=== PATIENT | female | born 1935 | race Caucasian/White ===

== ENCOUNTER → 2017-01-05 | Outpatient (CLI) | payer MEDICARE, BC ==
--- NOTE | 2017-01-05 15:41 | US ---
EXAMINATION TYPE: US thyroid st tissue head/neck DATE OF EXAM: 01/05/2017 COMPARISON: 08/26/2010 CLINICAL HISTORY: E04.1 Thyroid Nodule. Follow up nodule. Hx of BX= WNL per patient. On synthroid. GLAND SIZE: Right Lobe: 2.5 x 1.0 x 1.3 cm Overall Parenchyma: Slightly heterogenous Left Lobe: 2.1 x 1.4 x 1.1 cm cm Overall Parenchyma: Slightly heterogenous Isthmus Thickness: 0.2 cm NODULES RIGHT: # of nodules measured on right: 0 LEFT: # of nodules measured on left: 1 1. 1.5 X 1.0 x 0.9 cm mixed nodule at the mid/lower pole with poorly defined margins. This nodule is taller than wide and shows slight intranodular vascularity. Prior size: 1.8 x 1.2 x 1.1 cm ISTHMUS: # of nodules measured in the isthmus: 0 Bilateral neck scanned, no evidence of lymphadenopathy. IMPRESSION: No enlargement of a left lobe thyroid nodule
== END | disposition home or self-care (01) ==
LOC: RADUSWWP 10:18
PROVIDERS: ATTEND Internal Medicine Endocrinology, Diabetes & Metabolism
DX: E04.1 Nontoxic single thyroid nodule (principal)
CPT/HCPCS: 76536

== ENCOUNTER 2017-03-09 13:23 | Emergency (ER) | payer MEDICARE, BC ==
--- NOTE | 2017-03-09 14:15 | ED ---
General Adult HPI - General Chief complaint: ENT Stated complaint: Nose Bleed Time Seen by Provider: 03/09/17 13:55 Source: patient, RN notes reviewed Mode of arrival: ambulatory Limitations: no limitations - History of Present Illness Initial comments: chief complaint and history of present illness an 81-year-old female with a complaint of left sided nosebleed. Patient reports it started proximal one hour ago. Nose clamp was placed this did control the bleeding that was no posterior bleeding. Patient reports this occurs 2 or 3 times per week. Patient also adds that she has CPAP machine on every night. - Related Data Home Medications Medication Instructions Recorded Confirmed Aspirin [Adult Low Dose Aspirin EC] 81 mg PO DAILY 10/05/16 03/09/17 Dulaglutide [Trulicity] 1.5 mg SQ DAILY 10/05/16 03/09/17 Glimepiride [Amaryl] 2 mg PO DAILY 10/05/16 03/09/17 Levothyroxine Sodium [Synthroid] 75 mcg PO DAILY 10/05/16 03/09/17 [place]-3 Fatty Acids [[place]-3] 12,000 mg PO DAILY 10/05/16 03/09/17 Red Yeast Rice 1,200 mg PO DAILY 10/05/16 03/09/17 metFORMIN HCL 1,000 mg PO DAILY 10/05/16 03/09/17 Cholecalciferol [Vitamin D3] 1,000 unit PO DAILY 03/09/17 03/09/17 Ergocalciferol [Vitamin D2] 50,000 unit PO Q14D 03/09/17 03/09/17 Allergies Allergy/AdvReac Type Severity Reaction Status Date / Time milk AdvReac Diarrhea Verified 03/09/17 14:24 Review of Systems ROS Statement: Those systems with pertinent positive or pertinent negative responses have been documented in the HPI. review of systems no headache or visual acuity changes she has left nares abuse axis, no sore throat no chest pain shows breath GI/ problems. All systems were reviewed. Past medical problems significant for non-insulin diabetes mellitus, hypothyroidism and she uses CPAP machine for sleep apnea. Surgeries include hysterectomyPartial. Family history mother had esophageal carcinoma.nonsmoker nondrinker. ALLERGIES to milk. ROS Other: All systems not noted in ROS Statement are negative. Past Medical History Past Medical History: Diabetes Mellitus, Sleep Apnea/CPAP/BIPAP, Thyroid Disorder History of Any Multi-Drug Resistant Organisms: None Reported Past Surgical History: Hysterectomy Past Anesthesia/Blood Transfusion Reactions: No Reported Reaction Past Psychological History: No Psychological Hx Reported Smoking Status: Former smoker Past Alcohol Use History: None Reported Past Drug Use History: None Reported General Exam - General Exam Comments Initial Comments: General: The patient is awake and alert, here with left nares epistaxis ongoing for one hour. Controlled by squeezing the anterior aspect of the nose. Vital signs temp 98.0 pulse 79 respiratory rate 17, pulse ox 98% room air blood pressure 174 /70. Patient does not normally have high blood pressure. This will be rechecked. Eye: Pupils are equal, round and reactive to light, extra-ocular movements are intact ; there is normal conjunctiva bilaterally. No signs of icterus. Ears, nose, mouth and throat: moist mucous membranes. Examination of the left nares does find 1 spot from which the patient appears to be bleeding from currently controlled with a clot. This area was cauterized with silver nitrate with good effect. Neck: The neck is supple, there is no tenderness or JVD. Cardiovascular: no complaint chest pain or palpitations. Respiratory: no shortness of breath. No wheezing appreciated. Gastrointestinal: no nausea no vomiting no diarrhea complained of. Neurological: no neuro deficits Skin: no bruising. Limitations: no limitations Course Vital Signs 03/09/17 03/09/17 13:43 14:15 Temperature 98.0 F Pulse Rate 79 68 Respiratory 17 18 Rate Blood Pressure 174/70 178/73 O2 Sat by Pulse 98 96 Oximetry Procedures - Procedures Initial comment: procedure; the area was identified within the left nares is a probable source for her epistaxis. This was cauterized with silver nitrate with good effect. Patient with a blood pressure rechecked and observed for short while and make sure the bleeding is controlled. Patient was advised to follow-up with her ENT because of the frequency of her epistaxis. The patient does not appear to be anemic. Dr. Del [place] Medical Decision Making - Medical Decision Making No bleeding is noted after silver nitrate was used to cauterize the area. Vital signs remained stable. Patient alert. Advised follow-up with your family doctor and/or ENT as needed. Disposition Clinical Impression: Epistaxis not due to trauma Disposition: HOME SELF-CARE Condition: Stable Instructions: Nosebleed (ED) Additional Instructions: follow directions. Follow-up family physician or return emergency room as needed. Referrals: Ariana Pastor MD [Primary Care Provider] - 1-2 days Time of Disposition: 14:40
[2017-03-09 14:18] VITALS: RESP 18
[2017-03-09 14:51] VITALS: BP 145/67; PULSE 65; TEMP 98.2
== END 2017-03-09 14:51 | disposition home or self-care (01) ==
LOC: EC 13:23
DX: R04.0 Epistaxis (principal); Z91.011 Allergy to milk products; E11.9 Type 2 diabetes mellitus without complications; G47.30 Sleep apnea, unspecified; E07.9 Disorder of thyroid, unspecified; Z87.891 Personal history of nicotine dependence; Z79.82 Long term (current) use of aspirin; Z79.84 Long term (current) use of oral hypoglycemic drugs; Z79.899 Other long term (current) drug therapy; Z99.89 Dependence on other enabling machines and devices
CPT/HCPCS: 30901; 99283

== ENCOUNTER → 2017-03-23 | Outpatient (CLI) | payer MEDICARE, BC ==
--- NOTE | 2017-03-24 11:20 | MM ---
Reason for exam: screening (asymptomatic). Last mammogram was performed 1 year and 2 months ago. History: Patient is postmenopausal. Physical Findings: A clinical breast exam by your physician is recommended on an annual basis and results should be correlated with mammographic findings. MG 3D Screening Mammo W/Cad Bilateral CC and MLO view(s) were taken. Prior study comparison: January 26, 2016, bilateral MG 3d screening mammo w/cad. January 14, 2015, bilateral MG screening mammo w CAD. The breast tissue is heterogeneously dense. This may lower the sensitivity of mammography. Stable benign calcifications. There is no discrete abnormality. No significant changes when compared with prior studies. ASSESSMENT: Benign, BI-RAD 2 RECOMMENDATION: Routine screening mammogram of both breasts in 1 year.
== END | disposition home or self-care (01) ==
LOC: RADMAMWWP 15:15
PROVIDERS: ATTEND Family Medicine
DX: Z12.31 Encounter for screening mammogram for malignant neoplasm of breast (principal)
CPT/HCPCS: 77063; 77067

== ENCOUNTER 2017-12-11 12:15 | Emergency (ER) | payer MEDICARE, BC ==
[2017-12-11 12:21] VITALS: BP 149/77; PULSE 73; RESP 20; TEMP 98.3
[2017-12-11] MEDS ORDERED: SILVER NITRATE APPLICATOR 1 EACH STICK..EA. TOPICAL STA (12:35)
--- NOTE | 2017-12-11 12:41 | ED ---
General Adult HPI - General Chief complaint: ENT Stated complaint: Nosebleed Source: patient Mode of arrival: ambulatory Limitations: no limitations - History of Present Illness Initial comments: Dictation was produced using Plann[employer] dictation software. please excuse any grammatical, word or spelling errors. Chief Complaint: 82-year-old female past medical history of epistaxis presents with nosebleeds. History of Present Illness: 82-year-old female presents with severe episode of epistaxis. Patient has history of intermittent epistaxis. She states that last night she had a really bad bleed from her nose. Patient has seen ENT in the past. She uses CPAP machine every night. Patient states she's had intermittent nosebleeds however they're well controlled at home by herself however this time was much worse. Patient denies any anticoagulation used she does take baby aspirin. Denies any history of hypertension. Patient states that since being in the emergency department her nose has stopped bleeding. The ROS documented in this emergency department record has been reviewed and confirmed by me. Those systems with pertinent positive or negative responses have been documented in the HPI. All other systems are other negative and/or noncontributory. - Related Data Home Medications Medication Instructions Recorded Confirmed Aspirin [Adult Low Dose Aspirin EC] 81 mg PO DAILY 10/05/16 03/09/17 Dulaglutide [Trulicity] 1.5 mg SQ DAILY 10/05/16 03/09/17 Glimepiride [Amaryl] 2 mg PO DAILY 10/05/16 03/09/17 Levothyroxine Sodium [Synthroid] 75 mcg PO DAILY 10/05/16 03/09/17 [place]-3 Fatty Acids [[place]-3] 12,000 mg PO DAILY 10/05/16 03/09/17 metFORMIN HCL 1,000 mg PO DAILY 10/05/16 03/09/17 Cholecalciferol [Vitamin D3] 1,000 unit PO DAILY 03/09/17 03/09/17 Ergocalciferol [Vitamin D2] 50,000 unit PO Q14D 03/09/17 03/09/17 Ascorbic Acid [Vitamin C with Dulce 500 mg PO DAILY 12/11/17 12/11/17 Hips] Rosuvastatin Calcium [Crestor] 40 mg PO HS 12/11/17 12/11/17 Previous Rx's Medication Instructions Recorded Sodium Chloride [[place]] 1 spray EA NOSTRIL QID #1 bottle 12/11/17 Allergies Allergy/AdvReac Type Severity Reaction Status Date / Time milk AdvReac Diarrhea Verified 12/11/17 12:43 Review of Systems ROS Statement: Those systems with pertinent positive or pertinent negative responses have been documented in the HPI. ROS Other: All systems not noted in ROS Statement are negative. Past Medical History Past Medical History: Diabetes Mellitus, Sleep Apnea/CPAP/BIPAP, Thyroid Disorder History of Any Multi-Drug Resistant Organisms: None Reported Past Surgical History: Hysterectomy Past Anesthesia/Blood Transfusion Reactions: No Reported Reaction Past Psychological History: No Psychological Hx Reported Smoking Status: Former smoker Past Alcohol Use History: None Reported Past Drug Use History: None Reported General Exam - General Exam Comments Initial Comments: PHYSICAL EXAM: General Impression: Alert and oriented x3, not in acute distress HEENT: Normocephalic atraumatic, extra-ocular movements intact, pupils equal and reactive to light bilaterally, mucous membranes moist, no blood in the posterior oropharynx, there is a small bleeding appearing area to the anterior nasal septum on the left naris Cardiovascular: Heart regular rate and rhythm, S1&S2 audible, no murmurs, rubs or gallops Chest: Lungs clear to auscultation bilaterally, no rhonchi, no wheeze, no rales Abdomen: Bowel sounds present, abdomen soft, non-tender, non-distended, no organomegaly Musculoskeletal: Pulses present and equal in all extremities, no peripheral edema Motor: Power 5/5 bilaterally, no focal deficits noted Neurological: CN II-XII grossly intact, no focal motor or sensory deficits noted Skin: Intact with no visualized rashes Psych: Normal affect and mood Limitations: no limitations Course Vital Signs 12/11/17 12:19 Temperature 98.3 F Pulse Rate 73 Respiratory 20 Rate Blood Pressure 149/77 O2 Sat by Pulse 99 Oximetry Medical Decision Making - Medical Decision Making ED course: Her old female presents with clinical presentation consistent with anterior epistaxis. Vital signs upon arrival are within acceptable limits. Source of bleeding is identified on physical examination. Patient hemodynamically stable. No indication for laboratory evaluation at this time. Patient not on any anticoagulation medications warranting coag elation panel evaluation. That area is cauterized. Patient is told that her frequent nosebleeds are likely secondary to CPAP machine. Patient told to keep the nasal septum moist prior to applying her CPAP machine at night. Anterior nasal septum is cauterized using silver nitrate stick. Patient tolerated procedure well. Patient given sterile jelly to apply to her nose to prevent further bleeding. Patient also prescribed a [place] Startex. She is advised to keep the septum moist. Advised to follow-up with ENT physician upon discharge. Disposition Clinical Impression: Epistaxis Disposition: HOME SELF-CARE Instructions: Nosebleed (ED) Prescriptions: Sodium Chloride [[place]] 1 spray EA NOSTRIL QID #1 bottle Is patient prescribed a controlled substance at d/c from ED?: No Referrals: Ariana Pastor MD [Primary Care Provider] - 1-2 days Peter Villa MD [STAFF PHYSICIAN] - 1-2 days Time of Disposition: 12:48
== END 2017-12-11 13:29 | disposition home or self-care (01) ==
LOC: EC 12:15
DX: R04.0 Epistaxis (principal); E11.9 Type 2 diabetes mellitus without complications; E07.9 Disorder of thyroid, unspecified; G47.30 Sleep apnea, unspecified; Z87.891 Personal history of nicotine dependence; Z99.89 Dependence on other enabling machines and devices; Z90.710 Acquired absence of both cervix and uterus; Z79.82 Long term (current) use of aspirin; Z79.84 Long term (current) use of oral hypoglycemic drugs; Z79.899 Other long term (current) drug therapy; Z91.011 Allergy to milk products
CPT/HCPCS: 30901; 99283

== ENCOUNTER → 2018-02-19 | Outpatient (CLI) | payer MEDICARE, BC ==
[2018-02-19 16:27] LABS: Albumin 4.3 g/dL (3.80-4.90); Albumin/Globulin Ratio 2.69 (1.20-2.10); Anion Gap 4.4 mmol/L (4.00-12.00); Calcium 8.9 mg/dL (8.7-10.3); Carbon Dioxide 27.6 mmol/L (21.6-31.8); Globulin 1.6 g/dL (2.1-3.7); LDL Cholesterol,Calculated 44.8 mg/dL (0.0-131.0); Total Bilirubin 0.4 mg/dL (0.2-1.2); Total Protein 5.9 g/dL (6.2-8.2); VLDL Calculation 16.2 mg/dL (5.00-40.00)
[2018-02-19 22:30] LABS: Hemoglobin A1C 7.6 % (4.0-6.0)
== END ==
LOC: LABWHC1 09:53
PROVIDERS: ATTEND Internal Medicine Endocrinology, Diabetes & Metabolism
DX: E11.65 Type 2 diabetes mellitus with hyperglycemia (principal)
CPT/HCPCS: 36415; 80053; 80061; 82043; 82570; 82607; 83036; 84443

== ENCOUNTER → 2018-08-08 | Outpatient (CLI) | payer MEDICARE, BC ==
--- NOTE | 2018-08-08 16:07 | US ---
EXAMINATION TYPE: US thyroid st tissue head/neck DATE OF EXAM: 08/08/2018 COMPARISON: NONE CLINICAL HISTORY: E04.1 Thyroid nodule. Thyroid nodule GLAND SIZE: Right Lobe: 2.8 x 1.2 x 1.3 cm Overall Parenchyma: homogenous Left Lobe: 2.5 x 1.3 x 1.5 cm Overall Parenchyma: heterogeneous Isthmus Thickness: 0.3 cm NODULES RIGHT: # of nodules measured on right: 0 LEFT: # of nodules measured on left: 1 1. 1.5 X 1.1 x 1.1 cm mixed nodule at the mid pole with poorly defined margins; . This nodule is t aller than wide and shows intranodular vascularity. Prior size: 1.5 x 1.0 x 0.9 cm ISTHMUS: # of nodules measured in the isthmus: 0 Bilateral neck scanned, no evidence of lymphadenopathy. IMPRESSION: Stable left thyroid nodule.
== END ==
LOC: RADUSWWP 14:49
PROVIDERS: ATTEND Internal Medicine Endocrinology, Diabetes & Metabolism
DX: E04.1 Nontoxic single thyroid nodule (principal)
CPT/HCPCS: 76536; 77080

== ENCOUNTER → 2018-08-08 | Outpatient (CLI) | payer MEDICARE, BC ==
--- NOTE | 2018-08-09 07:26 | BD ---
EXAMINATION TYPE: Axial Bone Density DATE OF EXAM: 08/08/2018 COMPARISON: NONE CLINICAL HISTORY: disorder of bone Height: 5 '1 /2 Weight: 113 FRAX RISK QUESTIONS: History of Fracture in Adulthood: y Secondary Osteoporosis: RISK FACTORS HISTORY OF: Hip Fracture (Right): When: 2019 History of Wrist Fracture: Rt When: 68 Surgery to Hip(right/): When: 2019 Postmenopausal woman: y MEDICATIONS: Thyroid Medications: Which medication: Levothyroxine How Lon years Additional Medications: type 2 diabetes Additional History: EXAM MEASUREMENTS: Bone mineral densitometry was performed using the [employer] System. Bone mineral density as measured about the Lumbar spine is: ----- L1-L4(G/cm2): 1.250 T Score Values are as follows: ----- L2: -0.8 ----- L3: 1.3 ----- L4: 2.3 ----- L1-L4: 0.6 Bone mineral density about the L hip (g/cm2): 0.945 T Score values are as follows: -----L Neck: -0.7 -----L Total: -1.1 IMPRESSION: Normal (Values between +1 and -1 indicate normal bone mass). Consider repeating this study in 5 year s or sooner if there is some new clinical indication. NOTE: T-SCORE=SD OF THE YOUNG ADULT MEAN.
== END ==
LOC: RADBDWWP 14:47
PROVIDERS: ATTEND Family Medicine
DX: M89.9 Disorder of bone, unspecified (principal)
CPT/HCPCS: 77080

== ENCOUNTER → 2019-08-28 | Outpatient (CLI) | payer MEDICARE, OTHER ==
--- NOTE | 2019-08-28 13:29 | US ---
EXAMINATION TYPE: US thyroid st tissue head/neck DATE OF EXAM: 08/28/2019 COMPARISON: US 08/08/2018 CLINICAL HISTORY: Thyroid nodule E04.1. GLAND SIZE: Right Lobe: 3.2 x 1.1 x 0.9 cm Overall Parenchyma: heterogenous Left Lobe: 2.8 x 1.2 x 1.3 cm Overall Parenchyma: heterogeneous Isthmus Thickness: 0.2 cm NODULES RIGHT: # of nodules measured on right: 0 LEFT: # of nodules measured on left: 1 1. 1.6 X 1.1 x 1.1 cm hypoechoic mixed nodule at the mid pole with well-defined margins; . This no dule is wider than tall and shows intranodular vascularity. Prior size: 1.5 x 1.1 x 1.1 cm ISTHMUS: # of nodules measured in the isthmus: 0 Bilateral neck scanned, no evidence of lymphadenopathy. Stable left side thyroid nodule IMPRESSION: Stable 1.6 cm left thyroid nodule
== END | disposition home or self-care (01) ==
LOC: RADUSWWP 12:33
PROVIDERS: ATTEND Internal Medicine Endocrinology, Diabetes & Metabolism
DX: E04.1 Nontoxic single thyroid nodule (principal)
CPT/HCPCS: 76536

== ENCOUNTER 2019-10-17 22:19 | Inpatient (IN) | payer MEDICARE, OTHER ==
[2019-10-17] MEDS: MORPHINE SULFATE 4 MG/ML SYRINGE IVP STA (23:19)
[2019-10-17 23:48] LABS: Basophils % (A) 0 %; Eosinophils # (A) 0.1 k/uL (0-0.7); Eosinophils % (A) 1 %; HCT 34.6 % (34.0-46.0); HGB 11.4 gm/dL (11.4-16.0); Lymphocytes # (A) 0.8 k/uL (1.0-4.8); Lymphocytes % (A) 8 %; MCH 27.6 pg (25.0-35.0); MCHC 32.8 g/dL (31.0-37.0); MCV 84.3 fL (80.0-100.0); Mean Platelet Volume 7.2; Monocytes # (A) 0.4 k/uL (0-1.0); Monocytes % (A) 3 %; Neutrophils # (A) 9.1 k/uL (1.3-7.7); Neutrophils % (A) 88 %; Platelet Count 285 k/uL (150-450); RBC 4.11 m/uL (3.80-5.40); WBC 10.3 k/uL (3.8-10.6)
--- NOTE | 2019-10-17 23:49 | ED ---
Fall HPI - General Chief Complaint: Fall Stated Complaint: Fall Time Seen by Provider: 10/17/19 22:38 Source: patient, EMS, RN notes reviewed, old records reviewed Mode of arrival: EMS - History of Present Illness Initial Comments: Patient is an 83-year-old female who lives in assisted living of [facility]. She has a history of diabetes sleep apnea and thyroid disorder. She presents today after falling on her left hip while she was walking to get the [place]. She reports that she stumbled with her weight going on the left hip. She also states she fell on her left shoulder. She's had previous right hip fracture 2 years ago it was completed at [facility] in [place]. - Related Data Home Medications Medication Instructions Recorded Confirmed Aspirin [Adult Low Dose Aspirin EC] 81 mg PO HS 10/05/16 10/17/19 Dulaglutide [Trulicity] 1.5 mg SQ Q10D 10/05/16 10/17/19 Glimepiride [Amaryl] 2 mg PO DAILY 10/05/16 10/17/19 Levothyroxine Sodium [Synthroid] 75 mcg PO [id number] 10/05/16 10/17/19 metFORMIN HCL 1,000 mg PO BID 10/05/16 10/17/19 Cholecalciferol [Vitamin D3] 2,000 unit PO DAILY 03/09/17 10/17/19 Ergocalciferol [Vitamin D2] 50,000 unit PO Q14D 03/09/17 10/17/19 Rosuvastatin Calcium [Crestor] 40 mg PO HS 12/11/17 10/17/19 [place]-3 Fatty Acids/Fish Oil 1 cap PO DAILY 10/17/19 10/17/19 [[place]-3 Fish Oil 1,200 mg Sfgl] Vitamin B-12 1000mcg Sl Tab 1,000 mcg SL DAILY 10/17/19 10/17/19 Allergies Allergy/AdvReac Type Severity Reaction Status Date / Time milk AdvReac Diarrhea Verified 10/17/19 23:19 Review of Systems ROS Statement: Those systems with pertinent positive or pertinent negative responses have been documented in the HPI. ROS Other: All systems not noted in ROS Statement are negative. Past Medical History Past Medical History: Diabetes Mellitus, Sleep Apnea/CPAP/BIPAP, Thyroid Disorder History of Any Multi-Drug Resistant Organisms: None Reported Past Surgical History: Hysterectomy Past Anesthesia/Blood Transfusion Reactions: No Reported Reaction Past Psychological History: No Psychological Hx Reported Smoking Status: Former smoker Past Alcohol Use History: Occasional Past Drug Use History: None Reported General Exam - General Exam Comments Initial Comments: 83-year-old female. Alert and oriented. No distress. Limitations: no limitations General appearance: alert, in no apparent distress Head exam: Present: atraumatic, normocephalic, normal inspection Eye exam: Present: normal appearance, PERRL, EOMI. Absent: scleral icterus, conjunctival injection, periorbital swelling ENT exam: Present: normal exam, mucous membranes moist Neck exam: Present: normal inspection. Absent: tenderness, meningismus, lymphadenopathy Respiratory exam: Present: normal lung sounds bilaterally. Absent: respiratory distress, wheezes, rales, rhonchi, stridor Cardiovascular Exam: Present: regular rate, normal rhythm, normal heart sounds. Absent: systolic murmur, diastolic murmur, rubs, gallop, clicks GI/Abdominal exam: Present: soft, normal bowel sounds. Absent: distended, tenderness, guarding, rebound, rigid Extremities exam: Present: normal inspection, full ROM, normal capillary refill. Absent: tenderness, pedal edema, joint swelling, calf tenderness Left Shoulder Exam: Present: full ROM, tenderness (Patient has tenderness over the greater tuberosity.). Absent: normal inspection Upper Arm exam: Present: normal inspection, full ROM Elbow exam: Present: normal inspection, full ROM Forearm Wrist exam: Present: normal inspection, full ROM Hand Wrist exam: Present: normal inspection, full ROM Neuro motor exam: Present: wrist extension intact, thumb opposition intact, thumb IP flexion intact, thumb adduction intact, fingers 2-5 abduction intact Left Hip exam: Present: normal inspection, tenderness Upper Leg exam: Present: normal inspection, full ROM Knee exam: Present: normal inspection, full ROM Lower Leg exam: Present: normal inspection, full ROM Ankle exam: Present: normal inspection, full ROM Foot/Toe exam: Present: normal inspection, full ROM Neurovascular tendon exam: Present: no vascular compromise Gait: unable to bear weight Back exam: Present: normal inspection Neurological exam: Present: alert, oriented X3, CN II-XII intact Psychiatric exam: Present: normal affect, normal mood Skin exam: Present: warm, dry, intact, normal color. Absent: rash Course Vital Signs 10/17/19 22:22 Temperature 98.3 F Pulse Rate 87 Respiratory 16 Rate Blood Pressure 169/78 O2 Sat by Pulse 96 Oximetry Procedures - Orthopedic Splinting/Casting Injury #1 Side: left Upper Extremity Injury Location: shoulder Upper Extremity Immobilizer: sling/shoulder immobilizer Medical Decision Making - Medical Decision Making Patient is an 83-year-old female Patient is returned today with trip and fall today landing on her left hip and left shoulder. X-rays reveal evidence of the greater trochanter fracture on the left shoulder and humerus. X-ray shows an intertrochanteric fracture of the left hip. Patient is not on blood thinners. Patient was informed of these results and will be admitted this time. Discussed the case personally with Dr. Thornton who accepts admission. - Lab Data Result diagrams: 10/17/19 23:30 10/17/19 23:30 Lab Results 10/17/19 10/17/19 10/17/19 Range/Units 23:30 23:30 23:30 WBC 10.3 (3.8-10.6) k/uL RBC 4.11 (3.80-5.40) m/uL Hgb 11.4 (11.4-16.0) gm/dL Hct 34.6 (34.0-46.0) % MCV 84.3 (80.0-100.0) fL MCH 27.6 (25.0-35.0) pg MCHC 32.8 (31.0-37.0) g/dL RDW 14.0 (11.5-15.5) % Plt Count 285 (150-450) k/uL Neutrophils % 88 % Lymphocytes % 8 % Monocytes % 3 % Eosinophils % 1 % Basophils % 0 % Neutrophils # 9.1 H (1.3-7.7) k/uL Lymphocytes # 0.8 L (1.0-4.8) k/uL Monocytes # 0.4 (0-1.0) k/uL Eosinophils # 0.1 (0-0.7) k/uL Basophils # 0.0 (0-0.2) k/uL PT 9.6 (9.0-12.0) sec INR 0.9 (<1.2) APTT 25.1 (22.0-30.0) sec Sodium 134 L (137-145) mmol/L Potassium 3.9 (3.5-5.1) mmol/L Chloride 102 (98-107) mmol/L Carbon Dioxide 22 (22-30) mmol/L Anion Gap 10 mmol/L BUN 15 (7-17) mg/dL Creatinine 0.75 (0.52-1.04) mg/dL Est GFR (CKD-EPI)AfAm 85 (>60 ml/min/1.73 sqM) Est GFR (CKD-EPI)NonAf 74 (>60 ml/min/1.73 sqM) Glucose 188 H (74-99) mg/dL Calcium 9.1 (8.4-10.2) mg/dL Total Bilirubin 0.5 (0.2-1.3) mg/dL AST 20 (14-36) U/L ALT 13 (4-34) U/L Alkaline Phosphatase 79 (38-126) U/L Total Protein 6.2 L (6.3-8.2) g/dL Albumin 3.9 (3.5-5.0) g/dL - Radiology Data Radiology results: report reviewed Acute nondisplaced intertrochanteric fracture of the left femur. Acute fracture of the greater tuberosity of the humerus. Chest x-ray shows pleural reaction and atelectasis of the left lung base. Normal heart. Disposition Clinical Impression: Humerus fracture, Intertrochanteric fracture of left hip Disposition: ADMITTED IP TO THIS [facility] Condition: Stable Is patient prescribed a controlled substance at d/c from ED?: No Referrals: Soren Kelly DO [Primary Care Provider] - 1-2 days Time of Disposition: 00:15
--- NOTE | 2019-10-17 23:51 | XR ---
EXAMINATION TYPE: XR chest 1V DATE OF EXAM: 10/17/2019 COMPARISON: NONE HISTORY: Fall. Pain. TECHNIQUE: Single view FINDINGS: There is some pleural reaction and atelectasis at the lateral left lung base. The other mad[place] g nam are fairly clear. There is no evidence of pneumothorax. Heart size is normal. There is no he art failure. I see no rib fracture. IMPRESSION: Pleural reaction and atelectasis left lung base. Normal heart.
--- NOTE | 2019-10-17 23:52 | XR ---
EXAMINATION TYPE: XR shoulder complete LT DATE OF EXAM: 10/17/2019 COMPARISON: NONE HISTORY: Shoulder pain TECHNIQUE: FINDINGS: There is nondisplaced 2.5 cm chip fracture of the greater tuberosity of the humerus. There is no dislocation. The scapula appears intact. AC joint is intact. IMPRESSION: Acute fracture of the greater tuberosity of the humerus.
--- NOTE | 2019-10-17 23:53 | XR ---
EXAMINATION TYPE: XR Hip LT and AP Pelvis DATE OF EXAM: 10/17/2019 COMPARISON: NONE HISTORY: Fall. Hip pain TECHNIQUE: 3 views FINDINGS: The pelvic ring is intact. There is old right hip nailing noted. There is an acute fracture of the proximal left femur which is predominantly intertrochanteric. There is no displacement. There is some narrowing and spurring at the left hip joint. Sacroiliac joints appear normal. IMPRESSION: Acute nondisplaced intertrochanteric fracture left femur.
[2019-10-17 23:56] LABS: INR 0.9 (<1.2); Partial Thromboplastin Time 25.1 sec (22.0-30.0); Prothrombin Time 9.6 sec (9.0-12.0)
[2019-10-18] LABS: Albumin 3.9 g/dL (3.5-5.0); Calcium 9.1 mg/dL (8.4-10.2); Potassium 3.9 mmol/L (3.5-5.1); Total Bilirubin 0.5 mg/dL (0.2-1.3); Total Protein 6.2 g/dL (6.3-8.2)
[2019-10-18] MEDS ORDERED: NALOXONE 0.4 MG/ML 1 ML VIAL IV PRN ×2 (00:15→19:43)
[2019-10-18] MEDS ORDERED: MORPHINE SULFATE 4 MG/ML SYRINGE IV PRN (00:15)
[2019-10-18] MEDS ORDERED: ACETAMINOPHEN TAB 325 MG TAB PO PRN (00:15)
[2019-10-18] MEDS ORDERED: IBUPROFEN 400 MG TAB PO PRN (00:15)
[2019-10-18] MEDS ORDERED: ONDANSETRON 4 MG/2 ML VIAL IVP PRN (00:15)
[2019-10-18] MEDS: SODIUM CHLORIDE 0.9% 1,000 ML IV SCH ×3 (00:52→20:25)
[2019-10-18] MEDS ORDERED: ENOXAPARIN 40 MG/0.4 ML SYRINGE SQ SCH (10:00)
[2019-10-18] MEDS ORDERED: NON FORMULARY DRUG (Dulaglutide [Trulicity] 1.5 MG) SQ SCH (10:00)
--- NOTE | 2019-10-18 10:06 | P.HPOR ---
<Jazmine Donovan J - Last Filed: 10/18/19 09:54> History of Present Illness H&P Date: 10/18/19 Chief Complaint: Left intertrochanteric hip fracture The patient is an an 83-year-old female with a past medical history including diabetes mellitus, sleep apnea, and hypothyroidism who presented to the emergency department last night after sustaining a fall in her apartment building. She states that she went down to get her mail in the hallway and she turned quickly and lost her balance. She fell onto her left side. She denies hitting her head. The patient does have a history of a right hip fracture that was fixed at [facility] and she was following up with Dr. Bobo locally. She does live alone in her assisted living apartment and has a boyfriend of 10 years that lives a block away. She does not use a cane or a walker at home. She was found to have a left intertrochanteric fracture upon evaluation in the ER and she was admitted to orthopedics for further surgical treatment. The patient was also complaining of left shoulder pain after the fall and x-rays revealed a left greater tuberosity fracture of the humerus. Review of Systems Constitutional: Denies chills, Denies fever Cardiovascular: Denies chest pain, Denies shortness of breath Respiratory: Denies cough Gastrointestinal: Denies abdominal pain, Denies diarrhea, Denies nausea, Denies vomiting Musculoskeletal: left: hip pain, hip stiffness, hip swelling, shoulder pain, mehran ulder stiffness, shoulder swelling Past Medical History Past Medical History: Diabetes Mellitus, Sleep Apnea/CPAP/BIPAP, Thyroid Disorder History of Any Multi-Drug Resistant Organisms: None Reported Past Surgical History: Hysterectomy Past Anesthesia/Blood Transfusion Reactions: No Reported Reaction Past Psychological History: No Psychological Hx Reported Smoking Status: Former smoker Past Alcohol Use History: Occasional Past Drug Use History: None Reported - Past Family History Father Family Medical History: No Reported History Medications and Allergies Home Medications Medication Instructions Recorded Confirmed Type Aspirin [Adult Low Dose Aspirin EC] 81 mg PO HS 10/05/16 10/17/19 History Dulaglutide [Trulicity] 1.5 mg SQ Q10D 10/05/16 10/17/19 History Glimepiride [Amaryl] 2 mg PO DAILY 10/05/16 10/17/19 History Levothyroxine Sodium [Synthroid] 75 mcg PO MOTUWETHFRSA 10/05/16 10/17/19 History metFORMIN HCL 1,000 mg PO BID 10/05/16 10/17/19 History Cholecalciferol [Vitamin D3] 2,000 unit PO DAILY 03/09/17 10/17/19 History Ergocalciferol [Vitamin D2] 50,000 unit PO Q14D 03/09/17 10/17/19 History Rosuvastatin Calcium [Crestor] 40 mg PO HS 12/11/17 10/17/19 History [place]-3 Fatty Acids/Fish Oil 1 cap PO DAILY 10/17/19 10/17/19 History [Adrian-3 Fish Oil 1,200 mg Sfgl] Vitamin B-12 1000mcg Sl Tab 1,000 mcg SL DAILY 10/17/19 10/17/19 History Allergies Allergy/AdvReac Type Severity Reaction Status Date / Time milk AdvReac Diarrhea Verified 10/18/19 14:42 Physical Examination The patient is an 83 year old female that is no acute distress. She is alert and oriented x3. The patient's head is normocephalic and atraumatic. Exam of the cervical spine reveals no pain upon palpation or range of motion. Exam of the right upper extremity reveal no obvious deformities or pain upon range of motion. Exam of the left upper extremity reveals no obvious deformity, ecchymosis, or open wounds. There is pain to palpation of the left anterior and lateral shoulder. Exam of the right lower extremity reveals no pain upon palpation. Exam of the left lower extremity reveals a slightly shortened leg. There is pain upon palpation to the lateral hip. There is pain upon logrolling and any range of motion of the leg. Bilateral calves are soft and nontender. Patient has good foot and ankle motion bilaterally. Neurological and circulatory status is intact. Results - Labs Labs: Abnormal Lab Results - Last 24 Hours (Table) 10/17/19 10/17/19 Range/Units 23:30 23:30 Neutrophils # 9.1 H (1.3-7.7) k/uL Lymphocytes # 0.8 L (1.0-4.8) k/uL Sodium 134 L (137-145) mmol/L Glucose 188 H (74-99) mg/dL Total Protein 6.2 L (6.3-8.2) g/dL H & H 10/17/19 Range/Units 23:30 Hgb 11.4 (11.4-16.0) gm/dL Hct 34.6 (34.0-46.0) % Coagulation 10/17/19 Range/Units 23:30 INR 0.9 (<1.2) Result Diagrams: 10/17/19 23:30 10/17/19 23:30 - Diagnostic results Shoulder x-ray: image reviewed (X-rays of the left shoulder dated 10/17/2019 reveals a nondisplaced chip fracture of the greater tuberosity of the humerus. No dislocation noted.) Hip x-ray: image reviewed (X-rays of the left hip and pelvis dated 10/17/2019 reveals a nondisplaced intertrochanteric fracture of the left femur. There are some arthritic changes to the left hip joint) Assessment and Plan (1) Fall Current Visit: Yes Status: Acute Code(s): W19.XXXA - UNSPECIFIED FALL, INITIAL ENCOUNTER SNOMED Code(s): 4147247 (2) Diabetes mellitus Current Visit: Yes Status: Acute Code(s): E11.9 - TYPE 2 DIABETES MELLITUS WITHOUT COMPLICATIONS SNOMED Code(s): 55250017 (3) Hypothyroidism Current Visit: Yes Status: Acute Code(s): E03.9 - HYPOTHYROIDISM, UNSPECIFIED SNOMED Code(s): 56971744 (4) Sleep apnea Current Visit: Yes Status: Acute Code(s): G47.30 - SLEEP APNEA, UNSPECIFIED SNOMED Code(s): 11099126 (5) Humerus fracture Current Visit: Yes Status: Acute Code(s): S42.309A - UNSP FRACTURE OF SHAFT OF HUMERUS, UNSP ARM, INIT SNOMED Code(s): 27025133 (6) Intertrochanteric fracture of left hip Current Visit: Yes Status: Acute Code(s): S72.142A - DISPLACED INTERTROCHANTERIC FRACTURE OF LEFT FEMUR, INIT SNOMED Code(s): 818805091 Plan: The clinical and x-ray findings were discussed with the patient. The case was discussed with Dr. Thornton. The patient will remain NPO today for a left hip IT nail this afternoon. The procedure was discussed with the patient and she agrees to proceed with surgery today. She will remain on bedrest and nonweightbearing to the left lower extremity. Maintain sling to the left upper extremity with nonweightbearing. Continue pain control as needed. Internal medicine has been consulted for surgical clearance. We will continue to follow patient closely and make further recommendations as needed. The patient may need skilled rehab upon discharge from the hospital. <Josias Thornton - Last Filed: 10/18/19 16:59> Results - Labs Labs: Abnormal Lab Results - Last 24 Hours (Table) 10/17/19 10/17/19 10/18/19 Range/Units 23:30 23:30 15:08 Neutrophils # 9.1 H (1.3-7.7) k/uL Lymphocytes # 0.8 L (1.0-4.8) k/uL Sodium 134 L (137-145) mmol/L Glucose 188 H (74-99) mg/dL POC Glucose (mg/dL) 71 L (75-99) mg/dL Total Protein 6.2 L (6.3-8.2) g/dL H & H 10/17/19 Range/Units 23:30 Hgb 11.4 (11.4-16.0) gm/dL Hct 34.6 (34.0-46.0) % Coagulation 10/17/19 Range/Units 23:30 INR 0.9 (<1.2) Result Diagrams: 10/17/19 23:30 10/17/19 23:30 Assessment and Plan Plan: Discussed with SOHAIL Donovan and agree with above (amendments/correction noted below). The patient was also seen and examined by me. S: The patient experienced a mechanical fall. She was walking and something caught her eye. She turned around to go back to see it and somehow fell, landing on her left hip and shoulder. She denies feeling dizzy or lightheaded. She localizes the pain to the left hip and left shoulder and denies other identified injuries. O: No ecchymosis or abrasions around the hip or shoulder. Point tenderness to palpation at the greater tuberosity. Pain with palpation of the greater trochanter. Positive logroll. Subjectively normal light touch sensation throughout the distal dermatomes and symmetric bilaterally. Intact gross motor function with dorsiflexion, plantarflexion and great toe extension. Imaging: Simple, nondisplaced left intertrochanteric femur fracture. No comminution. Moderately advanced arthritis in the hip. Healed right intertrochanteric fracture with cephalo-medullary nail in place. Nondisplaced greater tuberosity fracture of the left shoulder. The dislocation/subluxation. A: 1. Nondisplaced left intertrochanteric femur fracture and nondisplaced left shoulder greater tuberosity fracture status post fall on 10/17/19 P: I discussed the diagnosis and radiographic findings in detail with the patient and her boyfriend. We reviewed the pertinent anatomy and pathophysiology of the fracture. We discussed treatment options and I explained the rationale behind surgical intervention. I recommended operative treatment in the form of closed reduction and cephalomedullary nailing for the hip and nonoperative treatment with protected mobilization for the shoulder.. We discussed the surgical plan as well as the expected postoperative course. Risks and benefits were reviewed including (but not limited to) the risks of infection, bleeding, blood clots, delayed or nonunion, anesthesia related complications and possible need for additional surgery. Questions were invited and answered. The patient expressed understanding and wishes to proceed with surgery. The patient will be kept on bedrest. Continue PRN pain management. NPO. Thank you for allowing me to participate in the care of this patient. Josias Thornton D.O. [facility]
[2019-10-18] MEDS: CYANOCOBALAMIN 500 MCG TAB PO SCH (11:05)
[2019-10-18] MEDS: LEVOTHYROXINE 75 MCG TAB PO SCH (11:05)
[2019-10-18] MEDS: metFORMIN 500 MG TAB PO SCH ×2 (11:05→21:07)
[2019-10-18] MEDS ORDERED: LACTATED RINGERS 1,000 ML IV ONE (14:56)
[2019-10-18] MEDS ORDERED: ONDANSETRON 4 MG/2 ML VIAL ONE (15:02)
[2019-10-18 15:10] LABS: Glucose,Whole Blood 71 mg/dL (75-99)
[2019-10-18] MEDS ORDERED: ONDANSETRON 4 MG/2 ML VIAL IVP ONE (15:11)
[2019-10-18] MEDS ORDERED: DEXAMETHASONE SOD PHOSPHATE 10 MG/ML 1 ML VIAL IV ONE (15:11)
[2019-10-18] MEDS ORDERED: SODIUM CHLORIDE 0.9% 100 ML with ceFAZolin 2,000 MG IV ONE ×2 (17:16)
[2019-10-18] MEDS ORDERED: MIDAZOLAM 2 MG/2 ML VIAL ONE (17:16)
[2019-10-18] MEDS ORDERED: KETAMINE 10 MG/ML 20 ML VIAL ONE (17:16)
[2019-10-18] MEDS ORDERED: fentaNYL (PF) 50 MCG/ML 2 ML AMP ONE (17:16)
[2019-10-18] MEDS ORDERED: LIDOCAINE 1%-EPI 1:100,000 20 ML VIAL SQ ONE ×3 (18:13→19:05)
[2019-10-18] MEDS ORDERED: HYDROcodone/APAP 5-325MG 1 EACH TAB PO PRN ×2 (19:43)
--- NOTE | 2019-10-18 19:43 | P.OP ---
Date of Procedure: 10/18/19 Preoperative Diagnosis: 1. Left intertrochanteric femur fracture 2. Nondisplaced left greater tuberosity fracture Postoperative Diagnosis: 1. Left intertrochanteric femur fracture 2. Nondisplaced left greater tuberosity fracture Procedure(s) Performed: Closed reduction and cephalomedullary nailing of left intertrochanteric femur fracture Implants: Synthes TFNA short proximal femoral nail, 125 11 mm x 170 mm; 85 mm helical blade and a 5.0 mm distal locking screw. Anesthesia: spinal Surgeon: Josias Thornton Estimated Blood Loss (ml): 150 Condition: stable Disposition: PACU Indications for Procedure: The patient is very pleasant 83-year-old female who sustained a left intertrochanteric femur fracture after a mechanical fall. The trauma also produced a nondisplaced left greater tuberosity fracture. Surgical treatment was recommended for the hip and nonsurgical treatment for the shoulder. Surgical risks and benefits were discussed, including (but not limited to) the risks of infection, bleeding, anesthesia-related complications and blood clots. She expressed understanding and wished to proceed with surgery. Consent forms were signed. The surgical site was confirmed and marked preoperatively. Description of Procedure: The patient was brought to the operative suite by the anesthesia team. Spinal anesthesia was administered uneventfully. The patient was transferred to the operating table and positioned supine. The foot of the operative limb was secured in a well-padded boot and positioned straight. The contralateral limb was flexed, abducted and secured to a padded, well-leg reinoso. All bony prominences were padded in the typical fashion. The left upper extremity was positioned carefully to avoid displacing the tuberosity fracture. Prophylactic antibiotics were administered. A time-out was performed, confirming patient identifiers, the operative side, site and procedure: all team members expressed agreement. The fracture was evaluated with intraoperative fluoroscopy. There was mild displacement of the fracture. This was manually reduced and confirmed on orthogonal images. The left lower extremity was then prepped and draped in a standard, sterile fashion. A small stab incision was made proximal to the greater trochanter and a guidewire was inserted. Fluoroscopy was used to localize the starting point at the tip of the greater trochanter and the wire was advanced into the proximal femur. The initial position was found to be suboptimal and a second wire was inserted through a targeting guide. The starting point and trajectory of the wire were adjusted until satisfactory and the first wire was removed. The skin incision was extended to accommodate the entry reamer, which was inserted through a tissue protector and advanced to the level of the lesser trochanter under fluoroscopic guidance. The reamer and guidewire were removed. Based on the patient's anatomy and fracture pattern, an 11 mm short nail was selected. This was attached to the insertion handle but met resistance in the proximal medullary canal upon attempted insertion. The nail was removed. A ball- tipped guidewire was then passed down the medullary canal which was sequentially reamed up to 13.5 mm. The nail was reinserted and passed easily down the medullary canal, confirming depth of insertion on imaging. The guidewire was removed. An incision was made laterally along the proximal thigh for placement of the helical blade. A drill sleeve was inserted through the aiming arm and advanced to the lateral femoral cortex. A guidewire was advanced through the nail and into the femoral head. Position of the wire was confirmed on orthogonal views and adjusted to a satisfactory position. Measuring off the guidewire, an 85 mm blade was selected. A cannulated drill was used and the blade was inserted over the guidewire to the appropriate depth. The set screw was tightened to lock the blade in place, then slightly loosened to allow for dynamic compression. Compression was applied through the lag screw insertion cannula, visually confirmed on imaging. The guidewire was removed. A small incision was made for the distal screw. The drill sleeve was inserted and advanced to the lateral femoral cortex. The bone was drilled & measured. A 5 mm distal cortical screw was inserted. Her bone quality was exceptional and the screw gained remarkable purchase. The insertion handle and aiming arm were removed. Final x-rays were taken to confirm fracture reduction and implant position. The hip was ranged under live fluoroscopy: The proximal femur moved as a single unit, with no appreciable motion at the fracture site. All wounds were irrigated thoroughly with normal saline. The subcutaneous tissues were closed in layers: #1 Vicryl for the fascia; interrupted 0 Vicryl and 2-0 Vicryl sutures for the deep and superficial subcutaneous tissues. The skin was closed with delicia. The operative sites were injected with local anaesthetic with epinephrine for adjunct postoperative pain control and hemostasis. Sterile dressings were applied. All sponge, needle and instrument counts were correct at the end of the procedure. After the case was completed, a repeat fluoroscopic view of the left proximal humerus was obtained and the tuberosity fracture was still nondisplaced. The patient tolerated the procedure well. She was transferred to a hospital bed and transported to the recovery room in stable condition.
[2019-10-18 19:48] LABS: Glucose,Whole Blood 178 mg/dL (75-99)
[2019-10-18] MEDS: MORPHINE SULFATE 4 MG/ML SYRINGE IVP STA ×3 (19:51→20:24)
--- NOTE | 2019-10-18 19:54 | XR ---
Fluoroscopy INDICATION: Pain FINDINGS: Fluoroscopy time: 1 seconds. Images obtained: 1. IMPRESSIONS: 1. Documentation of fluoroscopy.
--- NOTE | 2019-10-18 19:55 | FL ---
Fluoroscopy INDICATION: Pain FINDINGS: Fluoroscopy time: 1 minute 55 seconds. Images obtained: 4. IMPRESSIONS: 1. Documentation of fluoroscopy.
--- NOTE | 2019-10-18 20:24 | XR ---
EXAMINATION TYPE: XR Hip Limited LT DATE OF EXAM: 10/18/2019 COMPARISON: None HISTORY: Yes postop surgery TECHNIQUE: AP left hip FINDINGS: Postsurgical changes are present. There is placement of a hip pin through a distal femoral neck or intertrochanteric fracture. Postsurgical changes are within soft tissues. Surgical skin stapl es are present laterally. IMPRESSION: 1. No new fractures post left hip pinning
[2019-10-18] MEDS: ATORVASTATIN 80 MG TAB PO SCH (21:07)
--- NOTE | 2019-10-18 22:42 | P.CONS ---
History of Present Illness - Reason for Consult Consult date: 10/18/19 Medical management Requesting physician: Josias Thornton - Chief Complaint Fall - History of Present Illness Consultation: This is a very pleasant 83-year-old patient of Dr. Kelly. Patient carveout to take the male and she took a fall falling on her left hip. Subsequently had a left hip fracture. Chronic stable medical conditions include diabetes, obstructive sleep apnea, hypothyroid. Patient normally has a good activity. Able to do on her base about a block and emani flight of stairs. No chest pain or shortness breath. Denies any cardiac history. Last stress test was about 5 years ago. Without much change in exercise endurance. Currently laying in bed. Some pain at the operative site. Patient this afternoon is due to surgery. Review of systems: GEN.: None EYES: None HEENT: None NECK: None RESPIRATORY: None CARDIOVASCULAR: None GASTROINTESTINAL: None GENITOURINARY: None MUSCULOSKELETAL: Joint pains LYMPHATICS: None HEMATOLOGICAL: None PSYCHIATRY: None NEUROLOGICAL: None Past medical history to include: Diabetes, obstructive sleep apnea, hypothyroid Social history: Lives at [facility]. Alcohol occasionally. Did smoke some in the remote past Family history: Reviewed, noncontributory to presentation Physical examination: VITAL SIGNS: 97.7, 77, 16, 137/65, 97% on 2 L GENERAL: BMI 20.7, laying in bed, awake. EYES: Pupils equal. Conjunctiva normal. HEENT: External appearance of nose and ears normal, oral cavity grossly normal. NECK: JVD not raised; masses not palpable. HEART: First and second heart sounds are normal; no edema. LUNGS: Respiratory rate normal; decreased breath sounds. ABDOMEN: Soft, nontender, liver spleen not palpable, no masses palpable. PSYCH: Alert and oriented x3; mood and affect normal. MUSCULOSKELETAL: Evidence of severe ON the hands, limited range of motion of the left hip NEUROLOGICAL: Cranial nerves grossly intact; no facial asymmetry, power and sensation grossly intact. LYMPHATICS: No lymph nodes palpable in the axilla and neck INVESTIGATIONS, reviewed in the clinical context: White count 10.3 hemoglobin 11.4 platelets 285 potassium 3.9 creatinine 0.75 Chest x-ray film personally reviewed by me-no obvious infiltrates Left hip x-ray-acute nondisplaced ID fractured left femur Assessment: -Acute nondisplaced ID fractured left femur secondary to fall -Diabetes mellitus type 2 and oral hypoglycemic -Hypothyroid -Obstructive sleep apnea -Hyperlipidemia -Primary osteoarthritis Plan: Communication was placed to the nurse the patient is medically stable to proceed for surgery. Given her age she is moderate risk. Patient has no cardiac or pulmonary symptoms. Has a fair exercise tortoise. She DVT prophylaxis. Given was discussed at length with the patient questions also. Hold off Amaryl. Follow Accu-Cheks. Thank you Dr. Hubbard Past Medical History Past Medical History: Diabetes Mellitus, Sleep Apnea/CPAP/BIPAP, Thyroid Disorder History of Any Multi-Drug Resistant Organisms: None Reported Past Surgical History: Hysterectomy Past Anesthesia/Blood Transfusion Reactions: No Reported Reaction Past Psychological History: No Psychological Hx Reported Smoking Status: Former smoker Past Alcohol Use History: Occasional Past Drug Use History: None Reported - Past Family History Father Family Medical History: No Reported History Medications and Allergies Home Medications Medication Instructions Recorded Confirmed Type Aspirin [Adult Low Dose Aspirin EC] 81 mg PO HS 10/05/16 10/17/19 History Dulaglutide [Trulicity] 1.5 mg SQ Q10D 10/05/16 10/17/19 History Glimepiride [Amaryl] 2 mg PO DAILY 10/05/16 10/17/19 History Levothyroxine Sodium [Synthroid] 75 mcg PO MOTUWETHFRSA 10/05/16 10/17/19 History metFORMIN HCL 1,000 mg PO BID 10/05/16 10/17/19 History Cholecalciferol [Vitamin D3] 2,000 unit PO DAILY 03/09/17 10/17/19 History Ergocalciferol [Vitamin D2] 50,000 unit PO Q14D 03/09/17 10/17/19 History Rosuvastatin Calcium [Crestor] 40 mg PO HS 12/11/17 10/17/19 History [place]-3 Fatty Acids/Fish Oil 1 cap PO DAILY 10/17/19 10/17/19 History [[place]-3 Fish Oil 1,200 mg Sfgl] Vitamin B-12 1000mcg Sl Tab 1,000 mcg SL DAILY 10/17/19 10/17/19 History Allergies Allergy/AdvReac Type Severity Reaction Status Date / Time milk AdvReac Diarrhea Verified 10/18/19 14:42 Physical Exam Vitals: Vital Signs Temp Pulse Pulse Resp BP BP Pulse Ox 10/18/19 05:12 97.7 F 77 16 137/65 97 10/18/19 00:55 97.5 F L 84 16 141/62 96 10/17/19 22:22 98.3 F 87 16 169/78 96 Intake and Output 10/17/19 10/18/19 10/18/19 22:59 06:59 14:59 Other: Voiding Method Indwelling Catheter Weight 51.256 kg 51.256 kg Results CBC & Chem 7: 10/17/19 23:30 10/17/19 23:30 Labs: Abnormal Lab Results - Last 24 Hours (Table) 10/17/19 10/17/19 Range/Units 23:30 23:30 Neutrophils # 9.1 H (1.3-7.7) k/uL Lymphocytes # 0.8 L (1.0-4.8) k/uL Sodium 134 L (137-145) mmol/L Glucose 188 H (74-99) mg/dL Total Protein 6.2 L (6.3-8.2) g/dL
[2019-10-19] MEDS: KETOROLAC 30 MG/ML 1 ML VIAL IVP PRN ×3 (04:21→19:01)
[2019-10-19] MEDS: LEVOTHYROXINE 75 MCG TAB PO SCH (05:34)
[2019-10-19 07:25] LABS: Basophils % (A) 0 %; Eosinophils % (A) 0 %; HCT 30.8 % (34.0-46.0); Lymphocytes # (A) 0.6 k/uL (1.0-4.8); Lymphocytes % (A) 10 %; MCH 27.6 pg (25.0-35.0); MCHC 32.4 g/dL (31.0-37.0); MCV 85.3 fL (80.0-100.0); Mean Platelet Volume 6.7; Monocytes # (A) 0.3 k/uL (0-1.0); Monocytes % (A) 5 %; Neutrophils # (A) 5.6 k/uL (1.3-7.7); Neutrophils % (A) 85 %; Platelet Count 227 k/uL (150-450); RBC 3.61 m/uL (3.80-5.40); WBC 6.6 k/uL (3.8-10.6)
[2019-10-19] MEDS: CYANOCOBALAMIN 500 MCG TAB PO SCH (08:13)
[2019-10-19] MEDS: metFORMIN 500 MG TAB PO SCH ×2 (08:13→20:29)
[2019-10-19] MEDS: ENOXAPARIN 40 MG/0.4 ML SYRINGE SQ SCH (08:13)
--- NOTE | 2019-10-19 14:28 | P.PN ---
Progress Note - Text Progress Note Date: 10/19/19 Orthopedics: History of present Illness: Patient is very pleasant 83-year-old female who is seen and examined bedside for follow-up evaluation in regards to her left shoulder and left hip. She is status post left hip intramedullary nail fixation for left intertrochanteric hip fracture performed yesterday, 10/18/2019. Patient is also known to have a left greater tuberosity fracture of the humerus. She continues using a sling for the left upper extremity. She is nonweightbearing with the left upper extremity. She feels her pain is more significant at her left shoulder. She was able to transfer to at bedside chair today and back into bed. She feels her left hip pain is well-controlled. She has no complaints at the bedside today. She is happy with her progress thus far postoperatively. Physical exam: Patient is awake, alert, and oriented 3 Vital signs stable Good chest excursion with deep inspiration and expiration Left lower extremity is shortened and internally rotated No significant pain with palpation over the surgical sites the left hip Dressings at the left hip and remain dry and intact with 2 small spots of dried blood [place] remain intact underneath the dressing Dorsiflexion and plantar flexion positive sustained left lower extremity Neurovascularly intact bilateral lower extremities Dorsiflexion, plantarflexion, and extensor hallucis longus positive sustained bilaterally Calves are soft and supple; No signs or symptoms of DVT; No calf pain Sling is intact of the left upper extremity Pain with palpation over the left anterior lateral shoulder Inspection of the left shoulder shows no significant erythema, bruising, or swelling No sign of infection of the left shoulder Assessment: Status post left intramedullary nail fixation for intertrochanteric hip fracture Left greater tuberosity fracture of the left humerus Left hip pain Left shoulder pain Status post fall Diabetes mellitus Hypothyroidism Sleep apnea Plan: 1. Patient to remain weight-bearing as tolerated on the left lower extremity; patient may work with physical therapy to increase mobility and ambulation 2. Patient will be non-weightbearing with the left upper extremity; continue use sling for the left shoulder for comfort support 3. Keep dressing over the left hip clean, dry, and intact; patient may shower with dressing intact 4. Continue pain control with oral Melrude and IV morphine as needed for pain control 5. Continue with anticoagulation therapy with Lovenox 40 mg subcu daily 6. Medicine to continue following the patient for their other medical diagnosis 7. We'll continue to follow the patient closely; depending on the patient's progress, we may plan for discharge as early as 10/21/2019, to [facility] 8. Patient can follow-up with Dr. Josias Thornton at [facility] in 1-2 weeks following discharge
[2019-10-19] MEDS: SODIUM CHLORIDE 0.9% 1,000 ML IV SCH (18:09)
--- NOTE | 2019-10-19 18:35 | P.PN ---
Progress Note - Text Progress Note Date: 10/19/19 - Chief Complaint Fall - History of Present Illness Consultation: This is a very pleasant 83-year-old patient of Dr. Kelly. Patient carveout to take the male and she took a fall falling on her left hip. Subsequently had a left hip fracture. Chronic stable medical conditions include diabetes, obstructive sleep apnea, hypothyroid. Patient normally has a good activity. [place] about [place] and emani flight of stairs. No chest pain or shortness breath. Denies any cardiac history. Last stress test was about 5 years ago. Without much change in exercise endurance. On October 17 patient underwent nailing of the left femur. Today-sitting up to chair. Pain control. It started some diet. comfortable. Patient eating up to about 50%. Review of systems: Was done for constitutional, cardiovascular, GI, pulmonary. relevant finding as above Active Medications Acetaminophen (Tylenol Tab) 650 mg PO Q6HR PRN PRN Reason: Mild Pain or Fever > 100.5 Hydrocodone Bitart/Acetaminophen ([place] 5-325) 1 each PO Q4HR PRN PRN Reason: Pain Scale 1 to 5 Last Admin: 10/18/19 23:30 Dose: 1 each Documented by: Hydrocodone Bitart/Acetaminophen ([place] 5-325) 2 each PO Q4HR PRN PRN Reason: Pain Scale 6 to 10 Last Admin: 10/19/19 04:20 Dose: 2 each Documented by: Atorvastatin Calcium (Lipitor) 80 mg PO HS [facility] Last Admin: 10/18/19 21:07 Dose: 80 mg Documented by: Cyanocobalamin (Vitamin B-12) 1,000 mcg PO DAILY [facility] Last Admin: 10/19/19 08:13 Dose: 1,000 mcg Documented by: Enoxaparin Sodium (Lovenox) 40 mg SQ DAILY [facility] Last Admin: 10/19/19 08:13 Dose: 40 mg Documented by: Sodium Chloride (Saline 0.9%) 1,000 mls @ 50 mls/hr IV .Q20H [facility] Last Admin: 10/19/19 18:09 Dose: Not Given Documented by: Ibuprofen (Motrin) 400 mg PO Q6HR PRN PRN Reason: Mild Pain or Fever > 100.5 Ketorolac Tromethamine (Toradol) 15 mg IVP Q6HR PRN PRN Reason: Moderate Pain Stop: 10/23/19 00:16 Last Admin: 10/19/19 11:45 Dose: 15 mg Documented by: Levothyroxine Sodium (Synthroid) 75 mcg PO [id number] [facility] Last Admin: 10/19/19 05:34 Dose: 75 mcg Documented by: Metformin HCl (Glucophage) 1,000 mg PO BID [facility] Last Admin: 10/19/19 08:13 Dose: 1,000 mg Documented by: Morphine Sulfate (Morphine Sulfate (Inj)) 4 mg IV Q4HR PRN PRN Reason: Severe Pain Last Admin: 10/18/19 02:05 Dose: 4 mg Documented by: Naloxone HCl (Narcan) 0.2 mg IV Q2M PRN PRN Reason: Opioid Reversal Naloxone HCl (Narcan) 0.2 mg IV Q2M PRN PRN Reason: Opioid Reversal Non-Formulary Medication (Dulaglutide [Trulicity]) 1.5 mg SQ Q10D [facility] Last Admin: 10/18/19 10:51 Dose: Not Given Documented by: Ondansetron HCl (Zofran) 4 mg IVP Q8HR PRN PRN Reason: Nausea And Vomiting Physical examination: VITAL SIGNS: 98.6, 70, 16, 100/57, 96% room air GENERAL: Sitting up in a chair, comfortable EYES: Pupils equal. Conjunctiva normal. HEENT: External appearance of nose and ears normal, oral cavity grossly normal. NECK: JVD not raised; masses not palpable. HEART: First and second heart sounds are normal; no edema. LUNGS: Respiratory rate normal; decreased breath sounds. ABDOMEN: Soft, nontender, liver spleen not palpable, no masses palpable. PSYCH: Alert and oriented x3; mood and affect normal. MUSCULOSKELETAL: Evidence of severe OA the hands, INVESTIGATIONS, reviewed in the clinical context: White count 6.6 hemoglobin 10 Previous testing White count 10.3 hemoglobin 11.4 platelets 285 potassium 3.9 creatinine 0.75 Chest x-ray film personally reviewed by me-no obvious infiltrates Left hip x-ray-acute nondisplaced ID fractured left femur Assessment: -Acute nondisplaced ID fractured left femur secondary to fall -Diabetes mellitus type 2 and oral hypoglycemic, uncontrolled with hypoglycemia -Hypothyroid -Obstructive sleep apnea -Hyperlipidemia -Primary osteoarthritis Plan: Thank you Dr. Hubbard
[2019-10-19] MEDS: INSULIN ASPART (NovoLOG) 100 UNIT/ML VIAL SQ SCH ×2 (19:27→20:29)
[2019-10-19 20:27] LABS: Glucose,Whole Blood 223 mg/dL (75-99)
[2019-10-19] MEDS: ATORVASTATIN 80 MG TAB PO SCH (20:29)
[2019-10-20 07:20] LABS: Glucose,Whole Blood 186 mg/dL (75-99)
[2019-10-20] MEDS: INSULIN ASPART (NovoLOG) 100 UNIT/ML VIAL SQ SCH ×5 (09:24→23:21)
[2019-10-20] MEDS: KETOROLAC 30 MG/ML 1 ML VIAL IVP PRN ×2 (09:25→17:26)
[2019-10-20] MEDS: CYANOCOBALAMIN 500 MCG TAB PO SCH (09:25)
[2019-10-20] MEDS: metFORMIN 500 MG TAB PO SCH ×2 (09:25→21:00)
[2019-10-20] MEDS: ENOXAPARIN 40 MG/0.4 ML SYRINGE SQ SCH (09:25)
--- NOTE | 2019-10-20 10:44 | P.PN ---
Progress Note - Text Progress Note Date: 10/20/19 Orthopedics: History of present Illness: Patient is very pleasant 83-year-old female who is seen and examined bedside for follow-up evaluation in regards to her left shoulder and left hip. She is status post left hip intramedullary nail fixation for left intertrochanteric hip fracture performed 10/18/2019. Patient is also known to have a left greater tuberosity fracture of the humerus. She continues using a sling for the left upper extremity. She is nonweightbearing with the left upper extremity. She feels her pain is more significant at her left shoulder. She was able to transfer to at bedside chair today and back into bed. She has been able to use a bedside commode. She feels her left hip pain is well-controlled. She has no complaints at the bedside today. She is happy with her progress thus far postoperatively. She has been experiencing increased hypertension with her blood pressure reading was 95/48 last evening. This morning her blood pressure continues to be elevated at 169/71. She has not been seen by medicine this morning. She states she is also has an elevated glucose and has received insulin which has brought her levels back to more normal range. Physical exam: Patient is awake, alert, and oriented 3 Vital signs stable Good chest excursion with deep inspiration and expiration No significant pain with palpation over the surgical sites the left hip Dressings at the left hip and remain dry and intact with 2 small spots of dried blood [place] remain intact underneath the dressing Dorsiflexion and plantar flexion positive sustained left lower extremity Neurovascularly intact bilateral lower extremities Dorsiflexion, plantarflexion, and extensor hallucis longus positive sustained bilaterally Calves are soft and supple; No signs or symptoms of DVT; No calf pain Sling is intact of the left upper extremity Pain with palpation over the left anterior lateral shoulder Inspection of the left shoulder shows no significant erythema, bruising, or swelling No sign of infection of the left shoulder Assessment: Status post left intramedullary nail fixation for intertrochanteric hip fracture Left greater tuberosity fracture of the left humerus Left hip pain Left shoulder pain Status post fall Hypertension Diabetes mellitus Hypothyroidism Sleep apnea Plan: 1. Patient to remain weight-bearing as tolerated on the left lower extremity; patient may work with physical therapy to increase mobility and ambulation 2. Patient will be non-weightbearing with the left upper extremity; continue use sling for the left shoulder for comfort support 3. Keep dressing over the left hip clean, dry, and intact; patient may shower with dressing intact 4. Continue pain control with oral [place] and IV morphine as needed for pain control 5. Continue with anticoagulation therapy with Lovenox 40 mg subcu daily 6. Medicine to continue following the patient for their other medical diagnosisincluding hypertension and diabetes mellitus 7. We'll continue to follow the patient closely; depending on the patient's progress, we may plan for discharge as early as 10/21/2019, to [facility] 8. Patient can follow-up with Dr. Josias Thornton at [facility] in 1-2 weeks following discharge
[2019-10-20 12:19] LABS: Glucose,Whole Blood 164 mg/dL (75-99)
[2019-10-20] MEDS: SODIUM CHLORIDE 0.9% 1,000 ML IV SCH (13:04)
[2019-10-20 17:03] LABS: Glucose,Whole Blood 140 mg/dL (75-99)
[2019-10-20 20:43] LABS: Glucose,Whole Blood 147 mg/dL (75-99)
[2019-10-20] MEDS: ATORVASTATIN 80 MG TAB PO SCH (21:00)
--- NOTE | 2019-10-20 22:32 | P.PN ---
Progress Note - Text Progress Note Date: 10/20/19 Consultation: This is a very pleasant 83-year-old patient of Dr. Kelly. Patient carveout to take the male and she took a fall falling on her left hip. Subsequently had a left hip fracture. Chronic stable medical conditions include diabetes, obstructive sleep apnea, hypothyroid. Patient normally has a good activity. [place] about [place] and emani flight of stairs. No chest pain or shortness breath. Denies any cardiac history. Last stress test was about 5 years ago. Without much change in exercise endurance. On October 17 patient underwent nailing of the left femur. Today-we'll give his physical therapy. Did tolerate some diet. No new issues. Pain control. Review of systems: Was done for constitutional, cardiovascular, GI, pulmonary. relevant finding as above Active Medications Acetaminophen (Tylenol Tab) 650 mg PO Q6HR PRN PRN Reason: Mild Pain or Fever > 100.5 Hydrocodone Bitart/Acetaminophen ([place] 5-325) 1 each PO Q4HR PRN PRN Reason: Pain Scale 1 to 5 Last Admin: 10/18/19 23:30 Dose: 1 each Documented by: Hydrocodone Bitart/Acetaminophen ([place] 5-325) 2 each PO Q4HR PRN PRN Reason: Pain Scale 6 to 10 Last Admin: 10/19/19 04:20 Dose: 2 each Documented by: Atorvastatin Calcium (Lipitor) 80 mg PO HS [facility] Last Admin: 10/20/19 21:00 Dose: 80 mg Documented by: Cyanocobalamin (Vitamin B-12) 1,000 mcg PO DAILY [facility] Last Admin: 10/20/19 09:25 Dose: 1,000 mcg Documented by: Enoxaparin Sodium (Lovenox) 40 mg SQ DAILY [facility] Last Admin: 10/20/19 09:25 Dose: 40 mg Documented by: Sodium Chloride (Saline 0.9%) 1,000 mls @ 50 mls/hr IV .Q20H [facility] Last Admin: 10/20/19 13:04 Dose: 50 mls/hr Documented by: Ibuprofen (Motrin) 400 mg PO Q6HR PRN PRN Reason: Mild Pain or Fever > 100.5 Insulin Aspart (Novolog) 0 unit SQ [facility]; Protocol Last Admin: 10/20/19 21:02 Dose: Not Given Documented by: Ketorolac Tromethamine (Toradol) 15 mg IVP Q6HR PRN PRN Reason: Moderate Pain Stop: 10/23/19 00:16 Last Admin: 10/20/19 17:26 Dose: 15 mg Documented by: Levothyroxine Sodium (Synthroid) 75 mcg PO [id number] [facility] Last Admin: 10/19/19 05:34 Dose: 75 mcg Documented by: Metformin HCl (Glucophage) 1,000 mg PO BID [facility] Last Admin: 10/20/19 21:00 Dose: 1,000 mg Documented by: Morphine Sulfate (Morphine Sulfate (Inj)) 4 mg IV Q4HR PRN PRN Reason: Severe Pain Last Admin: 10/18/19 02:05 Dose: 4 mg Documented by: Naloxone HCl (Narcan) 0.2 mg IV Q2M PRN PRN Reason: Opioid Reversal Naloxone HCl (Narcan) 0.2 mg IV Q2M PRN PRN Reason: Opioid Reversal Non-Formulary Medication (Dulaglutide [Trulicity]) 1.5 mg SQ Q10D [facility] Last Admin: 10/18/19 10:51 Dose: Not Given Documented by: Ondansetron HCl (Zofran) 4 mg IVP Q8HR PRN PRN Reason: Nausea And Vomiting Last Admin: 10/20/19 09:26 Dose: 4 mg Documented by: Physical examination: VITAL SIGNS: 98.3, 94, 18, 108/65, 96% room air GENERAL: Sitting up, comfortable EYES: Pupils equal. Conjunctiva normal. HEENT: External appearance of nose and ears normal, oral cavity grossly normal. NECK: JVD not raised; masses not palpable. HEART: First and second heart sounds are normal; no edema. LUNGS: Respiratory rate normal; decreased breath sounds. ABDOMEN: Soft, nontender, liver spleen not palpable, no masses palpable. PSYCH: Alert and oriented x3; mood and affect normal. MUSCULOSKELETAL: Evidence of severe OA the hands, INVESTIGATIONS, reviewed in the clinical context: White count 6.6 hemoglobin 10 Previous testing White count 10.3 hemoglobin 11.4 platelets 285 potassium 3.9 creatinine 0.75 Chest x-ray film personally reviewed by me-no obvious infiltrates Left hip x-ray-acute nondisplaced ID fractured left femur Assessment: -Acute nondisplaced ID fractured left femur secondary to fall -Diabetes mellitus type 2 and oral hypoglycemic, uncontrolled with hypoglycemia -Hypothyroid -Obstructive sleep apnea -Hyperlipidemia -Primary osteoarthritis Plan: Continue current medication transplant. Care was discussed with the patient. Resume [place] tomorrow morning Thank you Dr. Hubbard
[2019-10-21] MEDS: LEVOTHYROXINE 75 MCG TAB PO SCH (05:31)
[2019-10-21 07:00] LABS: Glucose,Whole Blood 169 mg/dL (75-99)
[2019-10-21 07:17] LABS: Basophils % (A) 0 %; Eosinophils # (A) 0.2 k/uL (0-0.7); Eosinophils % (A) 4 %; HCT 25.8 % (34.0-46.0); Lymphocytes # (A) 0.8 k/uL (1.0-4.8); Lymphocytes % (A) 14 %; MCH 27.8 pg (25.0-35.0); MCHC 32.8 g/dL (31.0-37.0); MCV 84.9 fL (80.0-100.0); Mean Platelet Volume 7.4; Monocytes # (A) 0.3 k/uL (0-1.0); Monocytes % (A) 6 %; Neutrophils % (A) 74 %; Platelet Count 251 k/uL (150-450); RBC 3.04 m/uL (3.80-5.40); WBC 5.4 k/uL (3.8-10.6)
[2019-10-21] MEDS ORDERED: GLIMEPIRIDE 2 MG TAB PO SCH (07:30)
[2019-10-21 07:33] LABS: HGB 8.5 gm/dL (11.4-16.0)
[2019-10-21] MEDS: INSULIN ASPART (NovoLOG) 100 UNIT/ML VIAL SQ SCH ×2 (08:00→12:27)
--- NOTE | 2019-10-21 09:01 | P.DS ---
<Jazmine Donovan - Last Filed: 10/21/19 08:58> Providers Expected date of discharge: 10/21/19 - Discharge Diagnosis(es) (1) Fall Status: Acute (2) Diabetes mellitus Status: Acute (3) Hypothyroidism Status: Acute (4) Sleep apnea Status: Acute (5) Humerus fracture Status: Acute (6) Intertrochanteric fracture of left hip Status: Acute Hospital Course: This is an 83] year old female who presented to the hospital post fall at home and sustained a left hip fracture and a left humerus greater tuberosity fracture. The patient was cleared by medicine for surgery. The patient underwent an IT nail on 10/18/[address] Thornton. The procedure was performed without complication or sequelae. The patient is doing well postoperatively. Labs and vital signs are stable on the day of discharge. On the day of discharge the patient's hip incision is healing well. There is minimal erythema. There is no drainage noted at this time. There is minimal soft tissue swelling to the hip and thigh. The patient has full foot and ankle motion without difficulty or pain. Neurovascular status to the left lower extremity is intact. Left upper extremity is in sling. Mild pain to palpation to the proximal humerus. Neurovascular intact. The patient is discharged to skilled rehab in good condition. See medication reconciliation for accurate list of discharge medications Pertinent Studies: Laboratory Tests 10/21/19 10/21/19 06:28 06:58 WBC 5.4 RBC 3.04 L Hgb 8.5 L D Hct 25.8 L Lymphocytes # 0.8 L POC Glucose (mg/dL) 169 H Patient Condition at Discharge: Stable Plan - Discharge Summary New Discharge Prescriptions: New Aspirin 325 mg PO BID #60 tab HYDROcodone/APAP 5-325MG [[place] 5] 1 - 2 each PO Q4-6H PRN #40 tab PRN Reason: Pain Sennosides-Docusate Sodium [Senokot-S] 2 tab PO DAILY #30 tablet Heparin Sodium,Porcine [Heparin Sodium] 5,000 unit SQ Q12HR #28 vial INSULIN ASPART (NovoLOG) [NovoLOG (formulary)] 0 unit SQ ACHS vial Acetaminophen Tab [Tylenol] 650 mg PO Q6HR PRN tab PRN Reason: Mild Pain Or Fever > 100.5 Continue metFORMIN HCL 1,000 mg PO BID Levothyroxine Sodium [Synthroid] 75 mcg PO MOTUWETHFRSA Glimepiride [Amaryl] 2 mg PO DAILY Dulaglutide [Trulicity] 1.5 mg SQ Q10D Ergocalciferol [Vitamin D2 (DRISDOL)] 50,000 unit PO Q14D Cholecalciferol [Vitamin D3 (25 Mcg = 1000 Iu)] 2,000 unit PO DAILY Rosuvastatin Calcium [Crestor] 40 mg PO HS [place]-3 Fatty Acids/Fish Oil [[place]-3 Fish Oil 1,200 mg Sfgl] 1 cap PO DAILY Vitamin B-12 1000mcg Sl Tab 1,000 mcg SL DAILY Discontinued Aspirin [Adult Low Dose Aspirin EC] 81 mg PO HS Discharge Medication List Dulaglutide [Trulicity] 1.5 mg SQ Q10D 10/05/16 [History] Glimepiride [Amaryl] 2 mg PO DAILY 10/05/16 [History] Levothyroxine Sodium [Synthroid] 75 mcg PO MOTUWETHFRSA 10/05/16 [History] metFORMIN HCL 1,000 mg PO BID 10/05/16 [History] Cholecalciferol [Vitamin D3 (25 Mcg = 1000 Iu)] 2,000 unit PO DAILY 03/09/17 [History] Ergocalciferol [Vitamin D2 (DRISDOL)] 50,000 unit PO Q14D 03/09/17 [History] Rosuvastatin Calcium [Crestor] 40 mg PO HS 12/11/17 [History] [place]-3 Fatty Acids/Fish Oil [[place]-3 Fish Oil 1,200 mg Sfgl] 1 cap PO DAILY 10/17/19 [History] Vitamin B-12 1000mcg Sl Tab 1,000 mcg SL DAILY 10/17/19 [History] Acetaminophen Tab [Tylenol] 650 mg PO Q6HR PRN tab 10/21/19 [Rx] Aspirin 325 mg PO BID #60 tab 10/21/19 [Rx] HYDROcodone/APAP 5-325MG [[place] 5] 1 - 2 each PO Q4-6H PRN #40 tab 10/21/19 [Rx] Heparin Sodium,Porcine [Heparin Sodium] 5,000 unit SQ Q12HR #28 vial 10/21/19 [Rx] INSULIN ASPART (NovoLOG) [NovoLOG (formulary)] 0 unit SQ ACHS vial 10/21/19 [Rx] Sennosides-Docusate Sodium [Senokot-S] 2 tab PO DAILY #30 tablet 10/21/19 [Rx] Follow up Appointment(s)/Referral(s): Soren Kelly DO [Primary Care Provider] - 1-2 days Josias Thornton DO [Medical Doctor] - 2 Weeks Activity/Diet/Wound Care/Special Instructions: Ok to shower. Do not soak or immerse incision. No lotions or ointments on incision. Change dressing daily and as needed. Ok to leave incisions open to the air if not draining. [place] to be removed in office. PT - WBAT to left lower extremity with walker and assistance. Nonweightbearing on the left upper extremity. Daily pendulums for the left shoulder. Do NOT use sling in bed or at rest. May be used while ambulating (at patient request) but not required. Use pain medication as directed. Continue LMWH for 2 weeks then change to ASA 325mg PO BID Follow up outpatient with Dr. Thornton in 2 weeks -- call for appointment. Call [facility] with questions or concerns. Discharge Disposition: TRANSFER TO SNF/ECF <Josias Thornton - Last Filed: 10/21/19 17:21> Providers Date of admission: 10/18/19 00:19 Attending physician: Josias Thornton DO Consults: 10/18/19 08:28 Consult Physician Stat Consulting Provider: Soren Kelly Consult Reason/Comments: surgical clearance and medical management Do you want consulting provider notified?: Yes Primary care physician: Soren Kelly
[2019-10-21] MEDS: metFORMIN 500 MG TAB PO SCH (09:17)
[2019-10-21] MEDS: CYANOCOBALAMIN 500 MCG TAB PO SCH (09:18)
[2019-10-21] MEDS: ENOXAPARIN 40 MG/0.4 ML SYRINGE SQ SCH (09:19)
[2019-10-21 11:27] LABS: Glucose,Whole Blood 113 mg/dL (75-99)
[2019-10-21] MEDS: SODIUM CHLORIDE 0.9% 1,000 ML IV SCH (12:23)
[2019-10-21 13:47] VITALS: BP 143/63; PULSE 86; RESP 16; TEMP 98.6
--- NOTE | 2019-10-21 22:34 | P.PN ---
Progress Note - Text Progress Note Date: 10/21/19 Consultation: This is a very pleasant 83-year-old patient of Dr. Kelly. Patient carveout to take the male and she took a fall falling on her left hip. Subsequently had a left hip fracture. Chronic stable medical conditions include diabetes, obstructive sleep apnea, hypothyroid. Patient normally has a good activity. [place] about [place] and emani flight of stairs. No chest pain or shortness breath. Denies any cardiac history. Last stress test was about 5 years ago. Without much change in exercise endurance. On October 17 patient underwent nailing of the left femur. Today-feeling much better. Did local therapy. Pain better controlled. Tolerating a diet. present. Review of systems: Was done for constitutional, cardiovascular, GI, pulmonary. relevant finding as above Current medications reviewed in today's electronic records Physical examination: VITAL SIGNS: 98, 73, 18, 158/57, 97% GENERAL: Sitting up, comfortable EYES: Pupils equal. Conjunctiva normal. HEENT: External appearance of nose and ears normal, oral cavity grossly normal. NECK: JVD not raised; masses not palpable. HEART: First and second heart sounds are normal; no edema. LUNGS: Respiratory rate normal; decreased breath sounds. ABDOMEN: Soft, nontender, liver spleen not palpable, no masses palpable. PSYCH: Alert and oriented x3; mood and affect normal. MUSCULOSKELETAL: Evidence of severe OA the hands, INVESTIGATIONS, reviewed in the clinical context: White count 5.4 hemoglobin 8.5 Previous testing White count 10.3 hemoglobin 11.4 platelets 285 potassium 3.9 creatinine 0.75 Chest x-ray film personally reviewed by me-no obvious infiltrates Left hip x-ray-acute nondisplaced ID fractured left femur Assessment: -Acute nondisplaced ID fractured left femur secondary to fall -Diabetes mellitus type 2 and oral hypoglycemic, uncontrolled with hypoglycemia -Hypothyroid -Obstructive sleep apnea -Hyperlipidemia -Primary osteoarthritis -Acute blood loss anemia post procedure expected from surgery Plan: Care was discussed with the patient and the . Going to rehab today. Thank you Dr. Hubbard
== END 2019-10-21 14:51 | DRG 481 ==
LOC: EC 22:19 → 5NMEDONC 10-18 00:19
PROVIDERS: ADMIT Orthopaedic Surgery; ATTEND Orthopaedic Surgery
PROC: 0QS734Z Reposition Left Upper Femur with Internal Fixation Device, Percutaneous Approach (ICD-10-PCS; principal; 2019-10-18 08:45)
DX: S72.142A Displaced intertrochanteric fracture of left femur, initial encounter for closed fracture (principal); S42.255A Nondisplaced fracture of greater tuberosity of left humerus, initial encounter for closed fracture; D62 Acute posthemorrhagic anemia; G47.33 Obstructive sleep apnea (adult) (pediatric); E03.9 Hypothyroidism, unspecified; E78.5 Hyperlipidemia, unspecified; I10 Essential (primary) hypertension; M19.91 Primary osteoarthritis, unspecified site; E11.649 Type 2 diabetes mellitus with hypoglycemia without coma; Z11.59 Encounter for screening for other viral diseases; W01.0XXA Fall on same level from slipping, tripping and stumbling without subsequent striking against object, initial encounter; Y92.009 Unspecified place in unspecified non-institutional (private) residence as the place of occurrence of the external cause; Z79.84 Long term (current) use of oral hypoglycemic drugs; Z79.82 Long term (current) use of aspirin; Z79.890 Hormone replacement therapy; Z91.011 Allergy to milk products; Z90.710 Acquired absence of both cervix and uterus; Z87.891 Personal history of nicotine dependence; Z87.81 Personal history of (healed) traumatic fracture
CPT/HCPCS: 36415; 71045; 73501; 73502; 80053; 85025; 85610; 85730; 96374; 99285

== ENCOUNTER 2019-10-31 17:22 | Inpatient (IN) | payer MEDICARE, OTHER ==
--- NOTE | 2019-10-31 17:50 | ED ---
Recheck HPI - General Chief Complaint: Recheck/Abnormal Lab/Rx Stated Complaint: Low Hemoglobin Time Seen by Provider: 10/31/19 17:40 Source: patient Mode of arrival: ambulatory Limitations: no limitations - History of Present Illness Initial Comments: Patient is a 83-year-old female with recent left hip surgery presenting to the emergency department with chief complaint of low hemoglobin. Patient reports she is currently at [facility] for physical rehab. Patient states she had laboratory work done at the facility that revealed low hemoglobin levels. Patient reports she's been taking narcotics for pain along with iron supplements. She is also taking MiraLAX and stool softeners but reports having being impacted and not having bowel movements. She still able to pass gas. Patient reports she has noticed black stools over the last several days. She denies any abdominal pain nausea vomiting. Denies any chest pain or shortness of breath. - Related Data Home Medications Medication Instructions Recorded Confirmed Dulaglutide [Trulicity] 1.5 mg SQ Q10D@0800 10/05/16 10/31/19 Glimepiride [Amaryl] 2 mg PO DAILY@0800 10/05/16 10/31/19 Levothyroxine Sodium [Synthroid] 75 mcg PO MOTUWETHFRSA@0600 10/05/16 10/31/19 Cholecalciferol [Vitamin D3 (25 2,000 unit PO DAILY@1700 03/09/17 10/31/19 Mcg = 1000 Iu)] Ergocalciferol [Vitamin D2 50,000 unit PO Q14D@1700 03/09/17 10/31/19 (DRISDOL)] Rosuvastatin Calcium [Crestor] 40 mg PO HS@2100 12/11/17 10/31/19 [place]-3 Fatty Acids/Fish Oil 1 cap PO DAILY@1700 10/17/19 10/31/19 [[place]-3 Fish Oil 1,200 mg Sfgl] ALPRAZolam [Xanax] 0.25 mg PO HS PRN 10/31/19 10/31/19 Aspirin 325 mg PO Q12H 10/31/19 10/31/19 Cyanocobalamin [Vitamin B-12] 1,000 mcg PO DAILY@0800 10/31/19 10/31/19 Ferrous Sulfate [Feosol] 325 mg PO TID@0800,1200,1700 10/31/19 10/31/19 Gabapentin [Neurontin] 100 mg PO BID@0800,1700 10/31/19 10/31/19 Glucerna Shake 120 ml PO BID@0800,1200 10/31/19 10/31/19 HYDROcodone/APAP 5-325MG [[place] 5] 1 - 2 tab PO Q4-6H PRN 10/31/19 10/31/19 INSULIN ASPART (NovoLOG) [NovoLOG See Protocol SQ ACHS 10/31/19 10/31/19 (formulary)] Magnesium Hydroxide [Milk of 7,200 mg PO Q48H PRN 10/31/19 10/31/19 Magnesia Concentrate] Melatonin 1 mg PO HS@2100 10/31/19 10/31/19 Na Phos,M-B/Na Phos,Di-Ba [Fleet 133 ml RECTAL DAILY PRN 10/31/19 10/31/19 Adult] Sennosides-Docusate Sodium 2 tab PO DAILY@0800 10/31/19 10/31/19 [Senokot-S] bisacodyL [Bisacodyl] 10 mg RECTAL DAILY PRN 10/31/19 10/31/19 polyethylene glycoL 3350 [Miralax] 17 gm PO DAILY@1700 10/31/19 10/31/19 Previous Rx's Medication Instructions Recorded Acetaminophen Tab [Tylenol] 650 mg PO Q6HR PRN tab 10/21/19 Heparin Sodium,Porcine [Heparin 5,000 unit SQ Q12HR #28 vial 10/21/19 Sodium] Allergies Allergy/AdvReac Type Severity Reaction Status Date / Time milk AdvReac Diarrhea Verified 10/31/19 17:52 Review of Systems ROS Statement: Those systems with pertinent positive or pertinent negative responses have been documented in the HPI. ROS Other: All systems not noted in ROS Statement are negative. Past Medical History Past Medical History: Diabetes Mellitus, Sleep Apnea/CPAP/BIPAP, Thyroid Disorder History of Any Multi-Drug Resistant Organisms: None Reported Past Surgical History: Hysterectomy, Orthopedic Surgery Past Anesthesia/Blood Transfusion Reactions: No Reported Reaction Past Psychological History: No Psychological Hx Reported Smoking Status: Former smoker Past Alcohol Use History: Occasional Past Drug Use History: None Reported - Past Family History Father Family Medical History: No Reported History General Exam Limitations: no limitations General appearance: alert, in no apparent distress Head exam: Present: atraumatic, normocephalic, normal inspection Eye exam: Present: normal appearance, PERRL, EOMI, other (Conjunctiva pale) Pupils: Present: normal accommodation ENT exam: Present: normal exam, normal oropharynx, mucous membranes moist Neck exam: Present: normal inspection, full ROM. Absent: tenderness Respiratory exam: Present: normal lung sounds bilaterally. Absent: respiratory distress, wheezes Cardiovascular Exam: Present: regular rate, normal rhythm, normal heart sounds GI/Abdominal exam: Present: soft. Absent: distended, tenderness Rectal exam: Present: black stool. Absent: normal inspection (Residual stool) Extremities exam: Present: normal inspection ([place] in the left hip from recent surgery.), full ROM, tenderness (Tenderness over the left hip. Left shoulder surgery as well.), normal capillary refill, other Back exam: Present: normal inspection, full ROM. Absent: CVA tenderness (R), CVA tenderness (L) Neurological exam: Present: alert, oriented X3 Psychiatric exam: Present: normal affect, normal mood Skin exam: Present: warm, dry, intact, normal color Course Vital Signs 10/31/19 10/31/19 17:30 19:02 Temperature 99.1 F Pulse Rate 70 80 Respiratory 18 18 Rate Blood Pressure 152/73 166/73 O2 Sat by Pulse 98 98 Oximetry Medical Decision Making - Medical Decision Making Patient is an 83-year-old female presenting to the emergency department with a chief complaint of low hemoglobin. On exam patient has no abdominal pain she does have a recovering surgery on the left hip. Hemoglobin is 7.1 although she appears to be anemic at baseline. Occult stool was positive. She does have poor renal function with elevated BUN and creatinine. Type and screen pending. Patient will be admitted for a GI bleed. Case discussed with Dr. Rowland. Admitting physician is Dr.Nerusu SERVIN on consult - Lab Data Result diagrams: 10/31/19 18:02 10/31/19 17:54 Lab Results 10/31/19 10/31/19 10/31/19 Range/Units 17:54 18:02 18:02 WBC 11.1 H (3.8-10.6) k/uL RBC 2.55 L (3.80-5.40) m/uL Hgb 7.1 L (11.4-16.0) gm/dL Hct 22.2 L (34.0-46.0) % MCV 86.8 (80.0-100.0) fL MCH 27.8 (25.0-35.0) pg MCHC 32.0 (31.0-37.0) g/dL RDW 15.3 (11.5-15.5) % Plt Count 680 H (150-450) k/uL Neutrophils % 81 % Lymphocytes % 12 % Monocytes % 4 % Eosinophils % 2 % Basophils % 0 % Neutrophils # 9.0 H (1.3-7.7) k/uL Lymphocytes # 1.4 (1.0-4.8) k/uL Monocytes # 0.4 (0-1.0) k/uL Eosinophils # 0.2 (0-0.7) k/uL Basophils # 0.0 (0-0.2) k/uL Hypochromasia Slight APTT 24.0 (22.0-30.0) sec Sodium 134 L (137-145) mmol/L Potassium 4.9 (3.5-5.1) mmol/L Chloride 102 (98-107) mmol/L Carbon Dioxide 26 (22-30) mmol/L Anion Gap 6 mmol/L BUN 22 H (7-17) mg/dL Creatinine 1.46 H (0.52-1.04) mg/dL Est GFR (CKD-EPI)AfAm 38 (>60 ml/min/1.73 sqM) Est GFR (CKD-EPI)NonAf 33 (>60 ml/min/1.73 sqM) Glucose 172 H (74-99) mg/dL Plasma Lactic Acid [place] (0.7-2.0) mmol/L Calcium 8.7 (8.4-10.2) mg/dL Magnesium 2.4 H (1.6-2.3) mg/dL Total Bilirubin 0.4 (0.2-1.3) mg/dL AST 33 (14-36) U/L ALT 21 (4-34) U/L Alkaline Phosphatase 84 (38-126) U/L Troponin I (0.000-0.034) ng/mL Total Protein 5.5 L (6.3-8.2) g/dL Albumin 3.2 L (3.5-5.0) g/dL Stool Occult Blood (Negative) 10/31/19 10/31/19 10/31/19 Range/Units 18:02 18:02 18:02 WBC (3.8-10.6) k/uL RBC (3.80-5.40) m/uL Hgb (11.4-16.0) gm/dL Hct (34.0-46.0) % MCV (80.0-100.0) fL MCH (25.0-35.0) pg MCHC (31.0-37.0) g/dL RDW (11.5-15.5) % Plt Count (150-450) k/uL Neutrophils % % Lymphocytes % % Monocytes % % Eosinophils % % Basophils % % Neutrophils # (1.3-7.7) k/uL Lymphocytes # (1.0-4.8) k/uL Monocytes # (0-1.0) k/uL Eosinophils # (0-0.7) k/uL Basophils # (0-0.2) k/uL Hypochromasia APTT (22.0-30.0) sec Sodium (137-145) mmol/L Potassium (3.5-5.1) mmol/L Chloride (98-107) mmol/L Carbon Dioxide (22-30) mmol/L Anion Gap mmol/L BUN (7-17) mg/dL Creatinine (0.52-1.04) mg/dL Est GFR (CKD-EPI)AfAm (>60 ml/min/1.73 sqM) Est GFR (CKD-EPI)NonAf (>60 ml/min/1.73 sqM) Glucose (74-99) mg/dL Plasma Lactic Acid [place] 1.2 (0.7-2.0) mmol/L Calcium (8.4-10.2) mg/dL Magnesium (1.6-2.3) mg/dL Total Bilirubin (0.2-1.3) mg/dL AST (14-36) U/L ALT (4-34) U/L Alkaline Phosphatase (38-126) U/L Troponin I <0.012 (0.000-0.034) ng/mL Total Protein (6.3-8.2) g/dL Albumin (3.5-5.0) g/dL Stool Occult Blood Positive H (Negative) - EKG Data EKG Comments: Sinus rhythm Ventricular rate 77, RI 160, QRS 82, QTC 411. Disposition Clinical Impression: GI bleed, Anemia Disposition: ADMITTED IP TO THIS HOSP Condition: Good Additional Instructions: She will be admitted Is patient prescribed a controlled substance at d/c from ED?: No Referrals: Soren Kelly DO [Primary Care Provider] - 1-2 days Time of Disposition: 19:21
[2019-10-31 18:26] LABS: Basophils % (A) 0 %; Eosinophils # (A) 0.2 k/uL (0-0.7); Eosinophils % (A) 2 %; HCT 22.2 % (34.0-46.0); HGB 7.1 gm/dL (11.4-16.0); Hypochromasia Slight; Lymphocytes # (A) 1.4 k/uL (1.0-4.8); Lymphocytes % (A) 12 %; MCH 27.8 pg (25.0-35.0); MCV 86.8 fL (80.0-100.0); Mean Platelet Volume 7.8; Monocytes # (A) 0.4 k/uL (0-1.0); Monocytes % (A) 4 %; Neutrophils % (A) 81 %; Platelet Count 680 k/uL (150-450); RBC 2.55 m/uL (3.80-5.40); RDW 15.3 % (11.5-15.5); WBC 11.1 k/uL (3.8-10.6)
[2019-10-31 18:49] LABS: Albumin 3.2 g/dL (3.5-5.0); Calcium 8.7 mg/dL (8.4-10.2); Magnesium 2.4 mg/dL (1.6-2.3); Potassium 4.9 mmol/L (3.5-5.1); Total Bilirubin 0.4 mg/dL (0.2-1.3); Total Protein 5.5 g/dL (6.3-8.2)
[2019-10-31] MEDS ORDERED: HYDROmorphone 0.5 MG/0.5 ML SYRINGE IVP PRN (19:18)
[2019-10-31] MEDS ORDERED: NALOXONE 0.4 MG/ML 1 ML VIAL IV PRN (19:18)
[2019-10-31] MEDS ORDERED: LORazepam 2 MG/ML INJ IV PRN (19:18)
[2019-10-31] MEDS: SODIUM CHLORIDE 0.9% 1,000 ML IV SCH (20:03)
[2019-11-01] MEDS: ACETAMINOPHEN TAB 325 MG TAB PO PRN ×2 (01:22→12:33)
[2019-11-01 04:27] LABS: Appearance,Urine Clear (Clear); Bacteria,Urine Rare /hpf; Bilirubin,Urine Negative (Negative); Blood,Urine Moderate (Negative); Color,Urine Light Yellow; Glucose,Urine (UA) Negative (Negative); Ketones,Urine Negative (Negative); Leukocyte Esterase,Urine Moderate (Negative); Nitrite,Urine Negative (Negative); PH, Urine 6.5 (5.0-8.0); Protein,Urine Negative (Negative); RBC,Urine 1 /hpf (0-5); Specific Gravity,Urine 1.007 (1.001-1.035); Squamous Epithelial Cell,Urine <1 /hpf (0-4); Urobilinogen,Urine <2.0 mg/dL (<2.0); WBC,Urine 5 /hpf (0-5)
[2019-11-01] MEDS: PANTOPRAZOLE 40 MG/10 ML VIAL IVP SCH (10:39)
[2019-11-01] MEDS: SODIUM CHLORIDE 0.9% 1,000 ML IV SCH ×2 (10:42→17:31)
--- NOTE | 2019-11-01 11:52 | P.HPIM ---
History of Present Illness This is a pleasant 83 years old female with past medical history of diabetes mellitus, hypothyroidism, sleep apnea on CPAP/BiPAP. Her PCP is Dr. Kelly She was recently admitted on 10/17-10/20 for fall and left humerus and left hip f racture status post IT nail placement on 10/17 by orthopedic team by Dr. Thornton. And she was discharged to rehab with no complications. On discharge day her hemoglobin was 8.5, however at rehab patient was noticed to have low hemoglobin at 7 with black tarry stool so [facility]. Patient denies any abdominal pain or chest pain or dyspnea. No change in urine or bowel habits except for the black stool. No headache or dizziness. However patient states for the last 5-6 days she was unable to move because of worsening pain in her left leg, as one of the Aides did not help her right and she has some twisting and her left leg. However There are there is no erythema, tenderness or deformity vitals stable. Positive BLOOD in stools. Hemoglobin 7.1, WBCs is 11.1, creatinine 1.4, baseline is 0.6-0.75 Review of Systems CONSTITUTIONAL: No fever, no malaise, no fatigue. HEENT: No recent visual problems or hearing problems. Denied any sore throat. CARDIOVASCULAR: No orthopnea, PND, no palpitations, no syncope. PULMONARY: No shortness of breath, no cough, no hemoptysis. GASTROINTESTINAL: No diarrhea, no nausea, no vomiting, no abdominal pain. Normoactive bowel sounds. NEUROLOGICAL: No headaches, no weakness, no numbness. HEMATOLOGICAL: Denies any bleeding or petechiae. GENITOURINARY: Denies any burning micturition, frequency, or urgency. MUSCULOSKELETAL/RHEUMATOLOGICAL: Denies any joint pain, swelling, or any muscle pain. ENDOCRINE: Denies any polyuria or polydipsia. Past Medical History Past Medical History: Diabetes Mellitus, Sleep Apnea/CPAP/BIPAP, Thyroid Disorder History of Any Multi-Drug Resistant Organisms: None Reported Past Surgical History: Hysterectomy, Orthopedic Surgery Past Anesthesia/Blood Transfusion Reactions: No Reported Reaction Past Psychological History: No Psychological Hx Reported Smoking Status: Current some day smoker Past Alcohol Use History: Occasional Past Drug Use History: None Reported - Past Family History Father Family Medical History: No Reported History Medications and Allergies Home Medications Medication Instructions Recorded Confirmed Type Dulaglutide [Trulicity] 1.5 mg SQ Q10D@0800 10/05/16 10/31/19 History Glimepiride [Amaryl] 2 mg PO DAILY@0800 10/05/16 10/31/19 History Levothyroxine Sodium [Synthroid] 75 mcg PO MOTUWETHFRSA@0600 10/05/16 10/31/19 History Cholecalciferol [Vitamin D3 (25 2,000 unit PO DAILY@1700 03/09/17 10/31/19 History Mcg = 1000 Iu)] Ergocalciferol [Vitamin D2 50,000 unit PO Q14D@1700 03/09/17 10/31/19 History (DRISDOL)] Rosuvastatin Calcium [Crestor] 40 mg PO HS@2100 12/11/17 10/31/19 History [place]-3 Fatty Acids/Fish Oil 1 cap PO DAILY@1700 10/17/19 10/31/19 History [[place]-3 Fish Oil 1,200 mg Sfgl] Acetaminophen Tab [Tylenol] 650 mg PO Q6HR PRN tab 10/21/19 10/31/19 Rx Heparin Sodium,Porcine [Heparin 5,000 unit SQ Q12HR #28 vial 10/21/19 10/31/19 Rx Sodium] ALPRAZolam [Xanax] 0.25 mg PO HS PRN 10/31/19 10/31/19 History Aspirin 325 mg PO Q12H 10/31/19 10/31/19 History Cyanocobalamin [Vitamin B-12] 1,000 mcg PO DAILY@0810/31/19 10/31/19 History Ferrous Sulfate [Feosol] 325 mg PO TID@0800,1200,1700 10/31/19 10/31/19 History Gabapentin [Neurontin] 100 mg PO BID@0800,1700 10/31/19 10/31/19 History Glucerna Shake 120 ml PO BID@0800,1200 10/31/19 10/31/19 History HYDROcodone/APAP 5-325MG [[place] 5] 1 - 2 tab PO Q4-6H PRN 10/31/19 10/31/19 History INSULIN ASPART (NovoLOG) [NovoLOG See Protocol SQ ACHS 10/31/19 10/31/19 History (formulary)] Magnesium Hydroxide [Milk of 7,200 mg PO Q48H PRN 10/31/19 10/31/19 History Magnesia Concentrate] Melatonin 1 mg PO HS@2100 10/31/19 10/31/19 History Na Phos,M-B/Na Phos,Di-Ba [Fleet 133 ml RECTAL DAILY PRN 10/31/19 10/31/19 History Adult] Sennosides-Docusate Sodium 2 tab PO DAILY@0800 10/31/19 10/31/19 History [Senokot-S] bisacodyL [Bisacodyl] 10 mg RECTAL DAILY PRN 10/31/19 10/31/19 History polyethylene glycoL 3350 [Miralax] 17 gm PO DAILY@1700 10/31/19 10/31/19 History Allergies Allergy/AdvReac Type Severity Reaction Status Date / Time milk AdvReac Diarrhea Verified 10/31/19 17:52 Physical Exam Vitals: Vital Signs Temp Pulse Pulse Resp BP BP Pulse Ox 11/01/19 11:13 98.3 F 70 18 161/67 95 11/01/19 04:46 97.9 F 70 18 146/69 98 10/31/19 21:17 99.4 F 86 18 164/70 98 10/31/19 20:08 98.3 F 94 16 157/87 98 10/31/19 19:02 80 18 166/73 98 10/31/19 17:30 99.1 F 70 18 152/73 98 Intake and Output 10/31/19 11/01/19 11/01/19 22:59 06:59 14:59 Other: Voiding Method Bedpan Bedpan # Voids 1 2 1 Weight 51.71 kg GENERAL: The patient is alert and oriented x3, not in any acute distress. Well developed, well nourished. HEENT: Pupils are round and equally reacting to light. EOMI. No scleral icterus. No conjunctival pallor. Normocephalic, atraumatic. No pharyngeal erythema. No thyromegaly. CARDIOVASCULAR: S1 and S2 present. No murmurs, rubs, or gallops. PULMONARY: Chest is clear to auscultation, no wheezing or crackles. ABDOMEN: Soft, nontender, nondistended, normoactive bowel sounds. No palpable organomegaly. -MUSCULOSKELETAL: No joint swelling or deformity. Left hip wound is closed and clean, left humerus wound is closed and clean, sling is in place EXTREMITIES: No cyanosis, clubbing, or pedal edema. NEUROLOGICAL: Gross neurological examination did not reveal any focal deficits. SKIN: No rashes. No petechiae Results CBC & Chem 7: 10/31/19 18:02 10/31/19 17:54 Labs: Abnormal Lab Results - Last 24 Hours (Table) 10/31/19 10/31/19 10/31/19 Range/Units 17:54 18:02 18:02 WBC 11.1 H (3.8-10.6) k/uL RBC 2.55 L (3.80-5.40) m/uL Hgb 7.1 L (11.4-16.0) gm/dL Hct 22.2 L (34.0-46.0) % Plt Count 680 H (150-450) k/uL Neutrophils # 9.0 H (1.3-7.7) k/uL Sodium 134 L (137-145) mmol/L BUN 22 H (7-17) mg/dL Creatinine 1.46 H (0.52-1.04) mg/dL Glucose 172 H (74-99) mg/dL Magnesium 2.4 H (1.6-2.3) mg/dL Total Protein 5.5 L (6.3-8.2) g/dL Albumin 3.2 L (3.5-5.0) g/dL Urine Blood (Negative) Ur Leukocyte Esterase (Negative) Urine Bacteria (None) /hpf Stool Occult Blood Positive H (Negative) 11/01/19 Range/Units 04:13 WBC (3.8-10.6) k/uL RBC (3.80-5.40) m/uL Hgb (11.4-16.0) gm/dL Hct (34.0-46.0) % Plt Count (150-450) k/uL Neutrophils # (1.3-7.7) k/uL Sodium (137-145) mmol/L BUN (7-17) mg/dL Creatinine (0.52-1.04) mg/dL Glucose (74-99) mg/dL Magnesium (1.6-2.3) mg/dL Total Protein (6.3-8.2) g/dL Albumin (3.5-5.0) g/dL Urine Blood Moderate H (Negative) Ur Leukocyte Esterase Moderate H (Negative) Urine Bacteria Rare H (None) /hpf Stool Occult Blood (Negative) Thrombosis Risk Factor Assmnt - Choose All That Apply Any of the Below Risk Factors Present?: Yes Each Factor Represents 1 point: History of prior major surgery (<1month) Other Risk Factors: Yes Each Risk Factor Represents 2 Points: Patient confined to bed Each Risk Factor Represents 3 Points: Age 75 years or older Other congenital or acquired thrombophilia - If yes, enter type in comment: No Each Risk Factor Represents 5 Points: Hip, pelvis, or leg fracture (< 1 month) Thrombosis Risk Factor Assessment Total Risk Factor Score: 11 Thrombosis Risk Factor Assessment Level: High Risk Assessment and Plan Assessment: Severe anemia with positive occult blood in the stool, rule out GI bleed Acute blood loss anemia Acute kidney injury acute urinary tract infection Recent fall and left humerus and left hip fracture status post IT nail placement on 10/17 by orthopedic team by Dr. Thornton. With recent worsening of her left leg pain at rehab after twisting her leg Diabetes mellitus Hypothyroidism Sleep apnea on CPAP/BiPAP Plan: This is a pleasant 83 years old female who presents with GI bleed and recent left humerus/hip fracture status post IT nail. Hold anticoagulants tilted by GI team. Continue with Protonix. GI and orthopedic consult. Keep monitoring hemoglobin and transfuse blood more drop in hemoglobin. Continue with IV fluids and monitor creatinine. Start Rocephin and follow-up urine culture Labs and medication were reviewed.. Continue same treatment. Continue with symptomatic treatment. Resume home medication. Monitor lytes and vitals. DVT and GI prophylaxis. Further recommendations of the clinical course of the patient DVT prophylaxis: no Subcutaneous heparin in view of possible GI bleed GI Prophylaxis: Ppi PT/OT: Pending Prognosis is guarded
[2019-11-01 12:30] LABS: Basophils % (A) 0 %; Eosinophils # (A) 0.2 k/uL (0-0.7); Eosinophils % (A) 2 %; HCT 23.5 % (34.0-46.0); HGB 7.4 gm/dL (11.4-16.0); Lymphocytes % (A) 10 %; MCH 27.4 pg (25.0-35.0); MCHC 31.7 g/dL (31.0-37.0); MCV 86.4 fL (80.0-100.0); Mean Platelet Volume 8.1; Monocytes # (A) 0.4 k/uL (0-1.0); Monocytes % (A) 4 %; Neutrophils # (A) 8.4 k/uL (1.3-7.7); Neutrophils % (A) 84 %; Platelet Count 690 k/uL (150-450); RBC 2.71 m/uL (3.80-5.40); RDW 15.5 % (11.5-15.5)
[2019-11-01] MEDS: FERROUS SULFATE 325 MG TAB PO SCH ×2 (12:32→15:57)
[2019-11-01] MEDS: INSULIN ASPART (NovoLOG) 100 UNIT/ML VIAL SQ SCH ×2 (12:42→17:31)
[2019-11-01 12:44] LABS: Glucose,Whole Blood 148 mg/dL (75-99)
[2019-11-01 12:50] LABS: Calcium 8.4 mg/dL (8.4-10.2); Potassium 4.5 mmol/L (3.5-5.1)
--- NOTE | 2019-11-01 13:17 | XR ---
EXAMINATION TYPE: XR shoulder limited LT DATE OF EXAM: 11/01/2019 CLINICAL HISTORY: Follow-up fracture. Fall 2 weeks ago. TECHNIQUE: Single AP views of the left shoulder are obtained. COMPARISON: Left shoulder radiograph 10/17/2019 FINDINGS: There is redemonstrated cortical irregularity of the greater tuberosity, consistent with k nown nondisplaced fracture demonstrated on 10/17/2019 comparison, with mild interval periosteal reacti on. No evidence of new fracture within limits of single view. Degenerative changes of the glenohumera l and acromioclavicular joints. The visualized ribs are intact and unremarkable. IMPRESSION: Nondisplaced fracture of the humeral greater tuberosity demonstrates mild evidence of int erval healing versus 10/17/2019.
--- NOTE | 2019-11-01 13:20 | XR ---
EXAMINATION TYPE: XR Hip Limited LT DATE OF EXAM: 11/01/2019 CLINICAL HISTORY: Left hip fracture, status post surgery TECHNIQUE: Single AP portable view of left hip is obtained. COMPARISON: Left hip postoperative radiograph 10/18/2019 FINDINGS: Left intramedullary nail and femoral head fixation surgical hardware redemonstrated, with d ecreased prominence of the intertrochanteric fracture lucency, consistent with interval healing. Late ral subcutaneous surgical delicia. IMPRESSION: Metallic hardware from left femoral intertrochanteric fracture fixation in satisfactory p osition, with evidence of interval healing versus 10/18/2019 comparison.
--- NOTE | 2019-11-01 15:33 | P.CNOR ---
History of Present Illness - [facility] Consult date: 11/01/19 Consult reason: other (Follow-up left hip Surgery) History of present illness: his is a pleasant 83 years old female with past medical history of diabetes mellitus, hypothyroidism, sleep apnea on CPAP/BiPAP. Her PCP is Dr. Kelly She was recently admitted on 10/17-10/20 for fall and left humerus and left hip fracture status post IT nail placement on 10/[address] Thornton. And she was discharged to rehab with no complications. On discharge day her hemoglobin was 8.5, however at rehab patient was noticed to have low hemoglobin at 7 with black tarry stool so she was referred to the emergency room for possible GI bleed. Patient denies any abdominal pain or chest pain or dyspnea. No change in urine or bowel habits except for the black stool. No headache or dizziness. However patient states for the last 5-6 days she was unable to move because of worsening pain in her left leg, as one of the Aides did not help her right and she has some twisting and her left leg. However There are there is no erythema, tenderness or deformity vitals stable. She complains of pain in the buttock down the left leg since the incident at rehab. We're consulted for orthopedic evaluation and follow-up. Past Medical History Past Medical History: Diabetes Mellitus, Sleep Apnea/CPAP/BIPAP, Thyroid Disorder History of Any Multi-Drug Resistant Organisms: None Reported Past Surgical History: Hysterectomy, Orthopedic Surgery Past Anesthesia/Blood Transfusion Reactions: No Reported Reaction Past Psychological History: No Psychological Hx Reported Smoking Status: Current some day smoker Past Alcohol Use History: Occasional Past Drug Use History: None Reported - Past Family History Father Family Medical History: No Reported History Medications and Allergies Home Medications Medication Instructions Recorded Confirmed Type Dulaglutide [Trulicity] 1.5 mg SQ Q10D@79910/05/16 10/31/19 History Glimepiride [Amaryl] 2 mg PO DAILY@79910/05/16 10/31/19 History Levothyroxine Sodium [Synthroid] 75 mcg PO MOTUWETHFRSA@0600 10/05/16 10/31/19 History Cholecalciferol [Vitamin D3 (25 2,000 unit PO DAILY@1700 03/09/17 10/31/19 History Mcg = 1000 Iu)] Ergocalciferol [Vitamin D2 50,000 unit PO Q14D@1700 03/09/17 10/31/19 History (DRISDOL)] Rosuvastatin Calcium [Crestor] 40 mg PO HS@2100 12/11/17 10/31/19 History [place]-3 Fatty Acids/Fish Oil 1 cap PO DAILY@1700 10/17/19 10/31/19 History [[place]-3 Fish Oil 1,200 mg Sfgl] Acetaminophen Tab [Tylenol] 650 mg PO Q6HR PRN tab 10/21/19 10/31/19 Rx Heparin Sodium,Porcine [Heparin 5,000 unit SQ Q12HR #28 vial 10/21/19 10/31/19 Rx Sodium] ALPRAZolam [Xanax] 0.25 mg PO HS PRN 10/31/19 10/31/19 History Aspirin 325 mg PO Q12H 10/31/19 10/31/19 History Cyanocobalamin [Vitamin B-12] 1,000 mcg PO DAILY@0800 10/31/19 10/31/19 History Ferrous Sulfate [Feosol] 325 mg PO TID@0800,1200,1700 10/31/19 10/31/19 History Gabapentin [Neurontin] 100 mg PO BID@0800,1700 10/31/19 10/31/19 History Glucerna Shake 120 ml PO BID@0800,1200 10/31/19 10/31/19 History HYDROcodone/APAP 5-325MG [[place] 5] 1 - 2 tab PO Q4-6H PRN 10/31/19 10/31/19 History INSULIN ASPART (NovoLOG) [NovoLOG See Protocol SQ ACHS 10/31/19 10/31/19 History (formulary)] Magnesium Hydroxide [Milk of 7,200 mg PO Q48H PRN 10/31/19 10/31/19 History Magnesia Concentrate] Melatonin 1 mg PO HS@2100 10/31/19 10/31/19 History Na Phos,M-B/Na Phos,Di-Ba [Fleet 133 ml RECTAL DAILY PRN 10/31/19 10/31/19 History Adult] Sennosides-Docusate Sodium 2 tab PO DAILY@0800 10/31/19 10/31/19 History [Senokot-S] bisacodyL [Bisacodyl] 10 mg RECTAL DAILY PRN 10/31/19 10/31/19 History polyethylene glycoL 3350 [Miralax] 17 gm PO DAILY@1700 10/31/19 10/31/19 History Allergies Allergy/AdvReac Type Severity Reaction Status Date / Time milk AdvReac Diarrhea Verified 10/31/19 17:52 Physical Examination This is a pleasant 83-year-old female in no acute distress. She is alert and oriented 3. Exam of the head neck reveal no obvious deformity. Exam of the upper extremities reveals a sling in place to the left arm. There is minimal pain with palpation about the left shoulder. Exam of the low back reveals mild pain with palpation about the lower lumbar spine and left paraspinal musculature. There is tenderness with palpation about the buttock. Exam the lower extremities reveals that her left hip incisions are well-healed. Moses are in place. There is no erythema or ecchymosis. She is able to actively flex the hip and knee but unable to straight leg raise independently. She has full foot and ankle motion bilaterally without difficulty or pain. Neurovascular status to the lower extremities grossly intact. Results X-rays of the left hip reveal intertrochanteric nail into position and alignment. Fracture is healing in good position. Fracture line still evident. Left shoulder x-rays reveal a healing tuberosity fracture in the position and alignment. Lumbar x-rays reveal mild to moderate degenerative changes with mild anterolisthesis at L4 5. Mild narrowing of disc spaces at L2-3 and 3-4. No acute fractures identified. - Labs Labs: Abnormal Lab Results - Last 24 Hours (Table) 10/31/19 10/31/19 10/31/19 Range/Units 17:54 18:02 18:02 WBC 11.1 H (3.8-10.6) k/uL RBC 2.55 L (3.80-5.40) m/uL Hgb 7.1 L (11.4-16.0) gm/dL Hct 22.2 L (34.0-46.0) % Plt Count 680 H (150-450) k/uL Neutrophils # 9.0 H (1.3-7.7) k/uL Sodium 134 L (137-145) mmol/L Chloride (98-107) mmol/L BUN 22 H (7-17) mg/dL Creatinine 1.46 H (0.52-1.04) mg/dL Glucose 172 H (74-99) mg/dL POC Glucose (mg/dL) (75-99) mg/dL Magnesium 2.4 H (1.6-2.3) mg/dL Total Protein 5.5 L (6.3-8.2) g/dL Albumin 3.2 L (3.5-5.0) g/dL Urine Blood (Negative) Ur Leukocyte Esterase (Negative) Urine Bacteria (None) /hpf Stool Occult Blood Positive H (Negative) 11/01/19 11/01/19 11/01/19 Range/Units 04:13 11:33 11:33 WBC (3.8-10.6) k/uL RBC 2.71 L (3.80-5.40) m/uL Hgb 7.4 L (11.4-16.0) gm/dL Hct 23.5 L (34.0-46.0) % Plt Count 690 H (150-450) k/uL Neutrophils # 8.4 H (1.3-7.7) k/uL Sodium (137-145) mmol/L Chloride 108 H (98-107) mmol/L BUN (7-17) mg/dL Creatinine 1.21 H (0.52-1.04) mg/dL Glucose 127 H (74-99) mg/dL POC Glucose (mg/dL) (75-99) mg/dL Magnesium (1.6-2.3) mg/dL Total Protein (6.3-8.2) g/dL Albumin (3.5-5.0) g/dL Urine Blood Moderate H (Negative) Ur Leukocyte Esterase Moderate H (Negative) Urine Bacteria Rare H (None) /hpf Stool Occult Blood (Negative) 11/01/19 Range/Units 12:37 WBC (3.8-10.6) k/uL RBC (3.80-5.40) m/uL Hgb (11.4-16.0) gm/dL Hct (34.0-46.0) % Plt Count (150-450) k/uL Neutrophils # (1.3-7.7) k/uL Sodium (137-145) mmol/L Chloride (98-107) mmol/L BUN (7-17) mg/dL Creatinine (0.52-1.04) mg/dL Glucose (74-99) mg/dL POC Glucose (mg/dL) 148 H (75-99) mg/dL Magnesium (1.6-2.3) mg/dL Total Protein (6.3-8.2) g/dL Albumin (3.5-5.0) g/dL Urine Blood (Negative) Ur Leukocyte Esterase (Negative) Urine Bacteria (None) /hpf Stool Occult Blood (Negative) H & H 10/31/19 11/01/19 Range/Units 18:02 11:33 Hgb 7.1 L 7.4 L (11.4-16.0) gm/dL Hct 22.2 L 23.5 L (34.0-46.0) % Result Diagrams: 11/01/19 11:33 11/01/19 11:33 Assessment and Plan (1) Lumbar radiculopathy Current Visit: Yes Status: Acute Code(s): M54.16 - RADICULOPATHY, LUMBAR REGION SNOMED Code(s): 805920012 (2) Degenerative joint disease (DJD) of lumbar spine Current Visit: Yes Status: Acute Code(s): M47.816 - SPONDYLOSIS W/O MYELOPATHY OR RADICULOPATHY, LUMBAR REGION SNOMED Code(s): 699212145 (3) Anemia Current Visit: Yes Status: Acute Code(s): D64.9 - ANEMIA, UNSPECIFIED SNOMED Code(s): 129564129 (4) GI bleed Current Visit: Yes Status: Acute Code(s): K92.2 - GASTROINTESTINAL HEMORRHAGE, UNSPECIFIED SNOMED Code(s): 38272711 (5) Diabetes mellitus Current Visit: No Status: Acute Code(s): E11.9 - TYPE 2 DIABETES MELLITUS WITHOUT COMPLICATIONS SNOMED Code(s): 89475499 (6) Humerus fracture Current Visit: No Status: Acute Code(s): S42.309A - UNSP FRACTURE OF SHAFT OF HUMERUS, UNSP ARM, INIT SNOMED Code(s): 81271941 (7) Intertrochanteric fracture of left hip Current Visit: No Status: Acute Code(s): S72.142A - DISPLACED INTERTROCHANTERIC FRACTURE OF LEFT FEMUR, INIT SNOMED Code(s): 929844877 Plan: The clinical and x-ray findings are discussed with the patient. Her acute low back and left leg pain is most likely secondary to a lumbar radicular issue. Her hip is healing well. I recommend physical therapy for ambulation and low back program. She may require further inpatient rehabilitation secondary to her new problem. Continue toe-touch weightbearing to the left lower extremity with walker.
[2019-11-01] MEDS: GABAPENTIN 100 MG CAP PO SCH (15:57)
[2019-11-01] MEDS: CHOLECALCIFEROL 1,000 UNIT TAB PO SCH (15:57)
--- NOTE | 2019-11-01 16:39 | P.PN ---
Progress Note - Text Progress Note Date: 11/01/19 Clarification: The patient is Weight bearing as tolerated with walker.
[2019-11-01 16:52] LABS: Glucose,Whole Blood 174 mg/dL (75-99)
--- NOTE | 2019-11-01 17:19 | XR ---
EXAMINATION TYPE: XR lumbar spine 2 or 3V DATE OF EXAM: 11/01/2019 CLINICAL HISTORY: Acute lower back pain. TECHNIQUE: Frontal and lateral images of the lumbar spine obtained. COMPARISON: None. FINDINGS: There are 5 lumbar type vertebral bodies identified. The lumbar spine shows satisfactory alignment without evidence of acute fracture or dislocation. Vertebral body heights are within normal limits. There is multilevel mild to moderate disc space narrowing and endplate degenerative spurring . Multilevel facet arthropathy bilaterally involving the inferior lumbar spine. Grade 1 anterolisthes is of L4 on L5. IMPRESSION: 1. No acute fracture or dislocation is seen in the lumbar spine. 2. Degenerative disc disease and extensive facet arthropathy. 3. Grade 1 anterolisthesis of L4 on L5.
[2019-11-01 20:54] LABS: Ferritin 73.4 ng/mL (10.0-291.0)
[2019-11-01 21:03] LABS: % Iron Saturation 7.77 (12.00-45.00); Folate, Serum 15.9 ng/mL
[2019-11-01 21:22] LABS: Glucose,Whole Blood 122 mg/dL (75-99)
--- NOTE | 2019-11-01 23:33 | CONS ---
CONSULTATION DATE OF DICTATION: November 01, 2019. REQUESTING PHYSICIAN: Dr. Sy. REASON FOR CONSULTATION: Acute GI bleed. HISTORY OF PRESENT ILLNESS: The patient is an 83-year-old pleasant white female with history of diabetes mellitus, hypothyroidism, and sleep apnea, was admitted to the hospital 10 days ago at which time, she had a fall, and had left humerus and left hip fracture for which she underwent surgery. She was sent to a rehab institute. While in the rehab, she noticed some black tarry stools for the last 2 days duration and dropped hemoglobin to 7.7 g/dL and hence she was transferred to the emergency room and subsequently admitted to the hospital for further evaluation. She denies any abdominal pain. No nausea, vomiting. No prior history of peptic ulcer disease. No recent NSAID use. PAST MEDICAL HISTORY: Significant for diabetes mellitus, hypothyroidism, sleep apnea. PAST SURGICAL HISTORY: Hysterectomy, recent left hip surgery. MEDICATIONS: Medications at home include subcu heparin, Xanax, aspirin, vitamin B12, iron sulfate, Neurontin, Glucerna, [place], NovoLog, melatonin, Senokot, Fleets enema p.r.n., Colace p.r.n., MiraLAX p.r.n. ALLERGIES: MILK. SOCIAL HISTORY: No smoking. No alcohol use. FAMILY HISTORY: Unremarkable. REVIEW OF SYSTEMS: CARDIOPULMONARY: No chest pain or shortness of breath. no dysuria or hematuria. MUSCULOSKELETAL unremarkable. SKIN unremarkable. ENDOCRINE unremarkable. PSYCHIATRIC unremarkable. MUSCULOSKELETAL: Left hip pain from recent surgery. ENT: Vision unremarkable. NEUROLOGY unremarkable. CONSTITUTIONAL: No recent weight loss. No fever, chills, night sweats. PHYSICAL EXAMINATION: She appears comfortable. No apparent distress. Vital signs stable. Blood pressure is 162/67, pulse is 70, temperature 98.3. HEENT examination unremarkable. Sclerae anicteric. Oral cavity no lesions. Neck no JVD or lymph node enlargement. Chest was clear to auscultation. HEART: Regular rate and rhythm. ABDOMEN: Soft, it was nontender, nondistended. Bowel sounds are positive. No organomegaly. EXTREMITIES: No pedal edema. SKIN no rashes. NEUROLOGIC: Alert and oriented x3. No focal deficits. LABS: WBC 11, hemoglobin 7.1, platelets 162. Basic metabolic panel is within normal limits. MCV is 86. BUN and creatinine are 32 and 1.46 respectively. Stool Hemoccult was positive. IMPRESSION: 1. This is a lady presented to the hospital with black tarry stools for the last 3-4 days duration noted to have a hemoglobin of 7.1 g/dL. She recently was admitted to the hospital with left hip fracture for which she underwent surgery 2 weeks ago and at the time of discharge to the hospital her hemoglobin was 8.1 g/dL, presently having black tarry stools for the last 3-4 days duration most likely dealing with an upper GI source of bleeding. No prior history of peptic ulcer disease in the past. 2. Recent hip fracture, presently undergoing daily rehab therapy. 3. History of diabetes mellitus, hypertension, hyperlipidemia. RECOMMENDATIONS: 1. Hold aspirin and subcu heparin. 2. Continue with Protonix 40 mg twice daily. 3. Clear liquid diet. 4. We will proceed with an upper endoscopy tomorrow. 5. Discussed with the patient, risks, benefits and complications and she is agreeable to it. Thank you for this consultation. LA NENA / MERLINE: [id number] /
[2019-11-02] MEDS: ATORVASTATIN 80 MG TAB PO SCH ×2 (00:38→21:29)
[2019-11-02] MEDS: SODIUM CHLORIDE 0.9% 1,000 ML IV SCH (00:39)
[2019-11-02] MEDS: ACETAMINOPHEN TAB 325 MG TAB PO PRN ×3 (01:24→23:56)
[2019-11-02] MEDS: MELATONIN 1 MG TAB PO SCH ×2 (01:25→21:28)
[2019-11-02] MEDS: INSULIN ASPART (NovoLOG) 100 UNIT/ML VIAL SQ SCH ×5 (01:32→21:30)
[2019-11-02] MEDS: LEVOTHYROXINE 75 MCG TAB PO SCH (07:18)
[2019-11-02 07:40] LABS: Basophils % (A) 0 %; Eosinophils # (A) 0.3 k/uL (0-0.7); Eosinophils % (A) 3 %; HCT 23.4 % (34.0-46.0); HGB 7.1 gm/dL (11.4-16.0); Hypochromasia Slight; Lymphocytes # (A) 1.1 k/uL (1.0-4.8); Lymphocytes % (A) 13 %; MCH 26.3 pg (25.0-35.0); MCHC 30.2 g/dL (31.0-37.0); MCV 87.2 fL (80.0-100.0); Mean Platelet Volume 6.8; Monocytes # (A) 0.5 k/uL (0-1.0); Monocytes % (A) 5 %; Neutrophils # (A) 6.8 k/uL (1.3-7.7); Neutrophils % (A) 78 %; Platelet Count 612 k/uL (150-450); RBC 2.68 m/uL (3.80-5.40); RDW 15.5 % (11.5-15.5); WBC 8.7 k/uL (3.8-10.6)
[2019-11-02 07:40] LABS: Glucose,Whole Blood 123 mg/dL (75-99)
[2019-11-02 07:49] LABS: Calcium 8.4 mg/dL (8.4-10.2); Potassium 4.2 mmol/L (3.5-5.1)
[2019-11-02] MEDS: PANTOPRAZOLE 40 MG/10 ML VIAL IVP SCH ×2 (08:03→21:29)
[2019-11-02] MEDS: polyethylene glycoL 3350 17 GM POWD.PACK PO SCH ×3 (08:03→14:44)
[2019-11-02] MEDS: CYANOCOBALAMIN 500 MCG TAB PO SCH (08:03)
[2019-11-02] MEDS: GABAPENTIN 100 MG CAP PO SCH ×2 (08:03→17:41)
[2019-11-02] MEDS: FERROUS SULFATE 325 MG TAB PO SCH ×3 (08:03→17:41)
--- NOTE | 2019-11-02 10:46 | P.PN ---
Subjective This is a pleasant 83 years old female with past medical history of diabetes mellitus, hypothyroidism, sleep apnea on CPAP/BiPAP. Her PCP is Dr. Kelly She was recently admitted on 10/17-10/20 for fall and left humerus and left hip fracture status post IT nail placement on 10/17 by orthopedic team by Dr. Thornton. And she was discharged to rehab with no complications. On discharge day her hemoglobin was 8.5, however at rehab patient was noticed to have low hemoglobin at 7 with black tarry stool so she was referred to the emergency room for possible GI bleed. Patient denies any abdominal pain or chest pain or dyspnea. No change in urine or bowel habits except for the black stool. No headache or dizziness. However patient states for the last 5-6 days she was unable to move because of worsening pain in her left leg, as one of the Aides did not help her right and she has some twisting and her left leg. However There are there is no erythema, tenderness or deformity vitals stable. Positive BLOOD in stools. Hemoglobin 7.1, WBCs is 11.1, creatinine 1.4, baseline is 0.6-0.75 11/02/2019 Patient awake with no abdominal pain or new symptoms, no more blood per stool as per patient, vitals are stable and hemoglobin is stable at 7.1, compared to 7.4 yesterday. WBC is back to normal at 8.7K. GI team evaluated the patient and recommended to hold aspirin and subcutaneous heparin and recommended upper endoscopy and continue with Protonix for now. Creatinine is improving down to 1.09 today and IV fluids were stopped today Orthopedic team evaluated the patient for her left humerus and left hip fracture, repeat x-rays were negative. Patient can bear weight as tolerated and patient informed and she agrees. PT is reordered Review of Systems CONSTITUTIONAL: No fever, no malaise, no fatigue. HEENT: No recent visual problems or hearing problems. Denied any sore throat. CARDIOVASCULAR: No orthopnea, PND, no palpitations, no syncope. PULMONARY: No shortness of breath, no cough, no hemoptysis. GASTROINTESTINAL: No diarrhea, no nausea, no vomiting, no abdominal pain. Normoactive bowel sounds. NEUROLOGICAL: No headaches, no weakness, no numbness. HEMATOLOGICAL: Denies any bleeding or petechiae. GENITOURINARY: Denies any burning micturition, frequency, or urgency. MUSCULOSKELETAL/RHEUMATOLOGICAL: Denies any joint pain, swelling, or any muscle pain. ENDOCRINE: Denies any polyuria or polydipsia. Active Medications Generic Name Dose Route Start Last Admin Trade Name Freq PRN Reason Stop Dose Admin Acetaminophen 650 mg 10/31/19 19:18 11/02/19 01:24 Tylenol Tab PO 650 mg Q6HR PRN Administration Mild Pain or Fever > 100.5 Atorvastatin Calcium 80 mg 11/01/19 21:00 11/02/19 00:38 Lipitor PO 80 mg HS@2100 [facility] Administration Cholecalciferol 2,000 unit 11/01/19 17:00 11/01/19 15:57 Vitamin D3 (25 Mcg = 1000 Iu) PO 2,000 unit DAILY@1700 [facility] Administration Cyanocobalamin 1,000 mcg 11/02/19 08:00 11/02/19 08:03 Vitamin B-12 PO 1,000 mcg DAILY@0800 [facility] Administration Ergocalciferol 50,000 unit 11/07/19 17:00 Vitamin D2 PO Q14D@1700 [facility] Ferrous Sulfate 325 mg 11/01/19 12:00 11/02/19 08:03 Feosol PO 325 mg TID@0800,1200,1700 [facility] Administration Gabapentin 100 mg 11/01/19 17:00 11/02/19 08:03 Neurontin PO 100 mg BID@0800,1700 [facility] Administration Hydromorphone HCl 0.5 mg 10/31/19 19:18 Dilaudid IVP Q3HR PRN Moderate Pain Sodium Chloride 1,000 mls @ 75 mls/hr 10/31/19 19:30 11/02/19 00:39 Saline 0.9% IV 75 mls/hr .[id number] [facility] Administration Ceftriaxone Sodium 1 gm/ 50 mls @ 100 mls/hr 11/01/19 12:00 11/02/19 08:02 Sodium Chloride IVPB 100 mls/hr Q24HR [facility] Administration Insulin Aspart 0 unit 11/01/19 12:30 11/02/19 07:47 Novolog SQ Not Given ACHS [facility] Protocol Levothyroxine Sodium 75 mcg 11/02/19 06:00 11/02/19 07:18 Synthroid PO 75 mcg MOTUWETHFRSA@0600 [facility] Administration Lorazepam 0.5 mg 10/31/19 19:18 Ativan IV Q6HR PRN Anxiety Melatonin 1 mg 11/01/19 21:00 11/02/19 01:25 Melatonin PO 1 mg HS@2100 [facility] Administration Naloxone HCl 0.2 mg 10/31/19 19:18 Narcan IV Q2M PRN Opioid Reversal Pantoprazole Sodium 40 mg 11/01/19 09:30 11/02/19 08:03 Protonix IVP 40 mg DAILY [facility] Administration Polyethylene Glycol 17 gm 11/02/19 09:00 11/02/19 08:03 Miralax PO 17 gm DAILY [facility] Administration Creatinine improving with IV fluids down to 1.2 Objective - Vital Signs Vital signs: Vital Signs Temp 98.2 F 11/02/19 08:05 Pulse 67 11/02/19 08:05 Resp 16 11/02/19 08:05 BP 167/67 11/02/19 08:05 Pulse Ox 98 11/02/19 08:05 Intake & Output 11/01/19 11/02/19 11/02/19 18:59 06:59 18:59 Intake Total 600 Output Total 1 2 Balance -1 598 Intake: Intake, IV Titration 600 Amount Sodium Chloride 0.9% 1, 600 000 ml @ 75 mls/hr IV . [id number] [facility] Rx#:[id number] Output: Stool 1 2 Other: Voiding Method Bedpan Bedpan Toilet Bedside Commode # Voids 1 2 - Exam GENERAL: The patient is alert and oriented x3, not in any acute distress. Well developed, well nourished. HEENT: Pupils are round and equally reacting to light. EOMI. No scleral icterus. No conjunctival pallor. Normocephalic, atraumatic. No pharyngeal erythema. No thyromegaly. CARDIOVASCULAR: S1 and S2 present. No murmurs, rubs, or gallops. PULMONARY: Chest is clear to auscultation, no wheezing or crackles. ABDOMEN: Soft, nontender, nondistended, normoactive bowel sounds. No palpable organomegaly. MUSCULOSKELETAL: No joint swelling or deformity. EXTREMITIES: No cyanosis, clubbing, or pedal edema. NEUROLOGICAL: Gross neurological examination did not reveal any focal deficits. SKIN: No rashes. no petechiae.a - Labs CBC & Chem 7: 11/02/19 07:15 11/02/19 07:15 Labs: Abnormal Lab Results - Last 24 Hours (Table) 11/01/19 11/01/19 11/01/19 Range/Units 11:33 11:33 12:37 RBC 2.71 L (3.80-5.40) m/uL Hgb 7.4 L (11.4-16.0) gm/dL Hct 23.5 L (34.0-46.0) % MCHC (31.0-37.0) g/dL Plt Count 690 H (150-450) k/uL Neutrophils # 8.4 H (1.3-7.7) k/uL Chloride 108 H (98-107) mmol/L Creatinine 1.21 H (0.52-1.04) mg/dL Glucose 127 H (74-99) mg/dL POC Glucose (mg/dL) 148 H (75-99) mg/dL Iron 23 L (50-170) ug/dL % Saturation 7.77 L (12.00-45.00) Vitamin B12 2278.0 H (200.0-944.0) pg/mL 11/01/19 11/01/19 11/02/19 Range/Units 16:49 21:13 07:15 RBC 2.68 L (3.80-5.40) m/uL Hgb 7.1 L (11.4-16.0) gm/dL Hct 23.4 L (34.0-46.0) % MCHC 30.2 L (31.0-37.0) g/dL Plt Count 612 H (150-450) k/uL Neutrophils # (1.3-7.7) k/uL Chloride (98-107) mmol/L Creatinine (0.52-1.04) mg/dL Glucose (74-99) mg/dL POC Glucose (mg/dL) 174 H 122 H (75-99) mg/dL Iron (50-170) ug/dL % Saturation (12.00-45.00) Vitamin B12 (200.0-944.0) pg/mL 11/02/19 11/02/19 Range/Units 07:15 07:39 RBC (3.80-5.40) m/uL Hgb (11.4-16.0) gm/dL Hct (34.0-46.0) % MCHC (31.0-37.0) g/dL Plt Count (150-450) k/uL Neutrophils # (1.3-7.7) k/uL Chloride 108 H (98-107) mmol/L Creatinine 1.09 H (0.52-1.04) mg/dL Glucose 113 H (74-99) mg/dL POC Glucose (mg/dL) 123 H (75-99) mg/dL Iron (50-170) ug/dL % Saturation (12.00-45.00) Vitamin B12 (200.0-944.0) pg/mL Assessment and Plan Assessment: Severe anemia with positive occult blood in the stool, rule out GI bleed. Acute blood loss anemia Acute kidney injury acute urinary tract infection Recent fall and left humerus and left hip fracture status post IT nail placement on 10/17 by orthopedic team by Dr. Thornton. With recent worsening of her left leg pain at rehab after twisting her leg Diabetes mellitus Hypothyroidism Sleep apnea on CPAP/BiPAP Plan: This is a pleasant 83 years old female who presents with GI bleed and recent left humerus/hip fracture status post IT nail. Hold anticoagulants tilted by GI team. Continue with Protonix. GI and orthopedic consult. Keep monitoring hemoglobin and transfuse blood more drop in hemoglobin. Continue with IV fluids and monitor creatinine. Start Rocephin and follow-up urine culture. Repeat urinalysis negative we may stop antibiotic Labs and medication were reviewed.. Continue same treatment. Continue with symptomatic treatment. Resume home medication. Monitor lytes and vitals. DVT and GI prophylaxis. Further recommendations of the clinical course of the patient DVT prophylaxis: no Subcutaneous heparin in view of possible GI bleed GI Prophylaxis: Ppi PT/OT: Pending Prognosis is guarded
[2019-11-02] MEDS ORDERED: PROPOFOL 10 MG/ML 20 ML VIAL IV ONE (11:12)
[2019-11-02] MEDS ORDERED: IV FLUID CONTINUATION 300 ML IV ONE (11:15)
[2019-11-02] MEDS: SUCRALFATE 1 GM TAB PO SCH ×3 (11:46→21:29)
--- NOTE | 2019-11-02 11:56 | P.PCN ---
Date of Procedure: 11/02/19 Description of Procedure: BRIEF HISTORY: Patient is a 83-year-old female who recently underwent surgery 2 weeks ago and presented back to the hospital with complaints of black tarry bowel movements, occurring over the past 3-4 days with fall in her hemoglobin to 7.1. No prior history of peptic ulcer disease. PROCEDURE PERFORMED: Esophagogastroduodenoscopy with biopsy. PREOPERATIVE DIAGNOSIS: GI bleed, anemia of acute blood loss, melena. ESTIMATED BLOOD LOSS: Minimal. IV sedation per anesthesia. PROCEDURE: After informed consent was obtained, the patient was brought into the endoscopy unit. IV sedation was administered by Anesthesia under continuous monitoring. Initially the Olympus GIF-190 video endoscope was inserted into the mouth. Esophagus intubated without any difficulty. It was gradually advanced into the stomach and duodenum and carefully examined. The second part of the duodenum appeared normal, with a large 1.5 cm cratered nonbleeding duodenal bulb ulcer without high-risk stigmata for bleeding, with biopsies taken. The scope at this time was withdrawn to the stomach, adequately insufflated with air, and upon careful examination, mucosa of the antrum, body, cardia and the fundus appeared normal, except for some punctate erythema suggestive of mild gastritis which was biopsied. The scope was then withdrawn into the esophagus. The GE junction was located at 37 cm from the incisors, 1 cm hiatal hernia noted. The esophagus appeared normal. There were no erosions or ulcerations seen and the patient tolerated the procedure well. IMPRESSION: 1. Nonbleeding duodenal bulb ulcer without high-risk stigmata for bleeding, biopsied. 2. Out gastritis, biopsied. 3. Small hiatal hernia. RECOMMENDATIONS: The findings of this examination were discussed with the patient. Okay for full liquid diet. Continue monitor hemoglobin and hematocrit and transfuse as needed. Continue to hold any anticoagulation or antiplatelet therapy for an additional 48 hours. Protonix INCREASED to twice daily. Carafate added 4 times a day.
[2019-11-02 12:28] LABS: Glucose,Whole Blood 185 mg/dL (75-99)
[2019-11-02 17:28] LABS: Glucose,Whole Blood 217 mg/dL (75-99)
[2019-11-02] MEDS: CHOLECALCIFEROL 1,000 UNIT TAB PO SCH (17:42)
[2019-11-02 20:17] LABS: Glucose,Whole Blood 215 mg/dL (75-99)
[2019-11-02 23:38] LABS: Appearance,Urine Clear (Clear)
[2019-11-02 23:39] LABS: Bilirubin,Urine Negative (Negative); Blood,Urine Negative (Negative); Color,Urine Yellow; Glucose,Urine (UA) Negative (Negative); Ketones,Urine Negative (Negative); Leukocyte Esterase,Urine Negative (Negative); Nitrite,Urine Negative (Negative); Protein,Urine Negative (Negative); Specific Gravity,Urine 1.005 (1.001-1.035); Urobilinogen,Urine <2.0 mg/dL (<2.0)
[2019-11-03 07:26] LABS: Glucose,Whole Blood 134 mg/dL (75-99)
[2019-11-03] MEDS: CYANOCOBALAMIN 500 MCG TAB PO SCH (07:45)
[2019-11-03] MEDS: SUCRALFATE 1 GM TAB PO SCH ×4 (07:45→21:26)
[2019-11-03] MEDS: FERROUS SULFATE 325 MG TAB PO SCH ×3 (07:45→17:44)
[2019-11-03] MEDS: GABAPENTIN 100 MG CAP PO SCH ×2 (07:46→17:44)
[2019-11-03] MEDS: polyethylene glycoL 3350 17 GM POWD.PACK PO SCH (07:46)
[2019-11-03] MEDS: INSULIN ASPART (NovoLOG) 100 UNIT/ML VIAL SQ SCH ×4 (07:46→21:26)
[2019-11-03] MEDS: PANTOPRAZOLE 40 MG/10 ML VIAL IVP SCH ×2 (07:46)
[2019-11-03] MEDS: ACETAMINOPHEN TAB 325 MG TAB PO PRN ×2 (07:47→21:29)
[2019-11-03 09:48] LABS: Basophils % (A) 0 %; Eosinophils # (A) 0.3 k/uL (0-0.7); Eosinophils % (A) 4 %; HCT 24.8 % (34.0-46.0); HGB 7.3 gm/dL (11.4-16.0); Hypochromasia Moderate; Lymphocytes # (A) 0.9 k/uL (1.0-4.8); Lymphocytes % (A) 15 %; MCH 26.6 pg (25.0-35.0); MCHC 29.6 g/dL (31.0-37.0); Mean Platelet Volume 7.6; Monocytes # (A) 0.3 k/uL (0-1.0); Monocytes % (A) 5 %; Neutrophils # (A) 4.6 k/uL (1.3-7.7); Neutrophils % (A) 75 %; Platelet Count 631 k/uL (150-450); RBC 2.75 m/uL (3.80-5.40); RDW 15.5 % (11.5-15.5); WBC 6.2 k/uL (3.8-10.6)
[2019-11-03 09:59] LABS: Calcium 8.8 mg/dL (8.4-10.2); Potassium 3.8 mmol/L (3.5-5.1)
--- NOTE | 2019-11-03 10:13 | P.PN ---
Subjective This is a pleasant 83 years old female with past medical history of diabetes mellitus, hypothyroidism, sleep apnea on CPAP/BiPAP. Her PCP is Dr. Kelly She was recently admitted on 10/17-10/20 for fall and left humerus and left hip fracture status post IT nail placement on 10/17 by orthopedic team by Dr. Thornton. And she was discharged to rehab with no complications. On discharge day her hemoglobin was 8.5, however at rehab patient was noticed to have low hemoglobin at 7 with black tarry stool so she was referred to the emergency room for possible GI bleed. Patient denies any abdominal pain or chest pain or dyspnea. No change in urine or bowel habits except for the black stool. No headache or dizziness. However patient states for the last 5-6 days she was unable to move because of worsening pain in her left leg, as one of the Aides did not help her right and she has some twisting and her left leg. However There are there is no erythema, tenderness or deformity vitals stable. Positive BLOOD in stools. Hemoglobin 7.1, WBCs is 11.1, creatinine 1.4, baseline is 0.6-0.75 11/02/2019 Patient awake with no abdominal pain or new symptoms, no more blood per stool as per patient, vitals are stable and hemoglobin is stable at 7.1, compared to 7.4 yesterday. WBC is back to normal at 8.7K. GI team evaluated the patient and recommended to hold aspirin and subcutaneous heparin and recommended upper endoscopy and continue with Protonix for now. Creatinine is improving down to 1.09 today and IV fluids were stopped today Orthopedic team evaluated the patient for her left humerus and left hip fracture, repeat x-rays were negative. Patient can bear weight as tolerated and patient informed and she agrees. PT is reordered 11/03/2019 Patient clinically looks awake with no abdominal pain. She is tolerating diet. Yesterday she had an EGD which shows nonbleeding duodenal ulcer with high-risk stigmata, biopsy was taken as well as gastritis with gastric biopsies as well. Patient informed with these findings, she patient was instructed to follow-up with the biopsy and risks explained to her including but not limited to the risk of cancer and she verbalized understanding and acceptance. Patient does not want her family to be pulled so they will not be recount from her illnesses. She had hard stool which is becoming more soft and she is happy about that. His pain with no difficulties. She still feeling generally weak. Vitals are stable. Hemoglobin is stable at 7.3. BMP is remarkable for significant abnormality. Repeat UA is negative and antibiotics Stopped. Patient with known urinary symptoms as well. Possible discharge in 24-48 hours Objective - Vital Signs Vital signs: Vital Signs Temp 97.3 F L 11/03/19 05:02 Pulse 59 L 11/03/19 05:02 Resp 16 11/03/19 05:02 BP 146/67 11/03/19 05:02 Pulse Ox 98 11/03/19 05:02 Intake & Output 11/02/19 11/03/19 11/03/19 18:59 06:59 18:59 Intake Total 500 Output Total 1 Balance 500 -1 Intake: IV 100 Intake, IV Titration 400 Amount cefTRIAXone 1 gm In 400 Sodium Chloride 0.9% 50 ml @ 100 mls/hr IVPB Q24HR [facility] Rx#:[id number] Output: Stool 1 Other: Voiding Method Toilet Toilet Bedside Commode Bedside Commode # Voids 2 2 1 # Bowel Movements 1 2 1 - Exam GENERAL: The patient is alert and oriented x3, not in any acute distress. Well developed, well nourished. HEENT: Pupils are round and equally reacting to light. EOMI. No scleral icterus. No conjunctival pallor. Normocephalic, atraumatic. No pharyngeal erythema. No thyromegaly. CARDIOVASCULAR: S1 and S2 present. No murmurs, rubs, or gallops. PULMONARY: Chest is clear to auscultation, no wheezing or crackles. ABDOMEN: Soft, nontender, nondistended, normoactive bowel sounds. No palpable organomegaly. MUSCULOSKELETAL: No joint swelling or deformity. EXTREMITIES: No cyanosis, clubbing, or pedal edema. NEUROLOGICAL: Gross neurological examination did not reveal any focal deficits. SKIN: No rashes. no petechiae.a - Labs CBC & Chem 7: 11/03/19 08:55 11/03/19 08:55 Labs: Abnormal Lab Results - Last 24 Hours (Table) 11/02/19 11/02/19 11/02/19 Range/Units 12:27 17:27 20:15 RBC (3.80-5.40) m/uL Hgb (11.4-16.0) gm/dL Hct (34.0-46.0) % MCHC (31.0-37.0) g/dL Plt Count (150-450) k/uL Lymphocytes # (1.0-4.8) k/uL Sodium (137-145) mmol/L Creatinine (0.52-1.04) mg/dL Glucose (74-99) mg/dL POC Glucose (mg/dL) 185 H 217 H 215 H (75-99) mg/dL 11/03/19 11/03/19 11/03/19 Range/Units 07:24 08:55 08:55 RBC 2.75 L (3.80-5.40) m/uL Hgb 7.3 L (11.4-16.0) gm/dL Hct 24.8 L (34.0-46.0) % MCHC 29.6 L (31.0-37.0) g/dL Plt Count 631 H (150-450) k/uL Lymphocytes # 0.9 L (1.0-4.8) k/uL Sodium 135 L (137-145) mmol/L Creatinine 1.14 H (0.52-1.04) mg/dL Glucose 243 H (74-99) mg/dL POC Glucose (mg/dL) 134 H (75-99) mg/dL Assessment and Plan Assessment: Severe anemia with positive occult blood in the stool, secondary to bleeding duodenal ulcer with high-risk stigmata, gastritis. Biopsies are pending Acute blood loss anemia Acute kidney injury , resolved acute urinary tract infection, resolved Recent fall and left humerus and left hip fracture status post IT nail placement on 10/17 by orthopedic team by Dr. Thornton. Diabetes mellitus Hypothyroidism Sleep apnea on CPAP/BiPAP Plan: This is a pleasant 83 years old female who presents with GI bleed and recent left humerus/hip fracture status post IT nail. Hold anticoagulants tilted by GI team. Continue with Protonix. We'll discuss with GI team went to restart anticoagulation. GI and orthopedic consult. Keep monitoring hemoglobin and transfuse blood more drop in hemoglobin. Continue with IV fluids and monitor creatinine.. stop Rocephin Labs and medication were reviewed.. Continue same treatment. Continue with s ymptomatic treatment. Resume home medication. Monitor lytes and vitals. DVT and GI prophylaxis. Further recommendations of the clinical course of the patient DVT prophylaxis: no Subcutaneous heparin in view of possible GI bleed GI Prophylaxis: Ppi PT/OT: Pending Prognosis is guarded
[2019-11-03 11:24] LABS: Glucose,Whole Blood 235 mg/dL (75-99)
[2019-11-03 15:39] VITALS: RESP 18
[2019-11-03 17:41] LABS: Glucose,Whole Blood 131 mg/dL (75-99)
[2019-11-03] MEDS: CHOLECALCIFEROL 1,000 UNIT TAB PO SCH (17:44)
--- NOTE | 2019-11-03 20:51 | P.PN ---
Progress Note - Text Progress Note Date: 11/03/19 S: The patient was seen and examined at the bedside. She reports excellent improvement in both pain and mobility. She has been able to ambulate to the bathroom and back. She is using a walker and admits that she has been putting some weight on the left arm with very little discomfort. It does hurt when she moves in certain ways. Overall, she feels she is doing much better. O: Left hip: The incisions are healing very well. No erythema or evidence of infection. No seroma. No pain with logroll or active hip flexion. She does have pain when attempting to hold the leg extended (attempted Stinchfield but didnt apply resistance). No pain with passive hip circumduction. Left shoulder: Only mild tenderness at the greater tuberosity. Able to actively elevate and abduct to 75 before being limited by pain. No pain passive internal and external rotation. Only mild pain with resisted external rotation. No pain with active axial load with the arm in neutral adduction. A: Healing left intertrochanteric femur fracture status post cephalomedullary nailing Left greater tuberosity fracture. P: I discussed the clinical findings in detail with the patient. She is doing exceptionally well. Discontinue use of the sling; however, she may choose to use it at her discretion. Ok to use the left arm to weight-bear with her walker. No use of the left arm for transfers. She may use the arm for light activities but should still avoid any lifting and should limit active elevation/abduction. Follow up outpatient in 3 weeks. We will follow peripherally at this point. Please contact us with questions or clarifications. Josias Thornton D.O. [facility]
[2019-11-03 21:03] LABS: Glucose,Whole Blood 194 mg/dL (75-99)
[2019-11-03] MEDS: MELATONIN 1 MG TAB PO SCH (21:26)
[2019-11-03] MEDS: ATORVASTATIN 80 MG TAB PO SCH (21:26)
[2019-11-04] MEDS: LEVOTHYROXINE 75 MCG TAB PO SCH (06:12)
[2019-11-04 06:22] VITALS: TEMP 97.6
[2019-11-04 06:53] LABS: Basophils % (A) 0 %; Eosinophils # (A) 0.2 k/uL (0-0.7); Eosinophils % (A) 4 %; HCT 23.9 % (34.0-46.0); HGB 7.4 gm/dL (11.4-16.0); Hypochromasia Slight; Lymphocytes # (A) 1.2 k/uL (1.0-4.8); Lymphocytes % (A) 21 %; MCH 27.3 pg (25.0-35.0); MCHC 30.9 g/dL (31.0-37.0); MCV 88.3 fL (80.0-100.0); Mean Platelet Volume 7.5; Monocytes # (A) 0.4 k/uL (0-1.0); Monocytes % (A) 6 %; Neutrophils # (A) 3.9 k/uL (1.3-7.7); Neutrophils % (A) 67 %; Platelet Count 606 k/uL (150-450); RBC 2.71 m/uL (3.80-5.40); RDW 15.4 % (11.5-15.5); WBC 5.9 k/uL (3.8-10.6)
[2019-11-04] MEDS: polyethylene glycoL 3350 17 GM POWD.PACK PO SCH (07:09)
[2019-11-04] MEDS: PANTOPRAZOLE 40 MG/10 ML VIAL IVP SCH (07:09)
[2019-11-04] MEDS: FERROUS SULFATE 325 MG TAB PO SCH ×2 (07:13→12:36)
[2019-11-04] MEDS: SUCRALFATE 1 GM TAB PO SCH ×2 (07:13→12:36)
[2019-11-04] MEDS: GABAPENTIN 100 MG CAP PO SCH (07:13)
[2019-11-04] MEDS: CYANOCOBALAMIN 500 MCG TAB PO SCH (07:13)
[2019-11-04] MEDS: ACETAMINOPHEN TAB 325 MG TAB PO PRN (07:14)
--- NOTE | 2019-11-04 07:20 | P.PN ---
Subjective Progress Note Date: 11/03/19 Principal diagnosis: Duodenal ulcer, anemia of acute blood loss Patient is seen lying in bed denying any signs or symptoms GI bleed. No abdominal pain reported. No nausea or vomiting. Objective - Vital Signs Vital signs: Vital Signs Temp 97.3 F L 11/03/19 05:02 Pulse 59 L 11/03/19 05:02 Resp 16 11/03/19 05:02 BP 146/67 11/03/19 05:02 Pulse Ox 98 11/03/19 05:02 Intake & Output 11/02/19 11/03/19 11/03/19 18:59 06:59 18:59 Intake Total 500 Output Total 1 Balance 500 -1 Intake: IV 100 Intake, IV Titration 400 Amount cefTRIAXone 1 gm In 400 Sodium Chloride 0.9% 50 ml @ 100 mls/hr IVPB Q24HR [facility] Rx#:[id number] Output: Stool 1 Other: Voiding Method Toilet Toilet Bedside Commode Bedside Commode # Voids 2 2 1 # Bowel Movements 1 2 1 - Exam On physical examination, patient appears comfortable in no apparent distress. HEAD: Normocephalic, atraumatic. EYES: No scleral icterus. No conjunctival injection. MOUTH: No lesions, tongue midline. NECK: Trachea midline, no gross abnormalities. ABDOMEN: Soft. Bowel sounds are positive. No organomegaly. No guarding or rigidity. EXTREMITIES: No pedal edema. SKIN: No rashes, no jaundice. NEUROLOGIC: Alert and oriented x3. No focal deficits. - Labs CBC & Chem 7: 11/04/19 06:08 11/03/19 08:55 Labs: Abnormal Lab Results - Last 24 Hours (Table) 11/02/19 11/02/19 11/02/19 Range/Units 12:27 17:27 20:15 RBC (3.80-5.40) m/uL Hgb (11.4-16.0) gm/dL Hct (34.0-46.0) % MCHC (31.0-37.0) g/dL Plt Count (150-450) k/uL Lymphocytes # (1.0-4.8) k/uL Sodium (137-145) mmol/L Creatinine (0.52-1.04) mg/dL Glucose (74-99) mg/dL POC Glucose (mg/dL) 185 H 217 H 215 H (75-99) mg/dL 11/03/19 11/03/19 11/03/19 Range/Units 07:24 08:55 08:55 RBC 2.75 L (3.80-5.40) m/uL Hgb 7.3 L (11.4-16.0) gm/dL Hct 24.8 L (34.0-46.0) % MCHC 29.6 L (31.0-37.0) g/dL Plt Count 631 H (150-450) k/uL Lymphocytes # 0.9 L (1.0-4.8) k/uL Sodium 135 L (137-145) mmol/L Creatinine 1.14 H (0.52-1.04) mg/dL Glucose 243 H (74-99) mg/dL POC Glucose (mg/dL) 134 H (75-99) mg/dL Assessment and Plan (1) Anemia associated with acute blood loss Narrative/Plan: A 3-year-old female presents to the hospital with complaints of black colored bowel movements found to have acute fall in her hemoglobin to 7.1 on presentation. Patient was taken for EGD with findings of gastritis, small hiatal hernia and a nonbleeding duodenal ulcer. Currently doing well with no further signs or symptoms of GI bleeding, hemoglobin is rate stable. Current Visit: Yes Status: Acute Code(s): D62 - ACUTE POSTHEMORRHAGIC ANEMIA SNOMED Code(s): 615015354 (2) GI bleed Current Visit: Yes Status: Acute Code(s): K92.2 - GASTROINTESTINAL HEMORRHAGE, UNSPECIFIED SNOMED Code(s): 11475323 Plan: Supportive care Diet advance to low fiber, low residual Continue Protonix 40 mg twice daily Carafate 4 times a day added Continue to monitor stool output Continue to monitor CBC and transfuse hemoglobin as needed Thank you for allowing us to participate in the care of the patient
[2019-11-04] MEDS ORDERED: PANTOPRAZOLE 40 MG TABLET PO SCH (07:30)
[2019-11-04] MEDS: INSULIN ASPART (NovoLOG) 100 UNIT/ML VIAL SQ SCH ×2 (07:38→12:36)
[2019-11-04 07:44] LABS: Glucose,Whole Blood 142 mg/dL (75-99)
[2019-11-04 11:33] LABS: Glucose,Whole Blood 240 mg/dL (75-99)
[2019-11-04 12:23] VITALS: BP 179/67; PULSE 58
--- NOTE | 2019-11-04 14:31 | P.DS ---
Providers Date of admission: 11/03/19 10:27 Attending physician: Kayla Sy Consults: 10/31/19 19:18 Consult Physician Stat Consulting Provider: Munir Oro Consult Reason/Comments: GI bleed, anemia Do you want consulting provider notified?: Yes 11/01/19 07:06 Consult Physician Routine Consulting Provider: Josias Thornton Consult Reason/Comments: recent surgery for left hip and humerous fracture Do you want consulting provider notified?: Yes Primary care physician: Soren Kelly [facility] Course: Diagnoses: Severe anemia with positive occult blood in the stool, secondary to bleeding duodenal ulcer with high-risk stigmata, gastritis. Biopsies are pending Acute blood loss anemia secondary to above Acute kidney injury , resolved acute urinary tract infection, resolved Recent fall and left humerus and left hip fracture status post IT nail placement on 10/17 by orthopedic team by Dr. Thornton. Diabetes mellitus Hypothyroidism Sleep apnea on CPAP/BiPAP Hospital course: This is a pleasant 83 years old female with past medical history of diabetes mellitus, hypothyroidism, sleep apnea on CPAP/BiPAP. Her PCP is Dr. Kelly She was recently admitted on 10/17-10/20 for fall and left humerus and left hip fracture status post IT nail placement on 10/17 by orthopedic team by Dr. Thornton. And she was discharged to rehab with no complications. On discharge day her hemoglobin was 8.5, however at rehab patient was noticed to have low hemoglobin at 7 with black tarry stool so she was referred to the emergency room for possible GI bleed.she had an EGD which shows nonbleeding duodenal ulcer with high-risk stigmata, biopsy was taken as well as gastritis with gastric biopsies as well. Patient informed with these findings, she patient was instructed to follow-up with the biopsy and risks explained to her including but not limited to the risk of cancer and she verbalized understanding and acceptance. Appointment with GI on 11/26/19 and patient agrees with the appointments and states she will follow up. Orthopedic team also evaluated the patient, left arm and leg x-ray were negative for acute fracture or deformity, otherwise the shows healing. Discontinue use of the sling; however, she may choose to use it at her discretion. Ok to use the left arm to weight-bear with her walker. No use of the left arm for transfers. She may use the arm for light activities but should still avoid any lifting and should limit active elevation/abduction. Follow up outpatient in 3 weeks.The patient is Weight bearing as tolerated with walker. Patient was cleared for discharge by cardiology and orthopedic team Problems and management plan were discussed with the patient and he verbalized understanding and acceptance Patient was found stable and can be discharged home however he needs follow-up as an outpatient. Patient was instructed to follow up with PCP Dr. Kelly within one week and patient agrees Patient agrees with the [facility] appointment with Dr. Martinez on 11/26/19 at 2:30 PM and she will follow-up including biopsy. Patient also was instructed to follow up with orthopedic team as an outpatient and she agrees Gen: patient is a AAOx3, no distress CVS: S1-S2, RRR, no murmur Lungs: B/L CTA, no wheezing Abdomen: soft, no distention, no tenderness, positive bowel sounds -Extremity: no leg edema or induration. Surgical wound of the left upper and lower extremity are healing Time spent more than 35 minutes Patient Condition at Discharge: Good Plan - Discharge Summary Discharge Rx Participant: No New Discharge Prescriptions: New Sucralfate [Carafate] 1 gm PO ACHS tab Pantoprazole [Protonix] 40 mg PO AC-BID #[address] tablet[address] Cristobal Levothyroxine Sodium [Synthroid] 75 mcg PO MOTUWETHFRSA@0600 Glimepiride [Amaryl] 2 mg PO DAILY@0800 Dulaglutide [Trulicity] 1.5 mg SQ Q10D@0800 Ergocalciferol [Vitamin D2 (DRISDOL)] 50,000 unit PO Q14D@1700 Cholecalciferol [Vitamin D3 (25 Mcg = 1000 Iu)] 2,000 unit PO DAILY@1700 Rosuvastatin Calcium [Crestor] 40 mg PO HS@2100 [place]-3 Fatty Acids/Fish Oil [[place]-3 Fish Oil 1,200 mg Sfgl] 1 cap PO DAILY@1700 Acetaminophen Tab [Tylenol] 650 mg PO Q6HR PRN tab PRN Reason: Mild Pain Or Fever > 100.5 ALPRAZolam [Xanax] 0.25 mg PO HS PRN PRN Reason: Anxiety Magnesium Hydroxide [Milk of Magnesia Concentrate] 7,200 mg PO Q48H PRN PRN Reason: Constipation bisacodyL [Bisacodyl] 10 mg RECTAL DAILY PRN PRN Reason: Constipation Na Phos,M-B/Na Phos,Di-Ba [Fleet Adult] 133 ml RECTAL DAILY PRN PRN Reason: Constipation INSULIN ASPART (NovoLOG) [NovoLOG (formulary)] See Protocol SQ ACHS Ferrous Sulfate [Feosol] 325 mg PO TID@0800,1200,1700 Glucerna Shake 120 ml PO BID@0800,1200 Gabapentin [Neurontin] 100 mg PO BID@0800,1700 Cyanocobalamin [Vitamin B-12] 1,000 mcg PO DAILY@0800 Melatonin 1 mg PO HS@2100 Aspirin 325 mg PO Q12H #60 Heparin Sodium,Porcine [Heparin Sodium] 5,000 unit SQ Q12HR #28 vial Changed Sennosides-Docusate Sodium [Senokot-S] 2 tab PO DAILY@0800 PRN #0 PRN Reason: Constipation Discontinued HYDROcodone/APAP 5-325MG [[place] 5] 1 - 2 tab PO Q4-6H PRN PRN Reason: Pain polyethylene glycoL 3350 [Miralax] 17 gm PO DAILY@1700 Discharge Medication List Dulaglutide [Trulicity] 1.5 mg SQ Q10D@0800 10/05/16 [History] Glimepiride [Amaryl] 2 mg PO DAILY@0800 10/05/16 [History] Levothyroxine Sodium [Synthroid] 75 mcg PO MOTUWETHFRSA@0600 10/05/16 [History] Cholecalciferol [Vitamin D3 (25 Mcg = 1000 Iu)] 2,000 unit PO DAILY@17003/09/17 [History] Ergocalciferol [Vitamin D2 (DRISDOL)] 50,000 unit PO Q14D@169903/09/17 [History] Rosuvastatin Calcium [Crestor] 40 mg PO HS@2100 12/11/17 [History] [place]-3 Fatty Acids/Fish Oil [[place]-3 Fish Oil 1,200 mg Sfgl] 1 cap PO DAILY@1700 10/17/19 [History] Acetaminophen Tab [Tylenol] 650 mg PO Q6HR PRN tab 10/21/19 [Rx] ALPRAZolam [Xanax] 0.25 mg PO HS PRN 10/31/19 [History] Cyanocobalamin [Vitamin B-12] 1,000 mcg PO DAILY@0800 10/31/19 [History] Ferrous Sulfate [Feosol] 325 mg PO TID@0800,1200,1700 10/31/19 [History] Gabapentin [Neurontin] 100 mg PO BID@0800,1700 10/31/19 [History] Glucerna Shake 120 ml PO BID@0800,1200 10/31/19 [History] INSULIN ASPART (NovoLOG) [NovoLOG (formulary)] See Protocol SQ ACHS 10/31/19 [History] Magnesium Hydroxide [Milk of Magnesia Concentrate] 7,200 mg PO Q48H PRN 10/31/19 [History] Melatonin 1 mg PO HS@2100 10/31/19 [History] Na Phos,M-B/Na Phos,Di-Ba [Fleet Adult] 133 ml RECTAL DAILY PRN 10/31/19 [History] bisacodyL [Bisacodyl] 10 mg RECTAL DAILY PRN 10/31/19 [History] Aspirin 325 mg PO Q12H #60 11/04/19 [Rx] Heparin Sodium,Porcine [Heparin Sodium] 5,000 unit SQ Q12HR #28 vial 11/04/19 [Rx] Pantoprazole [Protonix] 40 mg PO AC-BID #0 tablet. 11/04/19 [Rx] Sennosides-Docusate Sodium [Senokot-S] 2 tab PO DAILY@0800 PRN #0 11/04/19 [Rx] Sucralfate [Carafate] 1 gm PO ACHS tab 11/04/19 [Rx] Follow up Appointment(s)/Referral(s): Soren Kelly DO [Primary Care Provider] - 1-2 days Josias Thornton DO [Medical Doctor] - 3 Weeks Munir Oro MD [STAFF PHYSICIAN] - 11/26/19 2:30 pm (You will be seeing Meggan rivers NP.) Activity/Diet/Wound Care/Special Instructions: *Per GI, patient may resume aspirin PO and heparin subcut. on 11/05/19. *Orthopedic Discharge Instructions WBAT with walker or assist. No use of sling (unless patient specifically requests it). Staff should not pull on the patient's left arm when assisting with transfers or mobility. The patient may use the left arm as tolerated for transfers or with her walker. Limit active shoulder elevation (<90 degrees). No PT for the shoulder. Follow up outpatient in 3 weeks.
--- NOTE | 2019-11-04 20:01 | PN ---
PROGRESS NOTE DATE OF DICTATION: 11/04/2019 Patient is an 83-year-old pleasant white female admitted to the hospital with acute GI bleed. She had multiple episodes of melena. She just underwent hip surgery 2 weeks ago. She underwent an upper endoscopy by Dr. Oro and was noted to have a non-bleeding 1 cm duodenal ulcer. Patient is presently on Protonix 40 mg daily, doing well. No further episodes of bleeding. She is on a regular diet, tolerating well. PHYSICAL EXAMINATION: Appears comfortable. No apparent distress. Vital signs are stable. Blood pressure 179/86, pulse rate 58, temperature 97.6. HEENT examination unremarkable. Conjunctivae pink. Sclerae anicteric. Oral cavity no lesions. NECK: No JVD or lymph node enlargement. CHEST: Clear to auscultation. HEART: Regular rate and rhythm. ABDOMEN: Soft. Bowel sounds are positive. No organomegaly. EXTREMITIES: No pedal edema. SKIN: No rashes. NEUROLOGIC: Alert and oriented x3. No focal deficits. LABS: WBC 5.9, hemoglobin 7.4, platelets 606. Basic metabolic panel is within normal limits. IMPRESSION: 1. Acute upper gastrointestinal bleed, status post esophagogastroduodenoscopy two days ago that showed a duodenal ulcer with no active bleeding. Presently on Protonix 40 mg daily, doing better. Hemoglobin stable at 7.4 g/dL. 2. Severe anemia secondary to recent gastrointestinal bleed, presently on iron tablets. 3. Recent hip surgery two weeks ago. 4. History of hypertension. 5. Diabetes mellitus. RECOMMENDATIONS: 1. Continue Protonix 40 mg daily. 2. Avoid NSAIDs. 3. Since hemoglobin is stable, she can be discharged to rehab facility today. 4. Continue with iron supplements twice daily. 5. Monitor CBC periodically. 6. Follow up in the office with Dr. Oro in 2 weeks. Thank you for this consultation. MMODL / IJN: [id number] /
[2019-11-07] MEDS ORDERED: ERGOCALCIFEROL 50,000 UNIT CAP PO SCH (17:00)
== END 2019-11-04 16:53 | DRG 378 ==
LOC: EC 17:22 → 5NMEDONC 19:13 → OBSVTOIN 11-03 10:27
PROVIDERS: ADMIT Internal Medicine; ATTEND Internal Medicine
PROC: 0DB78ZX Excision of Stomach, Pylorus, Via Natural or Artificial Opening Endoscopic, Diagnostic (ICD-10-PCS; principal; 2019-11-02 09:30)
DX: K26.4 Chronic or unspecified duodenal ulcer with hemorrhage (principal); D62 Acute posthemorrhagic anemia; N17.9 Acute kidney failure, unspecified; N39.0 Urinary tract infection, site not specified; M51.06 Intervertebral disc disorders with myelopathy, lumbar region; E03.9 Hypothyroidism, unspecified; E11.9 Type 2 diabetes mellitus without complications; E78.5 Hyperlipidemia, unspecified; F17.200 Nicotine dependence, unspecified, uncomplicated; I10 Essential (primary) hypertension; Z20.828 Contact with and (suspected) exposure to other viral communicable diseases; G47.30 Sleep apnea, unspecified; M51.16 Intervertebral disc disorders with radiculopathy, lumbar region; K44.9 Diaphragmatic hernia without obstruction or gangrene; K29.50 Unspecified chronic gastritis without bleeding; S72.142G Displaced intertrochanteric fracture of left femur, subsequent encounter for closed fracture with delayed healing; S42.302G Unspecified fracture of shaft of humerus, left arm, subsequent encounter for fracture with delayed healing; Z79.890 Hormone replacement therapy; Z79.84 Long term (current) use of oral hypoglycemic drugs; Z79.899 Other long term (current) drug therapy; Z91.011 Allergy to milk products; Z90.710 Acquired absence of both cervix and uterus
CPT/HCPCS: 36415; 43239; 72100; 73501; 80048; 80053; 81001; 81003; 82272; 82607; 82728; 82746; 83540; 83550; 83605; 83735; 84484; 85025; 85730; 86850; 86900; 86901; 87635; 88305; 93005; 99285

== ENCOUNTER 2019-11-06 12:57 | Observation (INO) | payer MEDICARE, OTHER ==
[2019-11-06] MEDS ORDERED: SODIUM CHLORIDE 0.9% 1,000 ML IV STA (13:10)
[2019-11-06] MEDS ORDERED: PANTOPRAZOLE 40 MG/10 ML VIAL IVP STA (13:10)
--- NOTE | 2019-11-06 13:11 | ED ---
Recheck HPI - General Chief Complaint: Recheck/Abnormal Lab/Rx Stated Complaint: Low Hemoglobin Time Seen by Provider: 11/06/19 13:06 Source: patient, EMS, RN notes reviewed, old records reviewed Mode of arrival: EMS Limitations: no limitations - History of Present Illness Initial Comments: This is a 3-year-old female DF for evaluation patient to the ER for evaluation regards to weakness. Low hemoglobin outpatient lab value, bili 6.9. No active nausea vomiting diarrhea no blood in the vomit no blood in the stool. No lightheaded dizziness or any other complaints. Blood thinners patient was recently admitted for GI evaluation and discharged yesterday MD Complaint: abnormal lab (Low hemoglobin) -: unknown Returns Today for: Called Because of Abnormal Lab/Test Symptoms Since Prior Visit: no new symptoms Context: called for abnormal lab result Associated Symptoms: none - Related Data Home Medications Medication Instructions Recorded Confirmed Dulaglutide [Trulicity] 1.5 mg SQ Q10D@0810/05/16 11/06/19 Glimepiride [Amaryl] 2 mg PO DAILY@0810/05/16 11/06/19 Levothyroxine Sodium [Synthroid] 75 mcg PO MOTUWETHFRSA@0610/05/16 11/06/19 Cholecalciferol [Vitamin D3 (25 2,000 unit PO DAILY@1700 03/09/17 11/06/19 Mcg = 1000 Iu)] Ergocalciferol [Vitamin D2 50,000 unit PO Q14D@1700 03/09/17 11/06/19 (DRISDOL)] Rosuvastatin Calcium [Crestor] 40 mg PO HS@209912/11/17 11/06/19 [place]-3 Fatty Acids/Fish Oil 1 cap PO DAILY@1700 10/17/19 11/06/19 [[place]-3 Fish Oil 1,200 mg Sfgl] ALPRAZolam [Xanax] 0.25 mg PO HS PRN 10/31/19 11/06/19 Cyanocobalamin [Vitamin B-12] 1,000 mcg PO DAILY@0800 10/31/19 11/06/19 Ferrous Sulfate [Feosol] 325 mg PO TID@0800,1200,1700 10/31/19 11/06/19 Gabapentin [Neurontin] 100 mg PO BID@0800,2000 10/31/19 11/06/19 Glucerna Shake 120 ml PO BID@0800,1200 10/31/19 11/06/19 INSULIN ASPART (NovoLOG) [NovoLOG See Protocol SQ ACHS 10/31/19 11/06/19 (formulary)] Magnesium Hydroxide [Milk of 7,200 mg PO Q48H PRN 10/31/19 11/06/19 Magnesia Concentrate] Melatonin 1 mg PO HS@2100 10/31/19 11/06/19 Na Phos,M-B/Na Phos,Di-Ba [Fleet 133 ml RECTAL DAILY PRN 10/31/19 11/06/19 Adult] bisacodyL [Bisacodyl] 10 mg RECTAL DAILY PRN 10/31/19 11/06/19 Aspirin 325 mg PO BID 11/06/19 11/06/19 HYDROcodone/APAP 5-325MG [[place] 1 tab PO Q4HR PRN 11/06/19 11/06/19 5-325] Pantoprazole [Protonix] 40 mg PO BID@0800,1700 11/06/19 11/06/19 Sennosides-Docusate Sodium 2 tab PO DAILY@0800 11/06/19 11/06/19 [Senokot-S] Previous Rx's Medication Instructions Recorded Acetaminophen Tab [Tylenol] 650 mg PO Q6HR PRN tab 10/21/19 Sucralfate [Carafate] 1 gm PO ACHS tab 11/04/19 Allergies Allergy/AdvReac Type Severity Reaction Status Date / Time milk AdvReac Diarrhea Verified 11/06/19 13:35 Review of Systems ROS Statement: Those systems with pertinent positive or pertinent negative responses have been documented in the HPI. ROS Other: All systems not noted in ROS Statement are negative. Past Medical History Past Medical History: Diabetes Mellitus, Sleep Apnea/CPAP/BIPAP, Thyroid Disorder History of Any Multi-Drug Resistant Organisms: None Reported Past Surgical History: Hysterectomy, Orthopedic Surgery Past Anesthesia/Blood Transfusion Reactions: No Reported Reaction Past Psychological History: No Psychological Hx Reported Smoking Status: Current some day smoker Past Alcohol Use History: Occasional Past Drug Use History: None Reported - Past Family History Father Family Medical History: No Reported History General Exam Limitations: no limitations General appearance: alert, in no apparent distress Head exam: Present: atraumatic, normocephalic, normal inspection Eye exam: Present: normal appearance, PERRL, EOMI. Absent: scleral icterus, conjunctival injection, periorbital swelling ENT exam: Present: normal exam, mucous membranes moist Neck exam: Present: normal inspection. Absent: tenderness, meningismus, lymphadenopathy Respiratory exam: Present: normal lung sounds bilaterally. Absent: respiratory distress, wheezes, rales, rhonchi, stridor Cardiovascular Exam: Present: regular rate, normal rhythm, normal heart sounds. Absent: systolic murmur, diastolic murmur, rubs, gallop, clicks GI/Abdominal exam: Present: soft, normal bowel sounds. Absent: distended, tenderness, guarding, rebound, rigid Extremities exam: Present: normal inspection, full ROM, normal capillary refill. Absent: tenderness, pedal edema, joint swelling, calf tenderness Back exam: Present: normal inspection Neurological exam: Present: alert, oriented X3, CN II-XII intact Psychiatric exam: Present: normal affect, normal mood Skin exam: Present: warm, dry, intact, normal color. Absent: rash Course Vital Signs 11/06/19 12:58 Temperature 97.6 F Pulse Rate 67 Respiratory 17 Rate Blood Pressure 179/75 O2 Sat by Pulse 100 Oximetry - Reevaluation(s) Reevaluation #1: 11/06/19 13:48 Medical records reviewed 11/06/19 13:48 Prior evaluation is reviewed Reevaluation #2: 11/06/19 14:40 Decision is made to transfuse secondary to marginal hemoglobin Medical Decision Making - Medical Decision Making 83 female will admit for transfusion, recent admission for GI evaluation - Lab Data Result diagrams: 11/06/19 13:40 11/06/19 13:40 Lab Results 11/06/19 11/06/19 11/06/19 Range/Units 13:40 13:40 13:40 WBC 5.0 (3.8-10.6) k/uL RBC 2.55 L (3.80-5.40) m/uL Hgb 7.1 L (11.4-16.0) gm/dL Hct 22.7 L (34.0-46.0) % MCV 88.8 (80.0-100.0) fL MCH 27.9 (25.0-35.0) pg MCHC 31.4 (31.0-37.0) g/dL RDW 15.9 H (11.5-15.5) % Plt Count 554 H (150-450) k/uL Neutrophils % 74 % Lymphocytes % 16 % Monocytes % 5 % Eosinophils % 3 % Basophils % 0 % Neutrophils # 3.7 (1.3-7.7) k/uL Lymphocytes # 0.8 L (1.0-4.8) k/uL Monocytes # 0.2 (0-1.0) k/uL Eosinophils # 0.2 (0-0.7) k/uL Basophils # 0.0 (0-0.2) k/uL Hypochromasia Slight PT 9.4 (9.0-12.0) sec INR 0.9 (<1.2) APTT 25.1 (22.0-30.0) sec Sodium 136 L (137-145) mmol/L Potassium 4.0 (3.5-5.1) mmol/L Chloride 106 (98-107) mmol/L Carbon Dioxide 23 (22-30) mmol/L Anion Gap 7 mmol/L BUN 15 (7-17) mg/dL Creatinine 1.07 H (0.52-1.04) mg/dL Est GFR (CKD-EPI)AfAm 55 (>60 ml/min/1.73 sqM) Est GFR (CKD-EPI)NonAf 48 (>60 ml/min/1.73 sqM) Glucose 189 H (74-99) mg/dL Calcium 8.8 (8.4-10.2) mg/dL Phosphorus 3.8 (2.5-4.5) mg/dL Magnesium 2.0 (1.6-2.3) mg/dL Total Bilirubin 0.3 (0.2-1.3) mg/dL AST 34 (14-36) U/L ALT 24 (4-34) U/L Alkaline Phosphatase 125 (38-126) U/L Troponin I (0.000-0.034) ng/mL Total Protein 5.8 L (6.3-8.2) g/dL Albumin 3.3 L (3.5-5.0) g/dL Lipase 567 H (23-300) U/L 11/05/ Range/Units 13:40 WBC (3.8-10.6) k/uL RBC (3.80-5.40) m/uL Hgb (11.4-16.0) gm/dL Hct (34.0-46.0) % MCV (80.0-100.0) fL MCH (25.0-35.0) pg MCHC (31.0-37.0) g/dL RDW (11.5-15.5) % Plt Count (150-450) k/uL Neutrophils % % Lymphocytes % % Monocytes % % Eosinophils % % Basophils % % Neutrophils # (1.3-7.7) k/uL Lymphocytes # (1.0-4.8) k/uL Monocytes # (0-1.0) k/uL Eosinophils # (0-0.7) k/uL Basophils # (0-0.2) k/uL Hypochromasia PT (9.0-12.0) sec INR (<1.2) APTT (22.0-30.0) sec Sodium (137-145) mmol/L Potassium (3.5-5.1) mmol/L Chloride (98-107) mmol/L Carbon Dioxide (22-30) mmol/L Anion Gap mmol/L BUN (7-17) mg/dL Creatinine (0.52-1.04) mg/dL Est GFR (CKD-EPI)AfAm (>60 ml/min/1.73 sqM) Est GFR (CKD-EPI)NonAf (>60 ml/min/1.73 sqM) Glucose (74-99) mg/dL Calcium (8.4-10.2) mg/dL Phosphorus (2.5-4.5) mg/dL Magnesium (1.6-2.3) mg/dL Total Bilirubin (0.2-1.3) mg/dL AST (14-36) U/L ALT (4-34) U/L Alkaline Phosphatase (38-126) U/L Troponin I 0.024 (0.000-0.034) ng/mL Total Protein (6.3-8.2) g/dL Albumin (3.5-5.0) g/dL Lipase (23-300) U/L Disposition Clinical Impression: Anemia, GI bleed Disposition: ADMITTED IP TO THIS [facility] Condition: Fair Is patient prescribed a controlled substance at d/c from ED?: No Referrals: Soumagnos,Soren, DO [Primary Care Provider] - 1-2 days
[2019-11-06 13:57] LABS: Basophils % (A) 0 %; Eosinophils # (A) 0.2 k/uL (0-0.7); Eosinophils % (A) 3 %; HCT 22.7 % (34.0-46.0); HGB 7.1 gm/dL (11.4-16.0); Hypochromasia Slight; Lymphocytes # (A) 0.8 k/uL (1.0-4.8); Lymphocytes % (A) 16 %; MCH 27.9 pg (25.0-35.0); MCHC 31.4 g/dL (31.0-37.0); MCV 88.8 fL (80.0-100.0); Mean Platelet Volume 6.9; Monocytes # (A) 0.2 k/uL (0-1.0); Monocytes % (A) 5 %; Neutrophils # (A) 3.7 k/uL (1.3-7.7); Neutrophils % (A) 74 %; Platelet Count 554 k/uL (150-450); RBC 2.55 m/uL (3.80-5.40); RDW 15.9 % (11.5-15.5)
[2019-11-06 14:07] LABS: Albumin 3.3 g/dL (3.5-5.0); Calcium 8.8 mg/dL (8.4-10.2); Phosphorus 3.8 mg/dL (2.5-4.5); Total Bilirubin 0.3 mg/dL (0.2-1.3); Total Protein 5.8 g/dL (6.3-8.2)
[2019-11-06 14:22] LABS: INR 0.9 (<1.2); Partial Thromboplastin Time 25.1 sec (22.0-30.0); Prothrombin Time 9.4 sec (9.0-12.0)
[2019-11-06 16:17] VITALS: RESP 16
[2019-11-06 17:42] LABS: Glucose,Whole Blood 121 mg/dL (75-99)
[2019-11-06] MEDS ORDERED: bisacodyL 10 MG SUPP RECTAL PRN (18:25)
[2019-11-06] MEDS ORDERED: MAGNESIUM HYDROXIDE 2,400 MG/10 ML CUP PO PRN (18:25)
[2019-11-06] MEDS ORDERED: HYDROcodone/APAP 5-325MG 1 EACH TAB PO PRN (18:25)
[2019-11-06] MEDS ORDERED: ALPRAZolam 0.25 MG TAB PO PRN (18:25)
[2019-11-06] MEDS ORDERED: NA PHOS,M-B/NA PHOS,DI-BA 133 ML ENEMA RECTAL PRN (18:25)
[2019-11-06] MEDS ORDERED: ACETAMINOPHEN TAB 325 MG TAB PO PRN (18:25)
--- NOTE | 2019-11-06 19:10 | XR ---
EXAMINATION TYPE: XR chest 1V portable DATE OF EXAM: 11/06/2019 COMPARISON: 10/17/2019 HISTORY: Abnormal hemoglobin. Short of breath. TECHNIQUE: FINDINGS: There is no heart failure nor confluent pneumonic infiltrate. There is small linear density left lung base. There are no hilar masses. Bony thorax is intact. IMPRESSION: Mild subsegmental atelectasis left lung base is improved compared to last exam. No heart failure.
[2019-11-06] MEDS: PANTOPRAZOLE 40 MG/10 ML VIAL IVP SCH (20:08)
[2019-11-06] MEDS: HEPARIN SODIUM,PORCINE 5,000 UNIT/ML 1 ML VIAL SQ SCH (20:08)
[2019-11-06] MEDS: GABAPENTIN 100 MG CAP PO SCH (20:08)
[2019-11-06] MEDS: SUCRALFATE 1 GM TAB PO SCH (20:08)
[2019-11-06 20:09] LABS: Glucose,Whole Blood 148 mg/dL (75-99)
[2019-11-06] MEDS: INSULIN ASPART (NovoLOG) 100 UNIT/ML VIAL SQ SCH (20:17)
[2019-11-06] MEDS ORDERED: hydrALAZINE HCL 20 MG/ML 1 ML VIAL IVP PRN (20:28)
[2019-11-06 20:59] LABS: Amylase 91 U/L (30-110)
[2019-11-06] MEDS ORDERED: ATORVASTATIN 80 MG TAB PO SCH (21:00)
[2019-11-06] MEDS ORDERED: MELATONIN 1 MG TAB PO SCH (21:00)
--- NOTE | 2019-11-06 22:46 | HP ---
HISTORY AND PHYSICAL DATE OF SERVICE: 11/06/2019 CHIEF COMPLAINT: Anemia. HISTORY OF PRESENT ILLNESS: This 83-year-old woman with a past medical history of multiple medical problems, including history of diabetes mellitus, sleep apnea, hypothyroidism, was recently admitted to [facility]. The patient had multiple surgeries with a fall and left humerus and left hip fracture, and intertrochanteric nail placement was done by Orthopedic Surgery on 10/[address] Thornton, but subsequently the patient had GI bleeding. Endoscopy showed gastric ulcer. The patient was treated symptomatically. The patient is being closely monitored at this time. The hemoglobin was fluctuating between 6.8 and 7.1, and today the hemoglobin was found to be 7.1. The patient was complaining of some weakness. Because of that reason, the patient was sent to [facility] for symptomatic anemia. There is no history of any fever, rigor or chills. No history of headache, loss of consciousness, seizures. PAST MEDICAL HISTORY: History of recent left hip surgery, history of diabetes mellitus, type 2, history of sleep apnea, hypothyroidism, hysterectomy. HOME MEDICATIONS: Reviewed. They include Xanax, Tylenol, [place], bisacodyl, Senokot S, Fleets, milk of magnesia, Carafate, NovoLog scale, Protonix, iron sulfate, Glucerna shake, Neurontin, aspirin, Trulicity, vitamin B12, Synthroid, omega-3 fatty acids, melatonin, Amaryl, Crestor, Drisdol, vitamin D3. Doses were reviewed. ALLERGIES: SODIUM CHLORIDE. FAMILY HISTORY: No history of heart disease or strokes in the family. SOCIAL HISTORY: No current smoking or alcohol intake. Previous history of smoking. REVIEW OF SYSTEMS: ENT: Diminished hearing. Diminished vision. CARDIOVASCULAR SYSTEM: No angina, palpitations. RESPIRATORY SYSTEM: As mentioned earlier. GI: As mentioned earlier. : No dysuria or retention. NERVOUS SYSTEM: No numbness, weakness. ALLERGY/IMMUNOLOGY: No asthma, hayfever. MUSCULOSKELETAL: As mentioned earlier. HEMATOLOGY/ONCOLOGY: No history of anemia. ENDOCRINE: As mentioned earlier. CONSTITUTIONAL: As mentioned earlier. DERMATOLOGY: Negative. RHEUMATOLOGY: Negative. PSYCHIATRY: As mentioned earlier. PHYSICAL EXAMINATION: Patient alert and oriented x3. Pulse is 61, blood pressure 179/71, respiration 16, temperature 97.1, pulse ox 97% on room air. HEENT: Conjunctivae pale. Oral mucosa pale. NECK: No jugular venous distention. No carotid bruit. No lymph node enlargement. CARDIOVASCULAR SYSTEM: S1, S2 muffled. Ejection systolic murmur present. RESPIRATORY SYSTEM: Breath sounds diminished at the bases. No rhonchi. No crackles. ABDOMEN: Soft, non-tender. No mass palpable. LEGS: Status post recent surgery. NERVOUS SYSTEM: Higher functions as mentioned earlier. Moves all 4 limbs. No focal motor or sensory deficit. LYMPHATICS: No lymph node palpable in neck, axillae or groin. SKIN: As mentioned earlier. JOINTS: As mentioned earlier. LABS: WBC 5, hemoglobin 7.1, sodium 136. ASSESSMENT: 1. Anemia with acute on chronic gastrointestinal blood loss with acute blood loss anemia, symptomatic, secondary to duodenal ulcer. 2. History of recent left hip fracture and intertrochanteric nail placement as well as left humerus fracture. 3. Increased platelets. 4. Hyponatremia. 5. Increased creatinine with mild acute renal failure. 6. Elevated lipase. Rule out acute pancreatitis. 7. History of diabetes mellitus, type 2. 8. Sleep apnea. 9. Hypothyroidism. 10.History of hysterectomy. 11.Remote history of nicotine dependence. RECOMMENDATIONS AND DISCUSSION: In this 83-year-old woman who presented with multiple complex medical issues, at this time I recommend to continue the current medications, continue with symptomatic treatment. Otherwise at this time I recommend one unit transfusion. Repeat labs in the morning. Otherwise, I would also recommend holding NSAIDs, including aspirin, and continue to monitor. Prognosis guarded. Further recommendations to follow. A copy of this dictation is being forwarded to Dr. Kelly, who is the primary physician. MMODL / IJN: [id number] /
[2019-11-07] MEDS ORDERED: LEVOTHYROXINE 75 MCG TAB PO SCH (06:00)
[2019-11-07 07:02] LABS: Glucose,Whole Blood 99 mg/dL (75-99)
[2019-11-07] MEDS: INSULIN ASPART (NovoLOG) 100 UNIT/ML VIAL SQ SCH ×2 (07:16→12:46)
[2019-11-07 07:49] LABS: Basophils % (A) 1 %; Eosinophils # (A) 0.2 k/uL (0-0.7); Eosinophils % (A) 4 %; HCT 28.4 % (34.0-46.0); Hypochromasia Slight; Lymphocytes % (A) 19 %; MCH 28.3 pg (25.0-35.0); MCHC 32.3 g/dL (31.0-37.0); MCV 87.5 fL (80.0-100.0); Monocytes # (A) 0.4 k/uL (0-1.0); Monocytes % (A) 7 %; Neutrophils # (A) 3.6 k/uL (1.3-7.7); Neutrophils % (A) 68 %; Platelet Count 516 k/uL (150-450); Poikilocytosis Slight; RBC 3.25 m/uL (3.80-5.40); WBC 5.3 k/uL (3.8-10.6)
[2019-11-07 07:50] LABS: HGB 9.2 gm/dL (11.4-16.0)
[2019-11-07 07:55] LABS: Calcium 8.8 mg/dL (8.4-10.2); Potassium 3.8 mmol/L (3.5-5.1)
[2019-11-07] MEDS ORDERED: CYANOCOBALAMIN 500 MCG TAB PO SCH (08:00)
[2019-11-07] MEDS: SUCRALFATE 1 GM TAB PO SCH ×2 (08:00→12:46)
[2019-11-07] MEDS: GABAPENTIN 100 MG CAP PO SCH (08:00)
[2019-11-07] MEDS ORDERED: GLIMEPIRIDE 2 MG TAB PO SCH (08:00)
[2019-11-07] MEDS ORDERED: SENNOSIDES-DOCUSATE SODIUM 1 EACH TAB PO SCH (08:00)
[2019-11-07] MEDS ORDERED: NON FORMULARY DRUG (Glucerna Shake 120 ML) PO SCH (08:00)
[2019-11-07] MEDS: HEPARIN SODIUM,PORCINE 5,000 UNIT/ML 1 ML VIAL SQ SCH (08:01)
[2019-11-07] MEDS: PANTOPRAZOLE 40 MG/10 ML VIAL IVP SCH (08:01)
[2019-11-07 11:22] LABS: Glucose,Whole Blood 161 mg/dL (75-99)
[2019-11-07 11:50] VITALS: BP 169/75; PULSE 82; TEMP 98
--- NOTE | 2019-11-07 12:44 | P.DS ---
Providers Date of admission: 11/06/19 16:32 Expected date of discharge: 11/07/19 Attending physician: Tim Hester Primary care physician: Soren Kelly [facility] Course: Final diagnosis Anemia with acute on chronic gastrointestinal blood loss with acute blood loss anemia, symptomatic, secondary to duodenal ulcer History of recent left hip fracture and intertrochanteric nail placement as well as left humerus fracture Increased platelets Hyponatremia Increased creatinine with mild acute renal failure Elevated lipase. Rule out acute pancreatitis History of diabetes mellitus type 2 Sleep apnea Hypothyroidism history of hysterectomy remote history of nicotine dependence Discharge disposition Patient is being discharged in a stable condition with guarded prognosis to [facility]. Patient will follow-up with Dr. Kelly upon discharge. Patient will continue with heparin 5000 units subcu twice daily until more ambulatory. Aspirin has been discontinued. Patient will continue with Protonix 40 mg twice daily. Patient to resume ferrous sulfate once daily. Total time taken is greater than 35 minutes. History of present illness This is an 83-year-old female who was recently admitted with symptomatic anemia and was being closely monitored. Patient recently underwent a fall with left humerus and left hip fracture and intertrochanteric nail placement this past September with orthopedic surgery and was at rehab. Patient was also having some GI bleeding and recently underwent endoscopy showing gastric ulcer. Patient was maintained on subcu heparin along with aspirin 325 mg twice daily. Patient will continue with heparin 5000 units subcutaneous twice daily until more ambulatory. Patient will also continue with ferrous sulfate once daily starting in one week. Patient's hemoglobin on admission was found to be 7.1. Patient received 1 unit of PRBCs. Hemoglobin today is 9.2. Prescription provided to monitor CBC in a few days. Currently no reports of chest pain, shortness of breath, or palpitations. Patient is afebrile. No reports of nausea or vomiting and patient is tolerating diet. Guarded prognosis. On exam vital signs are stable. Temp is 98.0F, pulse is 82, respirations are 16, blood pressure is 169/75, oxygen saturation is 93% on room air. Cardio S1, S2 are muffled. Respiratory shows diminished breath sounds at the bases with a few scattered rhonchi noted. Abdomen is soft and nontender. Nervous system shows mild diffuse weakness. Please refer to medication reconciliation sheet for a list of medications. Patient Condition at Discharge: Fair Plan - Discharge Summary Discharge Rx Participant: Yes New Discharge Prescriptions: New Heparin Sodium,Porcine [Heparin Sodium] 5,000 unit SQ Q12HR vial Continue Levothyroxine Sodium [Synthroid] 75 mcg PO MOTUWETHFRSA@0600 Glimepiride [Amaryl] 2 mg PO DAILY@0800 Dulaglutide [Trulicity] 1.5 mg SQ Q10D@0800 Ergocalciferol [Vitamin D2 (DRISDOL)] 50,000 unit PO Q14D@1700 Cholecalciferol [Vitamin D3 (25 Mcg = 1000 Iu)] 2,000 unit PO DAILY@1700 Rosuvastatin Calcium [Crestor] 40 mg PO HS@2100 [place]-3 Fatty Acids/Fish Oil [[place]-3 Fish Oil 1,200 mg Sfgl] 1 cap PO DAILY@1700 Acetaminophen Tab [Tylenol] 650 mg PO Q6HR PRN tab PRN Reason: Mild Pain Or Fever > 100.5 Magnesium Hydroxide [Milk of Magnesia Concentrate] 7,200 mg PO Q48H PRN PRN Reason: Constipation bisacodyL [Bisacodyl] 10 mg RECTAL DAILY PRN PRN Reason: Constipation Na Phos,M-B/Na Phos,Di-Ba [Fleet Adult] 133 ml RECTAL DAILY PRN PRN Reason: Constipation INSULIN ASPART (NovoLOG) [NovoLOG (formulary)] See Protocol SQ ACHS Glucerna Shake 120 ml PO BID@0800,1200 Cyanocobalamin [Vitamin B-12] 1,000 mcg PO DAILY@0800 Melatonin 1 mg PO HS@2100 Sucralfate [Carafate] 1 gm PO ACHS tab Pantoprazole [Protonix] 40 mg PO BID@0800,1700 Sennosides-Docusate Sodium [Senokot-S] 2 tab PO DAILY@0800 Gabapentin [Neurontin] 100 mg PO BID@0800,2000 #6 cap HYDROcodone/APAP 5-325MG [[place] 5-325] 1 tab PO Q4HR PRN #10 tab PRN Reason: Pain ALPRAZolam [Xanax] 0.25 mg PO HS PRN #4 tab PRN Reason: Anxiety Changed Ferrous Sulfate [Feosol] 325 mg PO DAILY #0 Discontinued Aspirin 325 mg PO BID Discharge Medication List Dulaglutide [Trulicity] 1.5 mg SQ Q10D@0800 10/05/16 [History] Glimepiride [Amaryl] 2 mg PO DAILY@0800 10/05/16 [History] Levothyroxine Sodium [Synthroid] 75 mcg PO MOTUWETHFRSA@0610/05/16 [History] Cholecalciferol [Vitamin D3 (25 Mcg = 1000 Iu)] 2,000 unit PO DAILY@1700 03/09/17 [History] Ergocalciferol [Vitamin D2 (DRISDOL)] 50,000 unit PO Q14D@17003/09/17 [History] Rosuvastatin Calcium [Crestor] 40 mg PO HS@2100 12/11/17 [History] [place]-3 Fatty Acids/Fish Oil [[place]-3 Fish Oil 1,200 mg Sfgl] 1 cap PO DAILY@1700 10/17/19 [History] Acetaminophen Tab [Tylenol] 650 mg PO Q6HR PRN tab 10/21/19 [Rx] Cyanocobalamin [Vitamin B-12] 1,000 mcg PO DAILY@0800 10/31/19 [History] Glucerna Shake 120 ml PO BID@0800,1200 10/31/19 [History] INSULIN ASPART (NovoLOG) [NovoLOG (formulary)] See Protocol SQ ACHS 10/31/19 [History] Magnesium Hydroxide [Milk of Magnesia Concentrate] 7,200 mg PO Q48H PRN 10/31/19 [History] Melatonin 1 mg PO HS@2100 10/31/19 [History] Na Phos,M-B/Na Phos,Di-Ba [Fleet Adult] 133 ml RECTAL DAILY PRN 10/31/19 [History] bisacodyL [Bisacodyl] 10 mg RECTAL DAILY PRN 10/31/19 [History] Sucralfate [Carafate] 1 gm PO ACHS tab 11/04/19 [Rx] Pantoprazole [Protonix] 40 mg PO BID@0800,1700 11/06/19 [History] Sennosides-Docusate Sodium [Senokot-S] 2 tab PO DAILY@0800 11/06/19 [History] ALPRAZolam [Xanax] 0.25 mg PO HS PRN #4 tab 11/07/19 [Rx] Ferrous Sulfate [Feosol] 325 mg PO DAILY #0 11/07/19 [Rx] Gabapentin [Neurontin] 100 mg PO BID@0800,1999 #6 cap 11/07/19 [Rx] HYDROcodone/APAP 5-325MG [[place] 5-325] 1 tab PO Q4HR PRN #10 tab 11/07/19 [Rx] Heparin Sodium,Porcine [Heparin Sodium] 5,000 unit SQ Q12HR vial 11/07/19 [Rx] Follow up Appointment(s)/Referral(s): Soren Kelly DO [Primary Care Provider] - 1-2 days Ambulatory/Diagnostic Orders: Complete Blood Count w/diff [LAB.AMB] Time Frame: 3 Days, Location: None Selected Activity/Diet/Wound Care/Special Instructions: Patient is going to [facility] Activity as tolerated Continue current diet Continue monitoring blood sugars before meals at bedtime and treat accordingly Aspirin has been discontinued Resume ferrous sulfate 325 mg daily in one week on 11/14/2019 Continue with heparin 5000 units subcutaneous twice daily until patient is more ambulatory Repeat CBC in 2-3 days to monitor hemoglobin Discharge Disposition: TRANSFER TO SNF/ECF
[2019-11-07] MEDS ORDERED: FISH OIL PO SCH (17:00)
[2019-11-07] MEDS ORDERED: OMEGA PO SCH (17:00)
[2019-11-07] MEDS ORDERED: CHOLECALCIFEROL 1,000 UNIT TAB PO SCH (17:00)
[2019-11-07] MEDS ORDERED: FATTY ACIDS PO SCH (17:00)
[2019-11-07] MEDS ORDERED: [UNRECOGNIZED DRUG - OTHER] PO SCH (17:00)
[2019-11-16] MEDS ORDERED: NON FORMULARY DRUG (Dulaglutide [Trulicity] 1.5 MG) SQ SCH (08:00)
== END 2019-11-07 14:39 ==
LOC: EC 12:57 → 5NMEDONC 16:32
PROVIDERS: ADMIT Hospitalist; ATTEND Hospitalist
DX: D62 Acute posthemorrhagic anemia (principal); K26.4 Chronic or unspecified duodenal ulcer with hemorrhage; S72.002D Fracture of unspecified part of neck of left femur, subsequent encounter for closed fracture with routine healing; S42.302D Unspecified fracture of shaft of humerus, left arm, subsequent encounter for fracture with routine healing; D47.3 Essential (hemorrhagic) thrombocythemia; E87.1 Hypo-osmolality and hyponatremia; N17.9 Acute kidney failure, unspecified; R74.8 Abnormal levels of other serum enzymes; E11.9 Type 2 diabetes mellitus without complications; G47.30 Sleep apnea, unspecified; E03.9 Hypothyroidism, unspecified; Z20.828 Contact with and (suspected) exposure to other viral communicable diseases; Z79.899 Other long term (current) drug therapy; Z79.890 Hormone replacement therapy; Z79.4 Long term (current) use of insulin; Z79.82 Long term (current) use of aspirin; Z91.011 Allergy to milk products; Z99.89 Dependence on other enabling machines and devices; Z90.710 Acquired absence of both cervix and uterus; Z98.890 Other specified postprocedural states; Z87.891 Personal history of nicotine dependence; Z91.02 Food additives allergy status; W19.XXXD Unspecified fall, subsequent encounter
CPT/HCPCS: 96376 ×2; 96372 ×2; 96375; 96374; 99285; 36415; 86900; 86901; 80061; 80053; 80048; 82150; 83690; 83735; 84100; 84484; 85025 ×2; 85610; 85730; 86850; 86920; 87635; 71045; G0378 ×2; P9016; J0360; J1644 ×2; C9113 ×2

== ENCOUNTER → 2020-04-15 | Outpatient (CLI) | payer MEDICARE, OTHER ==
--- NOTE | 2020-04-15 15:24 | CONS ---
CONSULTATION DATE OF SERVICE: 04/15/2020 This 84-year-old lady has been [facility] for obstructive sleep apnea- hypopnea syndrome. HISTORY OF PRESENT ILLNESS/SLEEP-WAKE EVALUATION: Patient has history of obstructive sleep apnea for many years. Last sleep study was about 10 years ago. She continued to use her CPAP equipment every night for the whole night. Her usual sleep schedule basically 7 days a week from 1 a.m. to 7:38 a.m. No significant problem with falling asleep. No TV in bedroom. She usually sleeps on the back position. With the machine, she usually does not snore. She may wake up 1-2 times at night with up to one episode of nocturia. In the morning she wakes up tired, sometimes takes one nap about 3 p.m. [place] Sleepiness Scale is 8, which is a normal range. No history of hypnagogic hallucinations, sleep paralysis or cataplexy. PAST MEDICAL HISTORY: Positive for diabetes mellitus type 2, thyroid nodules, hyperlipidemia, acid reflux, arthritis. History of COVID in January 2020. PAST SURGICAL HISTORY: Cholecystectomy, hysterectomy, left shoulder surgery for broken shoulder and left hip fracture treated surgically last year, pin insertion. MEDICATIONS: Trulicity 1.5 mg once in 10 days, metformin 1000 mg twice a day, Glimepiride 2 mg once a day, levothyroxine 75 mcg once a day for 6 days a week, Drisdol vitamin D biweekly, multivitamins, rosuvastatin 40 mg once a day, pantoprazole 40 mg once a day. SOCIAL HISTORY: Negative for smoking or using alcohol. FAMILY HISTORY: Positive for heart problems, angina. REVIEW OF SYSTEMS: Occasional awakenings from sleep. PHYSICAL EXAMINATION: GENERAL: lady without distress. VITAL SIGNS: BP 150/80, HR 63, RR 12, height 5 feet 2 inches, weight 112.6, BMI 21.5, oxygen saturation at room air 100%. HEENT: PERRLA, EOMI. Oropharynx low position of soft palate, Mallampati 3-4. NECK: 13 inches in circumference. LUNGS: Clear to percussion and to auscultation. Good air exchange. No wheezing or rhonchi. HEART: S1, S2 regular. No murmurs, gallops, or rubs. ABDOMEN: Soft and nontender. Bowel sounds are present. No organomegaly appreciated. EXTREMITIES: No clubbing or cyanosis. GRAPHIC ENGINEER: Awake, alert, and oriented X3. Cranial nerves 2 to 7 intact. There is no fasciculation or atrophy. noted. No focal deficits observed. IMPRESSION: 1. Obstructive sleep apnea-hypopnea syndrome for many years. I checked the patient's CPAP unit. Usage is 100% of nights, average 6.54 hours per night. Range of the pressure from 4-8. The machine does not have information about apnea-hypopnea index, machine is old. Extremely low position of soft palate. Mallampati 3-4. Obstructive sleep apnea-hypopnea syndrome. 2. History of COVID-19 in January 2020. 3. Hypertension in the office, otherwise, no increasing blood pressure. 4. Diabetes mellitus type 2. 5. Thyroid nodule. 6. Hyperlipidemia. 7. Acid reflux. 8. History of arthritis. 9. Status post cholecystectomy. 10.Status post hysterectomy. 11.Status post broken left shoulder, treated surgically. 12.Status post left hip fracture treated surgically by a pin insertion in the middle of last year. PLAN: 1. Prescription to replace CPAP unit. 2. I will see patient for follow-up visit in about 6 to 8 weeks to evaluate her clinical response on treatment, compliance with treatment and to check apnea- hypopnea index reading from new CPAP unit. 3. Sleep hygiene with regular time in bed for at least 7-1/2 hours. 4. Precautions related to driving. No driving if feeling any sleepiness. Thank you very much for allowing me to participate in management of your patient. Sincerely, Kit Quintanilla MD, PhD, FAASM Diplomat of [place] [employer] [place] [employer] [facility] [place] MMODL / IJN: [id number] /
== END | disposition home or self-care (01) ==
LOC: SLEEP 10:54
PROVIDERS: ATTEND Internal Medicine
DX: G47.33 Obstructive sleep apnea (adult) (pediatric) (principal); I10 Essential (primary) hypertension; E11.9 Type 2 diabetes mellitus without complications; E04.1 Nontoxic single thyroid nodule; E78.5 Hyperlipidemia, unspecified; M19.90 Unspecified osteoarthritis, unspecified site; K21.9 Gastro-esophageal reflux disease without esophagitis; Z86.16 Personal history of COVID-19; Z90.49 Acquired absence of other specified parts of digestive tract; Z99.89 Dependence on other enabling machines and devices; Z79.899 Other long term (current) drug therapy; Z79.84 Long term (current) use of oral hypoglycemic drugs; Z79.890 Hormone replacement therapy; Z90.710 Acquired absence of both cervix and uterus
CPT/HCPCS: 99211

== ENCOUNTER → 2021-02-08 | Outpatient (CLI) | payer MEDICARE, OTHER ==
--- NOTE | 2021-02-08 16:17 | US ---
EXAMINATION TYPE: US thyroid st tissue head/neck DATE OF EXAM: 02/08/2021 COMPARISON: 08/28/19 CLINICAL HISTORY: 85-year-old female E04.1 Thyroid nodule. TECHNIQUE: Multiple sonographic images of the thyroid gland are obtained. FINDINGS: GLAND SIZE: Right Lobe: 2.6x1.1x1.0 cm Overall Parenchyma: homogenous Left Lobe: 2.9x1.5x1.3 cm Overall Parenchyma: homogeneous Isthmus Thickness: 0.2 cm NODULES RIGHT: # of nodules measured on right: 0 LEFT: # of nodules measured on left: 1 1. 1.5 X 1.1 x 0.9 cm, heterogeneous, primarily solid hypoechoic nodule, which is wider than tall, with smooth margins, without echogenic foci. Prior size: 1.6 x 1.1 x 1.1 cm ISTHMUS: # of nodules measured in the isthmus: 0 Bilateral neck scanned, no evidence of lymphadenopathy. IMPRESSION: Small heterogeneous thyroid gland. Solitary 1.5 x 1.1 cm nodule in the left lobe (relatively stable c ompared to 1.6 x 1.1 cm, previously)
== END | disposition home or self-care (01) ==
LOC: RADUSWWP 14:19
PROVIDERS: ATTEND Family Medicine
DX: E04.1 Nontoxic single thyroid nodule (principal)
CPT/HCPCS: 76536

== ENCOUNTER → 2022-01-11 | Outpatient (CLI) | payer MEDICARE ==
--- NOTE | 2022-01-11 15:49 | US ---
EXAMINATION TYPE: US carotid duplex BILAT DATE OF EXAM: 01/11/2022 COMPARISON: Thyroid ultrasound 02/06/2021. CLINICAL HISTORY: I65.23 CAROTID STENOSIS B. Stenosis per order. Hx TIA. Lightheadedness, diabetes, h yperlipidemia. TECHNIQUE: Carotid duplex ultrasound examination. Indirect Doppler criteria was utilized. 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 Plaque seen within bilatera l bulbs. Incidental finding: hypoechoic nodule seen within left thyroid lobe measuring 1.7 x 1.2 x 1.3 cm. Thi s is relatively stable from prior ultrasound. IMPRESSION: 1. Mild to moderate atherosclerotic plaque within both carotid bulbs with 50-69% stenosis at the fidelina gin of the left internal carotid artery. Less than 50% stenosis at the origin of the right internal c arotid artery. 2. Stable hypoechoic left thyroid lobe nodule. Criteria for Assigning % of Stenosis / Diameter reduction (Estimation based on the indirect measurements of the internal carotid artery velocities (ICA PSV). 1. Normal (no stenosis)=ICA PSV < 125 cm/s: ratio < 2.0: ICA EDV<40 cm/s. 2. Less than 50% stenosis=ICA PSV < 125 cm/s: ratio < 2.0: ICA EDV<40 cm/s. 3. 50 to 69% stenosis=ICA PSV of 125 to 230 cm/s: ration 2.0 ? 4.0: ICA EDV 40-100 cm/s. 4. Greater than 70% stenosis to near occlusion= ICA PSV > 230 cm/s: ratio > 4.0: ICA EDV > 100 cm/s. 5. Near occlusion= ICA PSV velocities may be low or undetectable: variable ratio and ICA EDV. 6. Total occlusion=unable to detect flow.
--- NOTE | 2022-01-12 11:53 | CA ---
Transthoracic Echo Report Name: Nabila Mcclelland Age: 86 Gender: F : 1935 Exam Date: 01/11/2022 14:30 Exam Location: [facility] Ht (in): 61 Wt (lb): 128 Ordering Physician: Faustina De León MD Attending/Referring Phys: Faustina De León MD Talent Partner Jimena Tripathi RDCS Procedure CPT: Indications: I25.119, I65.23 Cardiac Hx: Technical Quality: Fair Contrast 1: Total Dose (mL): Contrast 2: Total Dose (mL): MEASUREMENTS (Male / Female) Normal Values 2D ECHO LV Diastolic Diameter PLAX 3.4 cm 4.2 - 5.9 / 3.9 - 5.3 cm LV Systolic Diameter PLAX 1.6 cm IVS Diastolic Thickness 1.5 cm 0.6 - 1.0 / 0.6 - 0.9 cm LVPW Diastolic Thickness 1.6 cm 0.6 - 1.0 / 0.6 - 0.9 cm LV Relative Wall Thickness 0.9 RV Internal Dim ED PLAX 2.1 cm LA Volume 46.3 cm??? 18 - 58 / 22 - 52 cm??? M-MODE Aortic Root Diameter MM 2.8 cm LA Systolic Diameter MM 3.9 cm LA Ao Ratio MM 1.4 AV Cusp Separation MM 1.6 cm DOPPLER AV Peak Velocity 169.8 cm/s AV Peak Gradient 11.5 mmHg LVOT Peak Velocity 112.0 cm/s LVOT Peak Gradient 5.0 mmHg MV Area PHT 1.8 cm??? Mitral E Point Velocity 57.8 cm/s Mitral A Point Velocity 112.8 cm/s Mitral E to A Ratio 0.5 MV Deceleration Time 425.2 ms MV E' Velocity 6.3 cm/s Mitral E to MV E' Ratio 9.2 TR Peak Velocity 157.8 cm/s TR Peak Gradient 10.0 mmHg Right Ventricular Systolic Press 15.0 mmHg FINDINGS Left Ventricle Moderately increased left ventricular wall thickness. Normal left ventricular systolic function with no obvious regional wall motion abnormalities. Left ventricular ejection fraction is estimated at 55-60 %. Right Ventricle Right ventricle not well visualized. Right Atrium Right atrium not well visualized. Left Atrium Normal left atrial size. No evidence for an atrial septal defect. Mitral Valve Mild mitral annular calcification. Mitral valve thickened. No mitral stenosis. Mild mitral regurgitation. Aortic Valve No aortic valve stenosis or regurgitation. Aortic valve sclerosis. Tricuspid Valve Structurally normal tricuspid valve. Mild tricuspid regurgitation. Pulmonic Valve Trace pulmonic regurgitation. Pericardium No pericardial effusion. Aorta Normal size aortic root and proximal ascending aorta. CONCLUSIONS LVH with preserved systolic function Previewed by: Dr. Ricardo Moctezuma MD (Electronically Signed) Final Date: 12 January 2022 11:52
== END ==
LOC: RADECHMAIN 14:12
PROVIDERS: ATTEND Internal Medicine
DX: I25.119 Atherosclerotic heart disease of native coronary artery with unspecified angina pectoris (principal); I65.23 Occlusion and stenosis of bilateral carotid arteries; E04.1 Nontoxic single thyroid nodule; E11.9 Type 2 diabetes mellitus without complications; E78.5 Hyperlipidemia, unspecified; Z86.73 Personal history of transient ischemic attack (TIA), and cerebral infarction without residual deficits
CPT/HCPCS: 93306; 93880

== ENCOUNTER 2022-01-19 09:42 | Emergency (ER) | payer MEDICARE ==
[2022-01-19 10:44] LABS: Basophils % (A) 0 %; Eosinophils # (A) 0.2 k/uL (0-0.7); Eosinophils % (A) 2 %; HCT 32.7 % (34.0-46.0); HGB 10.5 gm/dL (11.4-16.0); Hypochromasia Slight; Lymphocytes # (A) 1.6 k/uL (1.0-4.8); Lymphocytes % (A) 22 %; MCH 27.4 pg (25.0-35.0); MCV 85.7 fL (80.0-100.0); Mean Platelet Volume 7.8; Monocytes # (A) 0.4 k/uL (0-1.0); Monocytes % (A) 5 %; Neutrophils # (A) 4.9 k/uL (1.3-7.7); Neutrophils % (A) 69 %; Platelet Count 321 k/uL (150-450); RBC 3.82 m/uL (3.80-5.40); RDW 14.6 % (11.5-15.5); WBC 7.2 k/uL (3.8-10.6)
--- NOTE | 2022-01-19 10:44 | ED ---
Extremity Problem HPI - General Chief complaint: Recheck/Abnormal Lab/Rx Stated complaint: abn labs Time Seen by Provider: 01/19/22 10:05 Source: patient, family, RN notes reviewed Mode of arrival: ambulatory Limitations: no limitations - History of Present Illness Initial comments: This is an 86-year-old female who presents to the emergency department for left lower extremity swelling. She had blood work done last month revealing an elevated d-dimer. States that over the last month she has also had increasing swelling to the left lower extremity. Denies any associated pain. Her primary care provider instructed her to report to the emergency department due to the elevated d-dimer and associated leg swelling. Additionally, the patient states that she has had increasing shortness of breath and a 15 pound weight gain in the abdomen over the last 3 months. She does not have abdominal pain, but states that her abdomen feels very hard. Denies any history of similar symptoms in the past. She was trying to schedule an outpatient computed tomography scan of the abdomen and pelvis for this issue, however she has been having difficulty with her insurance. Denies any fevers, chills, sore throat, cough, chest pain, palpitations, abd ominal pain, nausea, vomiting, diarrhea, back pain, or headaches. MD Complaint: extremity pain, extremity swelling Onset/Timin -: month(s) Location: left, lower extremity History of Same: No Associated Symptoms: shortness of breath - Related Data Home Medications Medication Instructions Recorded Confirmed Levothyroxine Sodium [Synthroid] 75 mcg PO DAILY 10/05/16 11/06/19 Rosuvastatin Calcium [Crestor] 40 mg PO HS 12/11/17 11/06/19 Pantoprazole [Protonix] 40 mg PO DAILY 11/06/19 01/19/22 Cholecalciferol [Vitamin D3 (25 25 mcg PO DAILY 01/19/22 01/19/22 Mcg = 1000 Iu)] Cyanocobalamin (Vitamin B-12) 1,000 mcg PO DAILY 01/19/22 01/19/22 [Vitamin B-12] Glimepiride [Amaryl] 4 mg PO DAILY 01/19/22 Multivitamins, Thera [Multivitamin 1 tab PO DAILY 01/19/22 01/19/22 (formulary)] [place]-3 Fatty Acids [[place]-3] 1,000 mg PO DAILY 01/19/22 01/19/22 metFORMIN HCL 1,000 mg PO BID 01/19/22 Previous Rx's Medication Instructions Recorded Apixaban [Eliquis] 10 mg PO BID 7 Days #28 tab 01/19/22 Allergies Allergy/AdvReac Type Severity Reaction Status Date / Time milk AdvReac Diarrhea Verified 01/19/22 11:52 Review of Systems ROS Statement: Those systems with pertinent positive or pertinent negative responses have been documented in the HPI. ROS Other: All systems not noted in ROS Statement are negative. Past Medical History Past Medical History: Diabetes Mellitus, Sleep Apnea/CPAP/BIPAP, Thyroid Disorder History of Any Multi-Drug Resistant Organisms: None Reported Past Surgical History: Hysterectomy, Orthopedic Surgery Additional Past Surgical History / Comment(s): Right femur repair Apr 2018, Left hip surgery September 2019, Bilateral lens implants. Past Anesthesia/Blood Transfusion Reactions: No Reported Reaction Past Psychological History: No Psychological Hx Reported Smoking Status: Former smoker Past Alcohol Use History: Occasional Past Drug Use History: None Reported - Past Family History Father Family Medical History: No Reported History General Exam Limitations: no limitations General appearance: alert, in no apparent distress Head exam: Present: atraumatic, normocephalic, normal inspection Respiratory exam: Present: normal lung sounds bilaterally. Absent: respiratory distress, wheezes, rales, rhonchi, stridor Cardiovascular Exam: Present: regular rate, normal rhythm, normal heart sounds. Absent: systolic murmur, diastolic murmur, rubs, gallop, clicks GI/Abdominal exam: Present: distended, normal bowel sounds. Absent: tenderness Extremities exam: Present: other (Minor left lower extremity swelling. There is no overlying erythema, increased heat, or tenderness. The swelling is nonpitting.) Neurological exam: Present: alert, oriented X3, CN II-XII intact Psychiatric exam: Present: normal affect, normal mood Skin exam: Present: warm, dry, intact, normal color. Absent: rash Course Vital Signs 01/19/22 01/19/22 09:57 12:52 Temperature 97.5 F L 97.6 F Pulse Rate 66 58 L Respiratory 16 18 Rate Blood Pressure 181/73 167/80 O2 Sat by Pulse 99 100 Oximetry Medical Decision Making - Medical Decision Making This is an 86-year-old female who presents to the emergency department for left lower extremity swelling. Repeat lab work was obtained due to the progressive abdominal swelling and weight gain, as well as the left lower extremity swelling. Lab work reveals no actionable findings, such as an elevated BNP to suggest congestive heart failure. Duplex ultrasound of the left lower extremity as well as a computed tomography scan of the abdomen and pelvis were also obtained. Duplex ultrasound reveals a partially occlusive chronic thrombus in the left lower extremity. Computed tomography scan of the abdomen and pelvis reveals no acute intra-abdominal pathologies to account for the patient's symptoms. Prescription for 7 day course of Eliquis provided. Follow up for vascular surgery was also given, she will contact them for an appointment. Patient made note that she started the actos around the time the abdominal swelling began. States that she was told that this can lead to swelling and increased fat. She did stop taking this 5 days ago. She was seeing endocrinology for management of the diabetes but plans to have her primary care provider take this over due to the poor communication with that office and feeling generally unhappy with her care there. We discussed that the actos may be related to the abdominal distention, she will follow-up with her primary care provider to reevaluate the status of this after she has been off of the actos for a longer period of time. Return precautions reviewed in depth, the patient is instructed to return to the emergency department with any new, worsening, or concerning symptoms. Patient verbalized understanding. This case was discussed in detail with the attending ED physician. Presentation, findings, and treatment plan discussed in detail as well. - Lab Data Result diagrams: 01/19/22 10:01/19/22 10: Lab Results 01/19/22 01/19/22 01/19/22 Range/Units 10:22 10:22 10: WBC 7.2 (3.8-10.6) k/uL RBC 3.82 (3.80-5.40) m/uL Hgb 10.5 L (11.4-16.0) gm/dL Hct 32.7 L (34.0-46.0) % MCV 85.7 (80.0-100.0) fL MCH 27.4 (25.0-35.0) pg MCHC 32.0 (31.0-37.0) g/dL RDW 14.6 (11.5-15.5) % Plt Count 321 (150-450) k/uL MPV 7.8 Neutrophils % 69 % Lymphocytes % 22 % Monocytes % 5 % Eosinophils % 2 % Basophils % 0 % Neutrophils # 4.9 (1.3-7.7) k/uL Lymphocytes # 1.6 (1.0-4.8) k/uL Monocytes # 0.4 (0-1.0) k/uL Eosinophils # 0.2 (0-0.7) k/uL Basophils # 0.0 (0-0.2) k/uL Hypochromasia Slight Sodium 138 (137-145) mmol/L Potassium 4.2 (3.5-5.1) mmol/L Chloride 101 (98-107) mmol/L Carbon Dioxide 26 (22-30) mmol/L Anion Gap 11 mmol/L BUN 20 H (7-17) mg/dL Creatinine 0.84 (0.52-1.04) mg/dL Est GFR (CKD-EPI)AfAm 72 (>60 ml/min/1.73 sqM) Est GFR (CKD-EPI)NonAf 63 (>60 ml/min/1.73 sqM) Glucose 180 H (74-99) mg/dL Calcium 8.8 (8.4-10.2) mg/dL Total Bilirubin 0.5 (0.2-1.3) mg/dL AST 16 (14-36) U/L ALT 13 (4-34) U/L Alkaline Phosphatase 65 (38-126) U/L Troponin I <0.012 (0.000-0.034) ng/mL NT-Pro-B Natriuret Pep pg/mL Total Protein 6.6 (6.3-8.2) g/dL Albumin 4.2 (3.5-5.0) g/dL 01/19/22 Range/Units 10:22 WBC (3.8-10.6) k/uL RBC (3.80-5.40) m/uL Hgb (11.4-16.0) gm/dL Hct (34.0-46.0) % MCV (80.0-100.0) fL MCH (25.0-35.0) pg MCHC (31.0-37.0) g/dL RDW (11.5-15.5) % Plt Count (150-450) k/uL MPV Neutrophils % % Lymphocytes % % Monocytes % % Eosinophils % % Basophils % % Neutrophils # (1.3-7.7) k/uL Lymphocytes # (1.0-4.8) k/uL Monocytes # (0-1.0) k/uL Eosinophils # (0-0.7) k/uL Basophils # (0-0.2) k/uL Hypochromasia Sodium (137-145) mmol/L Potassium (3.5-5.1) mmol/L Chloride (98-107) mmol/L Carbon Dioxide (22-30) mmol/L Anion Gap mmol/L BUN (7-17) mg/dL Creatinine (0.52-1.04) mg/dL Est GFR (CKD-EPI)AfAm (>60 ml/min/1.73 sqM) Est GFR (CKD-EPI)NonAf (>60 ml/min/1.73 sqM) Glucose (74-99) mg/dL Calcium (8.4-10.2) mg/dL Total Bilirubin (0.2-1.3) mg/dL AST (14-36) U/L ALT (4-34) U/L Alkaline Phosphatase (38-126) U/L Troponin I (0.000-0.034) ng/mL NT-Pro-B Natriuret Pep 271 pg/mL Total Protein (6.3-8.2) g/dL Albumin (3.5-5.0) g/dL - Radiology Data Radiology results: report reviewed, image reviewed Disposition Clinical Impression: Left leg DVT Disposition: HOME SELF-CARE Instructions (If sedation given, give patient instructions): Apixaban (By mouth), Deep Vein Thrombosis (ED) Additional Instructions: Return to the emergency department with any new, worsening, or concerning sym ptoms. Take the Eliquis twice daily for 7 days. You were given a dose here, take your second dose before you go to bed tonight. Contact vascular surgery as listed below for a follow-up appointment to make sure that the blood clot has resolved. Discuss the abdominal swelling with Dr. De León and medication changes for the diabetes. Follow up with your primary care provider in 1-2 days. Prescriptions: Apixaban [Eliquis] 10 mg PO BID 7 Days #28 tab Is patient prescribed a controlled substance at d/c from ED?: No Referrals: Faustina De León MD [Primary Care Provider] - 1-2 days Hans Oseguera DO [STAFF PHYSICIAN] - 1-2 days
[2022-01-19 11:03] LABS: Albumin 4.2 g/dL (3.5-5.0); Calcium 8.8 mg/dL (8.4-10.2); Potassium 4.2 mmol/L (3.5-5.1); Total Bilirubin 0.5 mg/dL (0.2-1.3); Total Protein 6.6 g/dL (6.3-8.2)
--- NOTE | 2022-01-19 11:35 | US ---
EXAMINATION TYPE: US venous doppler duplex LE LT DATE OF EXAM: 01/19/2022 11:24 AM COMPARISON: NONE CLINICAL HISTORY: left lower extremity swelling, elevated d-dimer. Swelling. No hx of DVT. Elevated D dimer. Patient does not take blood thinners. SIDE PERFORMED: Left TECHNIQUE: The lower extremity deep venous system is examined utilizing real time linear array sonog niru with graded compression, doppler sonography and color-flow sonography. VESSELS IMAGED: Common Femoral Vein Deep Femoral Vein Greater Saphenous Vein * Femoral Vein Popliteal Vein Small Saphenous Vein * Proximal Calf Veins (* superficial vessels) Left Leg: Color flow seen in veins imaged. CFV and femoral vein mid and distal do not appear to compr ess completely, however. Possible chronic thrombus along vessel oconnor. IMPRESSION: Findings suggestive of partially occlusive chronic thrombus in portions of the left lowe r extremity. Correlate clinically.
--- NOTE | 2022-01-19 11:39 | CT ---
EXAMINATION TYPE: CT abdomen pelvis wo con DATE OF EXAM: 01/19/2022 COMPARISON: None HISTORY: DISTENTION CT DLP: 420.2 mGycm Examination of the solid and hollow viscera is limited given the lack of contrast. FINDINGS: LUNG BASES: No evidence for nodule. No evidence for infiltrate. LIVER/GB: The gallbladder is surgically absent. No space-occupying hepatic lesion. PANCREAS: No pancreatic mass identified. No inflammatory process seen. SPLEEN: No evidence for splenomegaly. No intrasplenic lesions seen. ADRENALS: No adrenal nodules identified. No evidence for thickening. KIDNEYS: No evidence for renal mass. No nephrolithiasis. No hydronephrosis. BOWEL: Appendix has a normal appearance. 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 No evidence of bowel obstruction. No inflammatory process. Lymph nodes: No evidence for adenopathy greater than 1 cm. Abdominal aorta: Atheromatous changes seen. No evidence for aneurysm. Genital organs: No significant abnormality. Other: Postoperative changes of the hips. Degenerative change lumbar spine. IMPRESSION: NO SIGNIFICANT ABNORMALITY TO ACCOUNT FOR THE PATIENT'S SYMPTOMS. CECAL VALVE LIPOMA.
[2022-01-19] MEDS ORDERED: APIXABAN 5 MG TAB PO ONE (12:19)
[2022-01-19 12:54] VITALS: BP 167/80; PULSE 58; RESP 18; TEMP 97.6
== END 2022-01-19 12:56 | disposition home or self-care (01) ==
LOC: EC 09:42
DX: I82.402 Acute embolism and thrombosis of unspecified deep veins of left lower extremity (principal); E11.9 Type 2 diabetes mellitus without complications; E07.9 Disorder of thyroid, unspecified; Z87.891 Personal history of nicotine dependence; Z91.011 Allergy to milk products; Z79.84 Long term (current) use of oral hypoglycemic drugs; Z79.890 Hormone replacement therapy; Z79.899 Other long term (current) drug therapy
CPT/HCPCS: 36415; 74176; 80053; 83880; 84484; 85025; 99284

== ENCOUNTER → 2022-07-05 | Outpatient (CLI) | payer MEDICARE ==
--- NOTE | 2022-07-05 23:16 | CT ---
EXAMINATION TYPE: CT angio neck DATE OF EXAM: 07/05/2022 HISTORY: carotid stenosis COMPARISON: None CT DLP: 191 mGycm. Automated Exposure Control for Dose Reduction was Utilized. TECHNIQUE: CTA scan of the neck is performed with IV Contrast, patient injected with 65 mL of Isovue 370, axial images are obtained, coronal and sagittal reformatted images are reviewed. Three-D recons tructed images are created on an independent workstation and reviewed. Source images are reviewed. FINDINGS: Carotid/Vascular Structures: There is a three-vessel arch. The right common carotid artery is tortuou s. Bilateral carotid bifurcations have minimal plaquing without significant flow-limiting stenosis. M ild narrowing of the right internal carotid artery from plaquing at its origin. Vertebral arteries ar e codominant. IMPRESSION: 1. No flow-limiting stenosis bilateral carotid bifurcations. NASCET criteria was used in interpretation of this exam?
== END | disposition home or self-care (01) ==
LOC: RADCTMAIN 12:54
PROVIDERS: ATTEND Internal Medicine
DX: I65.23 Occlusion and stenosis of bilateral carotid arteries (principal)
CPT/HCPCS: 82565; 84520; 70498; 36415; Q9967

== ENCOUNTER → 2023-03-29 | Outpatient (CLI) | payer MEDICARE ==
[2023-03-29 10:34] LABS: African American GFR (CKD) 65 (>60 ml/min/1.73 sqM); Blood Urea Nitrogen 15 mg/dL (7-17); Non-African American GFR(CKD) 56 (>60 ml/min/1.73 sqM)
--- NOTE | 2023-04-06 04:19 | CT ---
EXAMINATION TYPE: CT abdomen pelvis w con CT DLP: 1020 mGycm, Automated exposure control for dose reduction was used. DATE OF EXAM: 03/29/2023 12:35 PM COMPARISON: 01/19/2022 CT Abdomen Pelvis Without CLINICAL INDICATION:Female, 87 years old with history of R14.0 ABDOMINAL DISTENSION; abdominal disten laci TECHNIQUE: Axial CT of the abdomen and pelvis. Sagittal and coronal reformats were created on a [employer] workstation. Contrast used:80 mL of Isovue 300 with IV Contrast, (none if empty) Oral contrast used: with Oral Contrast (none if empty) FINDINGS: LOWER CHEST: Subsegmental changes typical for atelectasis or scarring in the lung bases. Heart is mil dly enlarged with moderate to heavy coronary arterial calcifications. No pericardial effusion. ABDOMEN LIVER: Unremarkable GALLBLADDER AND BILE DUCTS: The gallbladder is surgically absent. Biliary tree does not appear pathol ogically dilated. PANCREAS: Mildly atrophic without acute finding SPLEEN: Unremarkable. ADRENAL GLANDS: Unremarkable. KIDNEYS AND URETERS: Kidneys enhance symmetrically. Mildly prominent bilateral extrarenal pelves. No evidence of hydronephrosis or visible renal calculus. Small vascular calcification left renal hilum. The ureters are unremarkable. PELVIS BLADDER: Unremarkable REPRODUCTIVE: Uterus appears small or absent. Ovaries are not clearly seen. There is no evidence for adnexal mass. ABDOMEN & PELVIS STOMACH AND BOWEL: Contrast traverses the stomach and small bowel loops without evidence of obstructi on. Some slightly thickened appearing areas of the stomach, especially proximally, probably due to un derdistention. Contrast has not yet reached the colon. 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 There is what seems to be a small noninflamed cecal diverticulum. The appendix is not seen with ce rtainty but there is no inflammatory process seen in the pericecal region. There is a moderate to la rge amount of stool throughout the colon, correlate for constipation. Several colonic diverticula mo stly distal descending and sigmoid colon, without clear evidence of inflammation. PERITONEUM/RETROPERITONEUM: No evidence of pneumoperitoneum or free fluid. VASCULATURE: Moderate atherosclerotic calcifications are present throughout the abdominal aorta and i ts branches. No evidence of aortic aneurysm. Mild to moderate narrowing of the proximal celiac, SMA, bilateral renal arteries. Portal vein, SMV, splenic vein are enhancing. Grossly unremarkable IVC. LYMPH NODES: No gross evidence for lymphadenopathy. SOFT TISSUE/ABDOMINAL WALL: Unremarkable MUSCULOSKELETAL: No acute osseous abnormalities. Moderate disc degeneration changes are present throu ghout the thoracolumbar spine. Mild degenerative retrolisthesis L2 on L3 and anterolisthesis L4 on L 5. Generalized osteopenia. Bilateral proximal femoral fixation hardware with intramedullary rods and dynamic compression screws. Moderate to severe bilateral hip arthropathy. IMPRESSION: 1. No clearly acute abnormality in the abdomen or pelvis. 2. Mild cardiomegaly, with moderate to heavy coronary arterial calcifications.
== END | disposition home or self-care (01) ==
LOC: RADCTMAIN 09:35
PROVIDERS: ATTEND Internal Medicine
DX: I25.10 Atherosclerotic heart disease of native coronary artery without angina pectoris (principal); R14.0 Abdominal distension (gaseous); I51.7 Cardiomegaly
CPT/HCPCS: 82565; 84520; 74177; 36415; Q9967

== ENCOUNTER → 2023-04-05 | Outpatient (CLI) | payer MEDICARE ==
--- NOTE | 2023-04-06 13:33 | P.PN ---
Subjective DATE: 04/05/2023 FOLLOW UP VISIT. Patient with obstructive sleep apnea hypopnea syndrome return to sleep center for follow-up visit. Information from previous visit have been reviewed. Patient was seen by me in sleep center in 04/15/2020 for consultation and at that time patient was recommended to replace sure CPAP unit. Patient received sure CPAP unit and continued to use it. Patient never came for follow-up visit after she started to use her new CPAP unit. Patient is using PAP equipment every night for the whole night, getting PAP supplies in time. The patient does not have significant problems with the mask, PAP unit and humidification. Fisk sleepiness scale is 9. I checked information from PAP unit. This is dream station 1 unit. This type of unit was on recall by [employer] in the middle of 2020. Patient never received any letter from [employer] or [employer] about necessity to replace CPAP unit. PAP unit pressure 5-11 cm H2O. Mask feet 97%. Apnea Hypopnea Index is 8.5, with the last week 6.3, which is slightly increased. MEDICATIONS:1. Metformin 2. Insulin 3. Glymepiride. 4. Levothyroxine During physical exam: GENERAL: A pleasant patient without any distress. VITAL SIGNS: BP 171/78, HR 68, RR 12, weight 121.2, temperature 97.5, oxygen saturation at room air 98 % . HEENT: PERRLA, EOMI.low position of soft palate, Mallapati 3-4 . NECK: Supple. No JVD. LUNGS: Clear to percussion and to auscultation. Good air exchange. No wheezing or rhonchi. HEART: S1, S2 regular. ABDOMEN: Soft and nontender.[] EXTREMITIES: No clubbing or cyanosis. JOB SPECIFICATION WRITER: Awake, alert, and oriented x3. No focal deficit. Impressions: 1. Obstructive sleep apnea-hypopnea syndrome. Patient demonstrated great compliance with treatment, benefiting from treatment. Patient is using dream station 1 unit, which was on recall. 2. Hypertension the office. 3. Diabetes mellitus. 4. History of thyroid nodule. 5. Hyperlipidemia. 6. Status post hysterectomy. We contacted [facility] to check what type of unit patient received in 2020. It is unit which was on recall. Plan: 1. Patient will stop using dream station 1 unit, because this unit is on recall. 2. CPAP unit should be replaced as soon as possible. 3. Follow-up visit after patient received new CPAP unit to evaluate clinical response on treatment, compliance with treatment and make any necessary adjustments Thank you very much for allowing me to participate in the management of your patient. Kit Quintanilla MD, PhD, FAASM. Diplomat of [place] [employer], Sleep Medicine Board by [place] [employer] [place] Teacher of [facility] [place]
== END ==
LOC: 3 N SLEEP 10:39
PROVIDERS: ATTEND Internal Medicine
DX: G47.33 Obstructive sleep apnea (adult) (pediatric) (principal); I10 Essential (primary) hypertension; E11.9 Type 2 diabetes mellitus without complications; E04.1 Nontoxic single thyroid nodule; E78.5 Hyperlipidemia, unspecified; Z90.710 Acquired absence of both cervix and uterus; Z91.011 Allergy to milk products; Z79.84 Long term (current) use of oral hypoglycemic drugs; Z79.890 Hormone replacement therapy; Z87.891 Personal history of nicotine dependence; Z79.4 Long term (current) use of insulin
CPT/HCPCS: 99212

== ENCOUNTER → 2023-05-02 | Outpatient (CLI) | payer MEDICARE ==
--- NOTE | 2023-05-03 10:07 | CA ---
Transthoracic Echo Report Name: Nabila Mcclelland Age: 87 Gender: F : 1935 Exam Date: 05/02/2023 12:37 Exam Location: [place] [facility] Ht (in): 61 Wt (lb): 122 Ordering Physician: Faustina De León MD Attending/Referring Phys: Casket Assembler Metal Jimena Tripathi RDCS Procedure CPT: Indications: I51.7 Cardiomegaly Cardiac Hx: Technical Quality: Fair Contrast 1: Total Dose (mL): Contrast 2: Total Dose (mL): MEASUREMENTS (Male / Female) Normal Values 2D ECHO LV Diastolic Diameter PLAX 4.1 cm 4.2 - 5.9 / 3.9 - 5.3 cm LV Systolic Diameter PLAX 2.8 cm IVS Diastolic Thickness 1.5 cm 0.6 - 1.0 / 0.6 - 0.9 cm LVPW Diastolic Thickness 1.6 cm 0.6 - 1.0 / 0.6 - 0.9 cm LV Relative Wall Thickness 0.8 RV Internal Dim ED PLAX 3.0 cm LA Volume 48.0 cm??? 18 - 58 / 22 - 52 cm??? LA Volume Index 31.0 cm???/m??? 16 - 28 cm???/m??? M-MODE Aortic Root Diameter MM 3.2 cm LA Systolic Diameter MM 4.6 cm LA Ao Ratio MM 1.5 AV Cusp Separation MM 1.4 cm DOPPLER AV Peak Velocity 169.5 cm/s AV Peak Gradient 11.5 mmHg AV Mean Velocity 118.9 cm/s AV Mean Gradient 6.2 mmHg AV Velocity Time Integral 37.6 cm LVOT Peak Velocity 113.6 cm/s LVOT Peak Gradient 5.2 mmHg LVOT Velocity Time Integral 28.6 cm MV Area PHT 1.9 cm??? Mitral E Point Velocity 63.9 cm/s Mitral A Point Velocity 112.2 cm/s Mitral E to A Ratio 0.6 MV Deceleration Time 395.8 ms MV E' Velocity 3.3 cm/s Mitral E to MV E' Ratio 19.3 TR Peak Velocity 226.7 cm/s TR Peak Gradient 20.6 mmHg Right Ventricular Systolic Press 25.6 mmHg FINDINGS Left Ventricle Moderately increased left ventricular wall thickness. Left ventricular cavity size normal. Normal left ventricular systolic function with no obvious regional wall motion abnormalities. Left ventricular ejection fraction is estimated at 55-60 %. Right Ventricle Normal right ventricular size and function. Right ventricular systolic pressure within normal limits. Right Atrium Normal right atrial size. Left Atrium Mildly increased left atrial volume. Mitral Valve Structurally normal mitral valve. No mitral stenosis, regurgitation or prolapse. Aortic Valve Trileaflet aortic valve. Trace aortic regurgitation. No aortic stenosis. Tricuspid Valve Structurally normal tricuspid valve. Mild tricuspid regurgitation. Pulmonic Valve Structurally normal pulmonic valve. Trace pulmonic regurgitation. Pericardium No pericardial effusion. Aorta Normal size aortic root and proximal ascending aorta. CONCLUSIONS Moderately increased left ventricular wall thickness Left ventricular ejection fraction 55-60% Mildly dilated left atrium No mitral regurgitation Mild tricuspid regurgitation RVSP 25 Previewed by: Dr. Randall Batres DO (Electronically Signed) Final Date: 03 May 2023 10:06
== END | disposition home or self-care (01) ==
LOC: RADECHMAIN 12:28
PROVIDERS: ATTEND Internal Medicine
DX: I51.7 Cardiomegaly (principal)
CPT/HCPCS: 93306

== ENCOUNTER → 2023-07-12 | Outpatient (CLI) | payer MEDICARE ==
--- NOTE | 2023-07-12 14:38 | P.PN ---
Subjective DATE: 07/12/2023 FOLLOW UP VISIT. Patient with obstructive sleep apnea hypopnea syndrome return to sleep center for follow-up visit. Information from previous visit have been reviewed. Patient received new CPAP unit from [employer], because her previous CPAP unit was on recall. Patient is using PAP equipment every night for the whole night, getting PAP supplies in time. The patient does not have significant problems with the mask, PAP unit and humidification. [place] sleepiness scale is 6, which is normal. I checked information from PAP unit. PAP unit pressure 5-12, aorta H9 cm H2O. Usage is 100% for more then 4 hours, average 7.2 hours per night. Leak is minimal, mask fit 99%. Apnea Hypopnea Index is 5.3, which is borderline. MEDICATIONS:1. Metformin 2. Glimepiride 3. Insulin 4. Levothyroxine During physical exam: GENERAL: A pleasant patient without any distress. VITAL SIGNS: Please see below, weight 120.4 pounds. HEENT: PERRLA, EOMI.low position of soft palate, Mallapati 3-4, retrognathia. NECK: Supple. No JVD. LUNGS: Clear to percussion and to auscultation. Good air exchange. No wheezing or rhonchi. HEART: S1, S2 regular. ABDOMEN: Soft and nontender.[] EXTREMITIES: No clubbing or cyanosis. TESTER ARMATURE OR FIELDS: Awake, alert, and oriented x3. No focal deficit. Impressions: 1. Obstructive sleep apnea-hypopnea syndrome. Patient demonstrated great compliance with treatment, benefiting from treatment. 2. Diabetes mellitus. 3. Hypertension in the office. 4. History of thyroid nodule. 5. Hyperlipidemia. 6. Status post hysterectomy. Plan: 1. Continue using PAP equipment every night for the whole night. 2. To change air filter at least 1-2 times per month. 3. PAP unit should stay lower then position of the head. 4. Advised patient to remove all remaining water from humidifier canister daily and make it dry after each usage. Refill canister with fresh distilled water before each usage. 5. Sleep hygiene with regular time in bed for at least 8 hours. 6. Precautions related to driving. No driving if feel any sleepiness. 7. I will maintain prescription for PAP supplies including mask, tube, filters. 8. Follow up visit in 6 months or earlier if patient has any problems. Thank you very much for allowing me to participate in the management of your patient. Kit Quintanilla MD, PhD, FAASM. Diplomat of [place] [employer], Sleep Medicine Board by [place] [employer] [facility] [place] Objective - Vital Signs Vital signs: Vital Signs Temp 98.1 F 07/12/23 14:14 Pulse 80 07/12/23 14:14 Resp 16 07/12/23 14:14 BP 170/80 07/12/23 14:14 Pulse Ox 96 07/12/23 14:14 FiO2 Intake & Output 07/11/23 07/12/23 07/12/23 18:59 06:59 18:59 Weight 54.544 kg
[2023-07-12 14:42] VITALS: BP 170/80; PULSE 80; RESP 16; TEMP 98.1
== END ==
LOC: 3 N SLEEP 13:38
PROVIDERS: ATTEND Internal Medicine
DX: G47.33 Obstructive sleep apnea (adult) (pediatric) (principal); E11.9 Type 2 diabetes mellitus without complications; I10 Essential (primary) hypertension; E78.5 Hyperlipidemia, unspecified; E04.1 Nontoxic single thyroid nodule; Z90.710 Acquired absence of both cervix and uterus; Z79.4 Long term (current) use of insulin; Z79.84 Long term (current) use of oral hypoglycemic drugs; Z79.890 Hormone replacement therapy; Z99.89 Dependence on other enabling machines and devices; Z91.011 Allergy to milk products; Z87.891 Personal history of nicotine dependence; Z79.899 Other long term (current) drug therapy; Z79.01 Long term (current) use of anticoagulants
CPT/HCPCS: 99212

== ENCOUNTER → 2023-07-17 | Outpatient (CLI) | payer MEDICARE ==
--- NOTE | 2023-07-17 14:43 | US ---
EXAMINATION TYPE: US carotid duplex BILAT DATE OF EXAM: 07/17/2023 COMPARISON: us 01/11/2022 CLINICAL INDICATION: Female, 87 years old with history of I65.23 OCCLUSION AND STENOSIS OF BILATERAL CAROTID; Patient denies any signs or symptoms at this time TECHNIQUE: Carotid duplex ultrasound examination. Indirect Doppler criteria was utilized. FINDINGS: EXAM MEASUREMENTS: RIGHT: Peak Systolic Velocity (PSV) cm/sec ----- Right CCA: 56 ----- Right ICA: 123 ----- Right ECA: 123 ICA/CCA ratio: 2.0 RIGHT: End Diastole cm/sec ----- Right CCA: 11 ----- Right ICA: 20 ----- Right ECA: 29 LEFT: Peak Systolic Velocity (PSV) cm/sec ----- Left CCA: 75 ----- Left ICA: 116 ----- Left ECA: 120 ICA/CCA ratio: 1.6 LEFT: End Diastole cm/sec ----- Left CCA: 13 ----- Left ICA: 28 ----- Left ECA: 12 VERTEBRALS (direction of flow): Right Vertebral: Antegrade Left Vertebral: Antegrade Rhythm: Normal TUBE FORMER OPERATOR NOTES: Calcified plaque seen at bilateral CCA bulbs IMPRESSION: Less than 50% stenosis of the bilateral carotid bifurcation. Criteria for Assigning % of Stenosis / Diameter reduction (Estimation based on the indirect measurements of the internal carotid artery velocities (ICA PSV). 1. Normal (no stenosis)=ICA PSV < 125 cm/s: ratio < 2.0: ICA EDV<40 cm/s. 2. Less than 50% stenosis=ICA PSV < 125 cm/s: ratio < 2.0: ICA EDV<40 cm/s. 3. 50 to 69% stenosis=ICA PSV of 125 to 230 cm/s: ration 2.0 ? 4.0: ICA EDV 40-100 cm/s. 4. Greater than 70% stenosis to near occlusion= ICA PSV > 230 cm/s: ratio > 4.0: ICA EDV > 100 cm/s. 5. Near occlusion= ICA PSV velocities may be low or undetectable: variable ratio and ICA EDV. 6. Total occlusion=unable to detect flow.
== END | disposition home or self-care (01) ==
LOC: RADUSWWP 12:52
PROVIDERS: ATTEND Internal Medicine
DX: I65.23 Occlusion and stenosis of bilateral carotid arteries (principal)
CPT/HCPCS: 93880

== ENCOUNTER → 2024-01-24 | Outpatient (CLI) | payer MEDICARE ==
[2024-01-24 12:06] VITALS: BP 162/69; PULSE 72; RESP 16; TEMP 98.1
--- NOTE | 2024-01-24 12:20 | P.PROGSL ---
Subjective DATE: 01/24/2024 FOLLOW UP VISIT. Patient with obstructive sleep apnea hypopnea syndrome return to sleep center for follow-up visit. Information from previous visit have been reviewed. Patient is using PAP equipment every night for the whole night, getting PAP supplies in time. The patient does not have significant problems with the mask, PAP unit and humidification. [place] sleepiness scale is increased to 12. I checked information from PAP unit. PAP unit pressure 5-12, average 8 cm H2O. Usage is 100% for more then 4 hours, average 6.75 hours per night. Mask fit 96%, which is normal. Apnea Hypopnea Index is 5.6 for the last months, which is borderline, 2.5 for the last night which is normal. MEDICATIONS have been reviewed, please see below. During physical exam: GENERAL: A pleasant patient without any distress. VITAL SIGNS: Please see below, weight is 119 lbs. HEENT: PERRLA, EOMI.low position of soft palate, Mallapati 34. NECK: Supple. No JVD. LUNGS: Clear to percussion and to auscultation. Good air exchange. No wheezing or rhonchi. HEART: S1, S2 regular. ABDOMEN: Soft and nontender.[] EXTREMITIES: No clubbing or cyanosis. CONTRACT GRAPHIC DESIGNER: Awake, alert, and oriented x3. No focal deficit. Impressions: 1. Obstructive sleep apnea-hypopnea syndrome. Patient demonstrated great compliance with treatment, benefiting from treatment. 2. Diabetes mellitus. 3. History of thyroid nodule.. 4. Blood pressure slightly increased in the office, patient drinks 2 cups of coffee in the morning. 5. Hyperlipidemia. 6. Status post hysterectomy. Plan: 1. Continue using PAP equipment every night for the whole night. 2. Sleep hygiene with regular time in bed for at least 7.5-8 hours 3. PAP unit should stay lower then position of the head. 4. Advised patient to remove all remaining water from humidifier canister daily and make it dry after each usage. Refill canister with fresh distilled water before each usage. 5. Watching weight. 6. Precautions related to driving. No driving if feel any sleepiness. 7. I will maintain prescription for PAP supplies including mask, tube, filters. 8. Follow up visit in 8 months or earlier if patient has any problems. Thank you very much for allowing me to participate in the management of your patient. Kit Quintanilla MD, PhD, FAASM. Diplomat of [place] [employer], Sleep Medicine Board by [place] [employer] [facility] [place] cc: Faustina De León MD Objective - Vital Signs Vital Signs: Vital Signs Temp 98.1 F 01/24/24 12:05 Pulse 72 01/24/24 12:05 Resp 16 01/24/24 12:05 BP 162/69 01/24/24 12:05 Pulse Ox 97 01/24/24 12:05 FiO2 Intake & Output 01/23/24 01/24/24 01/24/24 18:59 06:59 18:59 Weight 53.977 kg Home Medications: Home Medications Medication Instructions Recorded Confirmed Type Levothyroxine Sodium [Synthroid] 75 mcg PO DAILY 10/05/16 01/24/24 History Rosuvastatin Calcium [Crestor] 40 mg PO HS 12/11/17 01/24/24 History Pantoprazole [Protonix] 40 mg PO DAILY 11/06/19 01/24/24 History Apixaban [Eliquis] 10 mg PO BID 7 Days #28 tab 01/19/22 Rx Cholecalciferol [Vitamin D3 (25 25 mcg PO DAILY 01/19/22 01/19/22 History Mcg = 1000 Iu)] Cyanocobalamin (Vitamin B-12) 1,000 mcg PO DAILY 01/19/22 01/24/24 History [Vitamin B-12] Glimepiride [Amaryl] 4 mg PO DAILY 01/19/22 01/24/24 History Multivitamins, Thera [Multivitamin 1 tab PO DAILY 01/19/22 01/24/24 History (formulary)] Trenary-3 Fatty Acids [Trenary-3] 1,000 mg PO DAILY 01/19/22 01/19/22 History metFORMIN HCL 1,000 mg PO BID 01/19/22 01/24/24 History Insulin Glargine,Hum.rec.anlog See Rx Instructions .ROUTE .COMPLEX 01/24/24 01/24/24 History [Basaglar Tempo Pen U-100]
== END ==
LOC: 3 N SLEEP 11:14
PROVIDERS: ATTEND Internal Medicine
DX: G47.33 Obstructive sleep apnea (adult) (pediatric) (principal); E11.9 Type 2 diabetes mellitus without complications; E78.5 Hyperlipidemia, unspecified; R03.0 Elevated blood-pressure reading, without diagnosis of hypertension; Z90.710 Acquired absence of both cervix and uterus; Z86.39 Personal history of other endocrine, nutritional and metabolic disease; Z99.89 Dependence on other enabling machines and devices; Z91.011 Allergy to milk products; Z79.4 Long term (current) use of insulin; Z79.84 Long term (current) use of oral hypoglycemic drugs; Z87.891 Personal history of nicotine dependence
CPT/HCPCS: 99212

== ENCOUNTER 2024-01-26 09:00 | Emergency (ER) | payer MEDICARE ==
[2024-01-26 09:04] VITALS: BP 191/73; PULSE 62; RESP 16; TEMP 97.4
[2024-01-26] MEDS: predniSONE 50 MG TAB PO STA (09:49)
[2024-01-26] MEDS: KETOROLAC 15 MG/ML 1 ML VIAL IM STA (09:51)
[2024-01-26] MEDS: HYDROmorphone 0.5 MG/0.5 ML SYRINGE IM STA (09:51)
--- NOTE | 2024-01-26 09:59 | ED ---
Back Pain HPI - General Chief Complaint: Back Pain/Injury Stated Complaint: BACK PAIN Time Seen by Provider: 01/26/24 09:05 Source: patient, RN notes reviewed, old records reviewed Limitations: no limitations - History of Present Illness Initial Comments: This is an 88-year-old female who presents to the emergency department complaining of left lower back pain. Patient states it radiates into her buttocks. Patient states she has a history of sciatica. Patient was worried about a kidney stone because people told her she had a kidney stone though she has had no dysuria hematuria. Patient has no history of kidney stones. Patient states movement definitely makes the pain worse. Patient denies no numbness or weakness. Patient denies any radiation down her leg but only into her buttock. - Related Data Home Medications Medication Instructions Recorded Confirmed Levothyroxine Sodium [Synthroid] 75 mcg PO DAILY 10/05/16 01/24/24 Rosuvastatin Calcium [Crestor] 40 mg PO HS 12/11/17 01/24/24 Pantoprazole [Protonix] 40 mg PO DAILY 11/06/19 01/24/24 Cholecalciferol [Vitamin D3 (25 25 mcg PO DAILY 01/19/22 01/19/22 Mcg = 1000 Iu)] Cyanocobalamin (Vitamin B-12) 1,000 mcg PO DAILY 01/19/22 01/24/24 [Vitamin B-12] Glimepiride [Amaryl] 4 mg PO DAILY 01/19/22 01/24/24 Multivitamins, Thera [Multivitamin 1 tab PO DAILY 01/19/22 01/24/24 (formulary)] Mars-3 Fatty Acids [Mars-3] 1,000 mg PO DAILY 01/19/22 01/19/22 metFORMIN HCL 1,000 mg PO BID 01/19/22 01/24/24 Insulin Glargine,Hum.rec.anlog See Rx Instructions .ROUTE .COMPLEX 01/24/24 01/24/24 [Basaglar Tempo Pen U-100] Previous Rx's Medication Instructions Recorded Apixaban [Eliquis] 10 mg PO BID 7 Days #28 tab 01/19/22 Sulfamethox-Tmp 800-160Mg [Bactrim 1 each PO Q12HR #14 tab 01/26/24 DS 800-160 mg] Allergies Allergy/AdvReac Type Severity Reaction Status Date / Time milk AdvReac Diarrhea Verified 01/26/24 09:04 Review of Systems ROS Statement: Those systems with pertinent positive or pertinent negative responses have been documented in the HPI. ROS Other: All systems not noted in ROS Statement are negative. Past Medical History Past Medical History: Diabetes Mellitus, Sleep Apnea/CPAP/BIPAP, Thyroid Disorder History of Any Multi-Drug Resistant Organisms: None Reported Past Surgical History: Hysterectomy, Orthopedic Surgery Additional Past Surgical History / Comment(s): Right femur repair Apr 2018, Left hip surgery September 2019, Bilateral lens implants. Past Anesthesia/Blood Transfusion Reactions: No Reported Reaction Past Psychological History: No Psychological Hx Reported Smoking Status: Former smoker Past Alcohol Use History: Occasional Past Drug Use History: None Reported - Past Family History Father Family Medical History: No Reported History General Exam - General Exam Comments Initial Comments: GENERAL: Patient is well-developed and well-nourished. Patient is nontoxic and well- hydrated and is in mild distress. ENT: Neck is soft and supple. No significant lymphadenopathy is noted. Oropharynx is clear. Moist mucous membranes. Neck has full range of motion without eliciting any pain. EYES: The sclera were anicteric and conjunctiva were pink and moist. Extraocular movements were intact and pupils were equal round and reactive to light. Eyelids were unremarkable. PULMONARY: Unlabored respirations. Good breath sounds bilaterally. No audible rales rhonchi or wheezing was noted. CARDIOVASCULAR: There is a regular rate and rhythm without any murmurs gallops or rubs. ABDOMEN: Soft and nontender with normal bowel sounds. SKIN: Skin is clear with no lesions or rashes and otherwise unremarkable. NEUROLOGIC: Patient is alert and oriented x3. Cranial nerves II through XII are grossly intact. Motor and sensory are also intact. Normal speech, volume and content. Symmetrical smile. MUSCULOSKELETAL: Normal extremities with adequate strength and full range of motion. Patient has pain in the left lateral lower back as well as in the buttocks region movement of the leg makes it worse she has positive straight leg test at about 30 degrees of the left leg LYMPHATICS: No significant lymphadenopathy is noted PSYCHIATRIC: Normal psychiatric evaluation. Limitations: no limitations Course Vital Signs 01/26/24 09:01 Temperature 97.4 F L Pulse Rate 62 Respiratory 16 Rate Blood Pressure 191/73 O2 Sat by Pulse 99 Oximetry Medical Decision Making - Medical Decision Making Was pt. sent in by a medical professional or institution (RAGHU Connor, GINNING OPERATOR, urgent care, hospital, or assisted...) When possible be specific @ -No Did you speak to anyone other than the patient for history (EMS, parent, family, police, friend...)? What history was obtained from this source @ -No Did you review nursing and triage notes (agree or disagree)? Why? @ -I reviewed and agree with nursing and triage notes Were old charts reviewed (outside hosp., previous admission, EMS record, old EKG, old radiological studies, urgent care reports/EKG's, assisted records)? Report findings @ -No old charts were reviewed Differential Diagnosis? @ -Differential Back Pain: Strain, zoster, cauda equina syndrome, epidural abscess, vertebral osteomyelitis, discitis, fracture, subluxation, disc herniation, DJD, spinal stenosis, dissection, AAA, pancreatitis, peptic ulcer disease, pyelonephritis, kidney stone, this is not meant to be an all-inclusive list. EKG interpreted by me (3pts min.). @ -As above X-rays interpreted by me (1pt min.). @ -Lumbosacral spine shows no acute abnormality CT interpreted by me (1pt min.). @ -None done U/S interpreted by me (1pt. min.). @ -None done What testing was considered but not performed or refused? (CT, X-rays, U/S, labs)? Why? @ -None What meds were considered but not given or refused? Why? @ -None Did you discuss the management of the patient with other professionals (professionals i.e. RAGHU Connor, GINNING OPERATOR, lab, RT, psych nurse, social work job titles, loan funder, teacher, officer lieutenant, disability case manager)? Give summary @ -No Was smoking cessation discussed for >3mins.? @ -No Was critical care preformed (if so, how long)? @ -No Were there social determinants of health that impacted care today? How? (Homelessness, low income, unemployed, alcoholism, drug addiction, transportation, low edu. Level, literacy, decrease access to med. care, group home, rehab)? @ -No Was there de-escalation of care discussed even if they declined (Discuss DNR or withdrawal of care, Hospice)? DNR status @ -No What co-morbidities impacted this encounter? (DM, HTN, Smoking, COPD, CAD, Cancer, CVA, ARF, Chemo, Hep., AIDS, mental health diagnosis, sleep apnea, morbid obesity)? @ -None Was patient admitted / discharged? Hospital course, mention meds given and route, prescriptions, significant lab abnormalities, going to OR and other pertinent info. @ -Patient's urine showed a urinary tract infection she was given a gram of Rocephin in the emergency department. Patient was given prednisone and Dilaudid in the emergency department she is feeling considerably better. Undiagnosed new problem with uncertain prognosis? @ -No Drug Therapy requiring intensive monitoring for toxicity (Heparin, Nitro, Insulin, Cardizem)? @ -No Were any procedures done? @ -No Diagnosis/symptom? @ -Sciatica Acute, or Chronic, or Acute on Chronic? @ -Acute Uncomplicated (without systemic symptoms) or Complicated (systemic symptoms)? @ -Uncomplicated Side effects of treatment? @ -No Exacerbation, Progression, or Severe Exacerbation? @ -No Poses a threat to life or bodily function? How? (Chest pain, [place], [place], pneumonia, PE, COPD, DKA, ARF, appy, cholecystitis, CVA, Diverticulitis, Homicidal, Suicidal, threat to staff... and all critical care pts) @ -No Diagnosis/symptom? @ -Urinary tract infection Acute, or Chronic, or Acute on Chronic? @ -Acute Uncomplicated (without systemic symptoms) or Complicated (systemic symptoms)? @ -Uncomplicated Side effects of treatment? @ -None Exacerbation, Progression, or Severe Exacerbation] @ -No Poses a threat to life or bodily function? @ -No - Lab Data Lab Results 01/26/24 Range/Units 09:41 Urine Color Colorless Urine Appearance Cloudy H (Clear) Urine pH 7.0 (5.0-8.0) Ur Specific Muse 1.012 (1.001-1.035) Urine Protein Negative (Negative) Urine Glucose (UA) Negative (Negative) Urine Ketones Negative (Negative) Urine Blood Negative (Negative) Urine Nitrite Positive H (Negative) Urine Bilirubin Negative (Negative) Urine Urobilinogen <2.0 (<2.0) mg/dL Ur Leukocyte Esterase Large H (Negative) Urine RBC 1 (0-5) /hpf Urine WBC 62 H (0-5) /hpf Ur Squamous Epith Cells <1 (0-4) /hpf Urine Bacteria Many H (None) /hpf Urine Mucus Rare H (None) /hpf Disposition Clinical Impression: Sciatica, Urinary tract infection Disposition: HOME SELF-CARE Instructions (If sedation given, give patient instructions): Sciatica (ED), Urinary Tract Infection in Women (ED) Prescriptions: Sulfamethox-Tmp 800-160Mg [Bactrim DS 800-160 mg] 1 each PO Q12HR #14 tab Is patient prescribed a controlled substance at d/c from ED?: No Referrals: Faustina De León MD [Primary Care Provider] - 1-2 days Time of Disposition: 12:06
--- NOTE | 2024-01-26 10:14 | XR ---
EXAMINATION TYPE: XR lumbosacral spine min 4V DATE OF EXAM: 01/26/2024 10:07 AM INDICATION: Patient age:Female; 88 years old; Reason for study: Lower back pain; PHH. COMPARISON: CT abdomen pelvis 03/29/2023, lumbar spine radiograph 11/01/2019 TECHNIQUE: Frontal, bilateral oblique, lateral, and coned down lateral L5-S1 spot views were obtained of the lumbar spine. 5 views. FINDINGS: There are 5 lumbar type vertebral bodies identified. No evidence of any acute osseous patho logy. No evidence of loss of vertebral body height is seen. Mild retrolisthesis of L2 on L3. Grade 1 anterolisthesis of L4 on L5. Multilevel facet arthropathy. Multilevel disc space narrowing with endp late sclerosis and anterior osteophytosis. Atherosclerotic calcification of the aorta. Cholecystectom y clips in the right upper quadrant. IMPRESSION: 1. No acute process. 2. Moderate multilevel degenerative disc disease and facet arthropathy. 3. Mild retrolisthesis L2 on L3 and grade 1 anterolisthesis of L4 on L5 redemonstrated. [facility], , 01/26/2024 10:12 AM
[2024-01-26 11:24] LABS: Appearance,Urine Cloudy (Clear); Bacteria,Urine Many /hpf; Bilirubin,Urine Negative (Negative); Blood,Urine Negative (Negative); Color,Urine Colorless; Glucose,Urine (UA) Negative (Negative); Ketones,Urine Negative (Negative); Leukocyte Esterase,Urine Large (Negative); Mucus,Urine Rare /hpf; Nitrite,Urine Positive (Negative); Protein,Urine Negative (Negative); RBC,Urine 1 /hpf (0-5); Specific Gravity,Urine 1.012 (1.001-1.035); Squamous Epithelial Cell,Urine <1 /hpf (0-4); Urobilinogen,Urine <2.0 mg/dL (<2.0); WBC,Urine 62 /hpf (0-5)
[2024-01-26] MEDS: cefTRIAXone 1,000 MG VIAL (IM USE) IM STA (12:26)
== END 2024-01-26 12:35 | disposition home or self-care (01) ==
LOC: EC 09:00
DX: M54.40 Lumbago with sciatica, unspecified side (principal); N39.0 Urinary tract infection, site not specified; Z91.011 Allergy to milk products; Z87.891 Personal history of nicotine dependence
CPT/HCPCS: 81001; 72110; 99284; 96372 ×3; J0696; J1885; J7512; J1171

== ENCOUNTER → 2024-06-03 | Outpatient (CLI) | payer MEDICARE ==
--- NOTE | 2024-06-03 13:29 | US ---
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 Patient states she went on a trip and an outside facility found a blood clot in her left leg on . She said it was found on CT. She was taking eliquis, but stopped taking it, and now she has been taking baby aspirin x 2 weeks. TECHNIQUE: The lower extremity deep venous system is examined utilizing real time linear array sonog niru with graded compression, color doppler sonography, and spectral doppler. SIDE PERFORMED: Bilateral FINDINGS: VESSELS IMAGED: Common Femoral Vein Deep Femoral Vein Greater Saphenous Vein * Femoral Vein Popliteal Vein Small Saphenous Vein * Proximal Calf Veins (* superficial vessels) Right Leg: No evidence of DVT, Color Doppler imaging shows patency of the vessels. Left Leg: No evidence of DVT, Color Doppler imaging shows patency of the vessels. IMPRESSION: [facility], , 06/03/2024 1:27 PM
== END | disposition home or self-care (01) ==
LOC: RADUSWWP 12:33
PROVIDERS: ATTEND Internal Medicine
DX: I82.552 Chronic embolism and thrombosis of left peroneal vein (principal)
CPT/HCPCS: 93970